=== PATIENT | male | born 1970 | race Caucasian/White ===

== ENCOUNTER 2016-11-26 00:11 | Emergency (ER) | payer MEDICAID, OTHER ==
[2016-11-26] MEDS ORDERED: KETOROLAC 60 MG/2 ML VIAL IVP STA (01:32)
[2016-11-26] MEDS ORDERED: KETOROLAC 30 MG/ML VIAL ONE (01:39)
[2016-11-26] MEDS ORDERED: HYDROcod/ACET 5/325 Prepack 6 PO STA (03:37)
[2016-11-26] MEDS ORDERED: HYDROcod/ACET 5/325 Prepack 6 PO ONE (03:40)
== END 2016-11-26 03:47 | disposition home or self-care (01) ==
DX: N20.2 Calculus of kidney with calculus of ureter (principal)

== ENCOUNTER 2016-11-29 01:44 | Emergency (ER) | payer MEDICAID ==
[2016-11-29] MEDS ORDERED: TAMSULOSIN 0.4 MG CAPSULE PO STA (03:12)
[2016-11-29] MEDS ORDERED: KETOROLAC 60 MG/2 ML VIAL IM STA (03:12)
[2016-11-29] MEDS ORDERED: HYDROmorphone 1 MG/ML SYRINGE IM STA (03:12)
[2016-11-29] MEDS ORDERED: TAMSULOSIN 0.4 MG CAPSULE ONE (03:14)
[2016-11-29] MEDS ORDERED: HYDROmorphone 1 MG/ML SYRINGE ONE (03:14)
[2016-11-29] MEDS ORDERED: KETOROLAC 60 MG/2 ML VIAL ONE (03:14)
[2016-11-29] MEDS ORDERED: oxyCODONE/ACET 5/325 Prepack 4 PO STA (05:16)
[2016-11-29] MEDS ORDERED: oxyCODONE/ACET 5/325 Prepack 4 PO ONE (05:19)
== END 2016-11-29 05:33 | disposition home or self-care (01) ==
DX: N23 Unspecified renal colic (principal); Z87.442 Personal history of urinary calculi
CPT/HCPCS: 96372; 99283; 99284; A9270; J1170

== ENCOUNTER 2017-04-04 00:28 | Inpatient (IN) | payer MEDICAID ==
[2017-04-04 00:57] LABS: BILIRUBIN,URINE NEGATIVE (NEGATIVE)
[2017-04-04 00:58] LABS: UA CHARGE (STRIP ONLY) YES; UR CULTURE IF IND NOT INDICATED
--- NOTE | 2017-04-04 02:00 | ED Physician Documentation ---
PD HPI ABD PAIN - Stated complaint Stated Complaint: ABDOMINAL PAIN - Chief complaint Chief Complaint: Abd Pain - History obtained from History obtained from: Patient - History of Present Illness Timing - onset: How many weeks ago (1) Timing - duration: Weeks (1) Timing - details: Gradual onset, Constant, Waxing and waning Pain level now: 6 Quality: Pain Location: Other (across lower abdomen, predominantly midline) Radiation: Lower back Improved by: Other (no ameliorating factors) Worsened by: Other (worse when he urinates or has BM) Associated symptoms: No: Fever, Nausea, Vomiting, Diarrhea, Constipation Similar symptoms before: Has not had sx before Recently seen: Not recently seen Review of Systems Constitutional: reports: Reviewed and negative Eyes: reports: Reviewed and negative Ears: reports: Reviewed and negative Nose: reports: Reviewed and negative Throat: reports: Reviewed and negative Cardiac: reports: Reviewed and negative Respiratory: reports: Reviewed and negative GI: reports: Abdominal Pain. denies: Abdominal Swelling, Nausea, Vomiting, Constipation, Diarrhea, Bloody / black stool : denies: Dysuria (pain is worse with urination, but no dysuria per se), Frequency Skin: reports: Reviewed and negative Musculoskeletal: denies: Back pain (abdominal pain radiates to back, but no back pain per se) Neurologic: reports: Reviewed and negative PD PAST MEDICAL HISTORY - Past Medical History Past Medical History: Yes : Kidney stones - Past Surgical History Past Surgical History: Yes General: Other - Present Medications Home Medications: Ambulatory Orders Medication Instructions Recorded Confirmed HYDROcod/ACETAM 5/325 [[place] 5/325] 1 - 2 ea PO Q6H PRN #20 tablet 11/26/16 Ondansetron HCl [Zofran] 4 mg PO Q6HR PRN #14 tablet 11/26/16 11/29/16 Tamsulosin [Flomax] 0.4 mg PO DAILY #7 capsule 11/29/16 oxyCODONE/ACET 5/325 [Percocet 5 2 each PO Q6H PRN #20 tablet 11/29/16 mg/325 mg] - Allergies Allergies/Adverse Reactions: Allergies Allergy/AdvReac Type Severity Reaction Status Date / Time No Known Drug Allergies Allergy Verified 04/04/17 00:34 - Living Situation Living Arrangement: reports: At home - Social History Does the pt smoke?: No Smoking Status: Never smoker Does the pt drink ETOH?: No Does the pt have substance abuse?: No - Immunizations Immunizations are current?: Yes - POLST Patient has POLST: No PD ED PE NORMAL - Vitals Vital signs reviewed: Yes - General General: Alert and oriented X 3, No acute distress (NAD at rest, appears uncomfortable with movement), Well developed/nourished - HEENT HEENT: Moist mucous membranes - Neck Neck: Supple, no meningeal sign - Cardiac Cardiac: RRR, No murmur - Respiratory Respiratory: No respiratory distress, Clear bilaterally - Abdomen Abdomen: Soft, Non distended, Other (moderate tenderness across lower abdomen without guarding or rebound) - Back Back: No CVA TTP - Derm Derm: Normal color, Warm and dry - Extremities Extremities: No edema Results - Vitals Vitals: Vital Signs - 24 hr 04/04/17 00:31 Temperature 36.4 C L Heart Rate 99 Respiratory 18 Rate Blood Pressure 134/79 H O2 Saturation 97 Oxygen O2 Source Room air - Labs Labs: Laboratory Tests 04/04/17 04/04/17 04/04/17 00:45 02:25 02:25 WBC 14.4 H RBC 4.22 L Hgb 12.7 L Hct 37.6 L MCV 89.0 MCH 30.0 MCHC 33.7 RDW 12.6 Plt Count 204 MPV 8.8 Neut # 10.7 H Lymph # 2.1 [place] # 1.3 H Eos # 0.1 Baso # 0.1 Absolute Nucleated RBC 0.00 Nucleated RBCs 0.0 Sodium 134 L Potassium 3.7 Chloride 102 Carbon Dioxide 23 Anion Gap 9.0 BUN 14 Creatinine 0.9 Estimated GFR (MDRD) 92 Glucose 143 H Glycated Hemoglobin Estim Average Glucose Lactic Acid Calcium 8.6 Total Bilirubin 0.5 AST 16 ALT 18 Alkaline Phosphatase 62 Total Protein 7.7 Albumin 3.7 Globulin 4.0 Albumin/Globulin Ratio 0.9 L Lipase 25 Urine Color YELLOW Urine Clarity CLEAR Urine pH 7.0 Ur Specific [place] 1.015 Urine Protein NEGATIVE Urine Glucose (UA) NEGATIVE Urine Ketones TRACE Urine Occult Blood TRACE-INTA Urine Nitrite NEGATIVE Urine Bilirubin NEGATIVE Urine Urobilinogen 0.2 (NORMAL) Ur Leukocyte Esterase NEGATIVE Ur Microscopic Review NOT INDICATED Urine Culture Comments NOT INDICATED 04/04/17 04/04/17 02:25 04:26 WBC RBC Hgb Hct MCV MCH MCHC RDW Plt Count MPV Neut # Lymph # [place] # Eos # Baso # Absolute Nucleated RBC Nucleated RBCs Sodium Potassium Chloride Carbon Dioxide Anion Gap BUN Creatinine Estimated GFR (MDRD) Glucose Glycated Hemoglobin 6.1 Estim Average Glucose 128 H Lactic Acid 0.5 Calcium Total Bilirubin AST ALT Alkaline Phosphatase Total Protein Albumin Globulin Albumin/Globulin Ratio Lipase Urine Color Urine Clarity Urine pH Ur Specific [place] Urine Protein Urine Glucose (UA) Urine Ketones Urine Occult Blood Urine Nitrite Urine Bilirubin Urine Urobilinogen Ur Leukocyte Esterase Ur Microscopic Review Urine Culture Comments - Rads (name of study) CT A/P Radiology: Prelim report reviewed, See rad report PD MEDICAL DECISION MAKING - ED course Complexity details: reviewed results, re-evaluated patient, considered differential, d/w patient ED course: D/W Dr. Quiles, recommends admit to hospitalist for medical management ( expecting that surgical management will be unlikely). D/W Dr. Patricio, will admit to hospitalist service Departure - Departure Disposition: [facility] DC/Xfer Clinical Impression: Diverticulitis of gastrointestinal tract Condition: Good Discharge Date/Time: 04/04/17 05:30
[2017-04-04 02:44] LABS: ALBUMIN/GLOBULIN RATIO 0.9 (1.0-2.2); BILIRUBIN,TOTAL 0.5 mg/dL (0.2-1.0); CALCIUM 8.6 mg/dL (8.5-10.3); CREATININE 0.9 mg/dL (0.6-1.2); POTASSIUM 3.7 mmol/L (3.5-5.0); TOTAL PROTEIN 7.7 g/dL (6.7-8.2)
[2017-04-04 02:45] LABS: BASOPHILS # (AUTO) 0.1 10^3/uL (0.0-0.1); BASOPHILS % (AUTO) 0.5 %; EOSINOPHILS # (AUTO) 0.1 10^3/uL (0.0-0.7); EOSINOPHILS % (AUTO) 0.9 %; HCT - HEMATOCRIT 37.6 % (42.0-52.0); HGB - HEMOGLOBIN 12.7 g/dL (14.0-18.0); LYMPHOCYTES # (AUTO) 2.1 10^3/uL (1.5-3.5); LYMPHOCYTES % (AUTO) 14.9 %; MEAN CORPUSCULAR HGB CONC 33.7 g/dL (32.0-36.0); MEAN PLATELET VOLUME 8.8 fL (7.4-11.4); MONOCYTES # (AUTO) 1.3 10^3/uL (0.0-1.0); MONOCYTES % (AUTO) 9.3 %; NEUTROPHILS # (AUTO) 10.7 10^3/uL (1.5-6.6); NEUTROPHILS % (AUTO) 74.4 %; RED BLOOD COUNT 4.22 10^6/uL (4.70-6.10); RED CELL DISTRIBUTION WIDTH 12.6 % (12.0-15.0); UNCORRECTED WHITE BLOOD COUNT 14.4 x10^3/uL; WHITE BLOOD COUNT 14.4 x10^3/uL (4.8-10.8)
[2017-04-04] MEDS ORDERED: IOPAMIDOL-300 100 ML VIAL IVP ONE (03:31)
--- NOTE | 2017-04-04 03:51 | CT Preliminary Report ---
Exam: CT Abdomen/Pelvis W/ IMPRESSION: 1. Sigmoid diverticulitis. Suspected developing diverticular abscess measuring approximately 3.7 x 3. 2 cm. 2. Fatty liver with mild splenomegaly. RADIA The above critical findings were discussed with Dr. Morrison by Dr. David Mcdonnell at 03:49 hrs on 03/10 05/25. SITE ID: [id number]
--- NOTE | 2017-04-04 03:54 | CT Report ---
EXAM: CT ABDOMEN AND PELVIS EXAM DATE: 04/04/2017 03:19 AM. CLINICAL HISTORY: Lower abdominal pain. COMPARISONS: 11/26/2016. TECHNIQUE: Routine helical CT imaging was performed through the abdomen and pelvis. IV contrast: Jocelyn onic. Enteric contrast: No. Reconstructions: Coronal and sagittal. In accordance with CT protocol optimization, one or more of the following dose reduction techniques w ere utilized for this exam: automated exposure control, adjustment of mA and/or KV based on patient s ize, or use of iterative reconstructive technique. FINDINGS: Lung Bases: Minimal bibasilar atelectasis. Liver: Suspected fatty infiltration. Gallbladder/Bile Ducts: Unremarkable. Spleen: Enlarged at 13.3 cm. Pancreas: Normal. Adrenal Glands: Normal. Kidneys: Normal. No masses or hydronephrosis. Peritoneal Cavity/Bowel: Sigmoid diverticulitis. Suspect diverticular abscess measuring approximately 3.2 x 3.7 cm. No small bowel obstruction seen. Normal sized retroperitoneal lymph nodes. Appendix ap pears normal. Pelvic Organs: Normal. The bladder and visualized pelvic organs are within normal limits. Vasculature: No aneurysms or other significant abnormality. Bones: No significant abnormality. Other: None. IMPRESSION: 1. Sigmoid diverticulitis. Suspected developing diverticular abscess measuring approximately 3.7 x 3. 2 cm. 2. Fatty liver with mild splenomegaly. RADIA The above critical findings were discussed with Dr. Morrison by Dr. David Mcdonnell at 03:49 hrs on 03/10 05/25. Referring Provider Line: [phone] SITE ID: [id number]
[2017-04-04] MEDS ORDERED: PIPERACILLIN/TAZOBACTAM 3.375 GM in SODIUM CHLORIDE 0.9% MINIBAG 100 ML IV STA (04:21)
[2017-04-04] MEDS ORDERED: ONDANSETRON ODT 4 MG TABLET TL PRN (04:41)
[2017-04-04] MEDS ORDERED: PIPERACILLIN/TAZOBACTAM 4.5 GM in SODIUM CHLORIDE 0.9% MINIBAG 100 ML IV SCH (05:00)
[2017-04-04] MEDS: SODIUM CHLORIDE FLUSH 0.9% 10 ML SYRINGE IVP SCH ×3 (05:34→20:08)
[2017-04-04] MEDS: SODIUM CHLORIDE 0.9% 1,000 ML IV SCH ×2 (06:22→17:03)
[2017-04-04 06:28] LABS: HEMOGLOBIN A1C 0.58 g/dL
--- NOTE | 2017-04-04 07:39 | PROVIDER PROGRESS NOTE ---
Assessment/Plan - Problem List (1) Abdominal pain, acute, left lower quadrant Assessment/Plan: improving. dialudid for pain IV. surgical consult for probable abscess in sigmoid colon with diverticulitis. (2) Abscess of sigmoid colon due to diverticulitis Assessment/Plan: acute. possible absecess on CT. Surgery to consult. pain medications with Dilaudid IV and Zofran IV for nausea or vomiting. NPO with meds. monitor for output and vital signs for hypotension. White blood count elevated with Leukocytosis. continue on Zosyn IV 3.375mg. Flagyl Iv added. (3) Obesity (BMI 30-39.9) Assessment/Plan: ongoing. continue to provide counseling for weight managment. Nutrition consult recommended for diet and calorie control. - Current Meds Current Meds: Current Medications Generic Name Dose Route Start Last Admin Trade Name Freq PRN Reason Stop Dose Admin Sodium Chloride 1,000 mls @ 125 mls/hr 04/04/17 05:00 04/04/17 06:22 Normal Saline 0.9% IV 125 mls/hr .Q8H NOEMI Administration Sodium Chloride 10 ml 04/04/17 06:00 04/04/17 05:34 Normal Saline Flush 0.9% IVP 10 ml Q8HR NOEMI Administration - Lab Result Lab results reviewed: Yes Fish Bone Diagrams: 04/04/17 02:25 04/04/17 02:25 Other Lab Results: Abnormal Lab Results 04/04/17 04/04/17 04/04/17 02:25 02:25 02:25 WBC 14.4 x10^3/uL H x10^3/uL (4.8-10.8) RBC 4.22 10^6/uL L 10^6/uL (4.70-6.10) Hgb 12.7 g/dL L g/dL (14.0-18.0) Hct 37.6 % L % (42.0-52.0) Neut # 10.7 10^3/uL H 10^3/uL (1.5-6.6) [place] # 1.3 10^3/uL H 10^3/uL (0.0-1.0) Sodium 134 mmol/L L mmol/L (135-145) Glucose 143 mg/dL H mg/dL (70-100) Estim Average Glucose 128 H (70-100) Albumin/Globulin Ratio 0.9 L (1.0-2.2) - EKG Results EKG Interpreted Independently: Yes EKG Comparison: Unchanged from prior EKG - Diagnostic Imaging Results Diagnostic Imaging Results: positive: Final report reviewed, Read independently (Patient will require at least anouther 24-48 hours inpatient treatment. He is high risk for worsening co morbid conditions. He will require IV medications with high risk for toxicity and additional diagnostics and consults.) Diagnostic Imaging Results Comments: CT of abdomen and pelvis shows sigmoid diverticulitis with possible abscess. surgery called for evaluation - Additional Planning Condition/Complexity: Stable Consult/Specialty: Surgery Plan Discussed with:: Patient, Spouse Time Spent: 31-60 minutes Subjective - Subjective Patient Reports: Resting Comfortably, Abdominal Pain Nursing Reports: No Complaints (patient is up to the bathroom. Denies nausea and vomiting and diarrhea.) Objective Vital Signs: Vital Signs - 24 hr 04/04/17 05:31 Temperature 36.8 C Heart Rate [ 91 Brachial] Respiratory 16 Rate Blood Pressure 128/71 [Left Brachial artery] O2 Saturation 96 Oxygen O2 Source Room air I&O (Last 24 Hrs): Intake and Output Totals x24h 04/02/17 04/03/17 04/04/17 23:59 23:59 23:59 Intake Total 275 Output Total 275 Balance 0 General: Alert, Oriented x3, Cooperative HEENT: PERRLA Neck: Supple, No JVD, No thyromegaly Lymphatic: no adenopathy Neuro: Alert, CN 2-12 Grossly Intact Cardiovascular: Regular rate, Normal S1, Normal S2, No murmurs Respiratory: Chest non-tender, No respiratory distress, Breath sounds nml Abdomen: Soft, Other (tender to left lower quadrant of abdomen with movement and palpation) Genitourinary: Normal Inspection Rectal: Non-Tender Extremities: No clubbing, No cyanosis, No edema, Normal pulses Skin: No rashes, No breakdown, No significant lesion - Results Results: Laboratory Results WBC 14.4 x10^3/uL (4.8-10.8) H 04/04/17 02:25 RBC 4.22 10^6/uL (4.70-6.10) L 04/04/17 02:25 Hgb 12.7 g/dL (14.0-18.0) L 04/04/17 02:25 Hct 37.6 % (42.0-52.0) L 04/04/17 02:25 MCV 89.0 fL (80.0-94.0) 04/04/17 02:25 MCH 30.0 pg (27.0-31.0) 04/04/17 02:25 MCHC 33.7 g/dL (32.0-36.0) 04/04/17 02:25 RDW 12.6 % (12.0-15.0) 04/04/17 02:25 Plt Count 204 10^3/uL (130-450) 04/04/17 02:25 MPV 8.8 fL (7.4-11.4) 04/04/17 02:25 Neut # 10.7 10^3/uL (1.5-6.6) H 04/04/17 02:25 Lymph # 2.1 10^3/uL (1.5-3.5) 04/04/17 02:25 [place] # 1.3 10^3/uL (0.0-1.0) H 04/04/17 02:25 Eos # 0.1 10^3/uL (0.0-0.7) 04/04/17 02:25 Baso # 0.1 10^3/uL (0.0-0.1) 04/04/17 02:25 Absolute Nucleated RBC 0.00 x10^3/uL 04/04/17 02:25 Nucleated RBCs 0.0 /100WBC 04/04/17 02:25 Sodium 134 mmol/L (135-145) L 04/04/17 02:25 Potassium 3.7 mmol/L (3.5-5.0) 04/04/17 02:25 Chloride 102 mmol/L (101-111) 04/04/17 02:25 Carbon Dioxide 23 mmol/L (21-32) 04/04/17 02:25 Anion Gap 9.0 (6-13) 04/04/17 02:25 BUN 14 mg/dL (6-20) 04/04/17 02:25 Creatinine 0.9 mg/dL (0.6-1.2) 04/04/17 02:25 Estimated GFR (MDRD) 92 (>89) 04/04/17 02:25 Glucose 143 mg/dL (70-100) H 04/04/17 02:25 Glycated Hemoglobin 6.1 % (4.6-6.2) 04/04/17 02:25 Estim Average Glucose 128 (70-100) H 04/04/17 02:25 Lactic Acid 0.5 mmol/L (0.5-2.2) 04/04/17 04:26 Calcium 8.6 mg/dL (8.5-10.3) 04/04/17 02:25 Total Bilirubin 0.5 mg/dL (0.2-1.0) 04/04/17 02:25 AST 16 IU/L (10-42) 04/04/17 02:25 ALT 18 IU/L (10-60) 04/04/17 02:25 Alkaline Phosphatase 62 IU/L (42-121) 04/04/17 02:25 Total Protein 7.7 g/dL (6.7-8.2) 04/04/17 02:25 Albumin 3.7 g/dL (3.2-5.5) 04/04/17 02:25 Globulin 4.0 g/dL (2.1-4.2) 04/04/17 02:25 Albumin/Globulin Ratio 0.9 (1.0-2.2) L 04/04/17 02:25 Lipase 25 U/L (22-51) 04/04/17 02:25 Urine Color YELLOW 04/04/17 00:45 Urine Clarity CLEAR (CLEAR) 04/04/17 00:45 Urine pH 7.0 PH (5.0-7.5) 04/04/17 00:45 Ur Specific [place] 1.015 (1.002-1.030) 04/04/17 00:45 Urine Protein NEGATIVE mg/dL (NEGATIVE) 04/04/17 00:45 Urine Glucose (UA) NEGATIVE mg/dL (NEGATIVE) 04/04/17 00:45 Urine Ketones TRACE mg/dL (NEGATIVE) 04/04/17 00:45 Urine Occult Blood TRACE-INTA (NEGATIVE) 04/04/17 00:45 Urine Nitrite NEGATIVE (NEGATIVE) 04/04/17 00:45 Urine Bilirubin NEGATIVE (NEGATIVE) 04/04/17 00:45 Urine Urobilinogen 0.2 (NORMAL) E.U./dL (NORMAL) 05/27/17 00:45 Ur Leukocyte Esterase NEGATIVE (NEGATIVE) 04/04/17 00:45 Ur Microscopic Review NOT INDICATED 04/04/17 00:45 Urine Culture Comments NOT INDICATED 04/04/17 00:45
[2017-04-04] MEDS: metroNIDAZOLE 500 MG/100 ML 100 ML IV SCH ×3 (08:44→20:07)
[2017-04-04] MEDS ORDERED: ENOXAPARIN 40 MG/0.4 ML SYRINGE SUBQ SCH (09:00)
[2017-04-04] MEDS ORDERED: POLYETHYLENE GLYCOL 3350 17 GM PACKET PO SCH (09:00)
[2017-04-04] MEDS: FAMOTIDINE 20 MG/50 ML 50 ML IV SCH (09:57)
[2017-04-04] MEDS: PIPERACILLIN/TAZOBACTAM 4.5 GM in SODIUM CHLORIDE 0.9% MINIBAG 100 ML IV SCH ×2 (11:24→18:03)
[2017-04-04 15:51] LABS: PHOSPHORUS 3.1 mg/dL (2.5-4.6)
[2017-04-04] MEDS ORDERED: ACETAMINOPHEN 1,000 MG/100 ML 100 ML IV ONE (16:00)
[2017-04-04] MEDS ORDERED: ACETAMINOPHEN 325 MG TABLET PO PRN (18:45)
[2017-04-05] MEDS: PIPERACILLIN/TAZOBACTAM 4.5 GM in SODIUM CHLORIDE 0.9% MINIBAG 100 ML IV SCH ×4 (00:07→18:14)
[2017-04-05] MEDS: SODIUM CHLORIDE 0.9% 1,000 ML IV SCH ×3 (03:19→14:27)
[2017-04-05] MEDS: metroNIDAZOLE 500 MG/100 ML 100 ML IV SCH ×4 (03:24→20:06)
[2017-04-05] MEDS: SODIUM CHLORIDE FLUSH 0.9% 10 ML SYRINGE IVP SCH ×3 (06:05→22:18)
[2017-04-05 06:19] LABS: BASOPHILS # (AUTO) 0.1 10^3/uL (0.0-0.1); BASOPHILS % (AUTO) 0.5 %; EOSINOPHILS # (AUTO) 0.1 10^3/uL (0.0-0.7); EOSINOPHILS % (AUTO) 0.6 %; HCT - HEMATOCRIT 35.3 % (42.0-52.0); HGB - HEMOGLOBIN 11.9 g/dL (14.0-18.0); LYMPHOCYTES % (AUTO) 16.3 %; MEAN CORPUSCULAR HEMOGLOBIN 30.1 pg (27.0-31.0); MEAN CORPUSCULAR HGB CONC 33.7 g/dL (32.0-36.0); MEAN CORPUSCULAR VOLUME 89.4 fL (80.0-94.0); MEAN PLATELET VOLUME 9.3 fL (7.4-11.4); MONOCYTES # (AUTO) 1.1 10^3/uL (0.0-1.0); NEUTROPHILS % (AUTO) 73.6 %; RED BLOOD COUNT 3.95 10^6/uL (4.70-6.10); RED CELL DISTRIBUTION WIDTH 12.7 % (12.0-15.0); UNCORRECTED WHITE BLOOD COUNT 12.2 x10^3/uL; WHITE BLOOD COUNT 12.2 x10^3/uL (4.8-10.8)
[2017-04-05 06:27] LABS: ALBUMIN/GLOBULIN RATIO 0.8 (1.0-2.2); BILIRUBIN,TOTAL 0.9 mg/dL (0.2-1.0); CALCIUM 8.6 mg/dL (8.5-10.3); CREATININE 0.8 mg/dL (0.6-1.2); POTASSIUM 3.6 mmol/L (3.5-5.0)
--- NOTE | 2017-04-05 07:30 | HISTORY & PHYSICAL EXAMINATION ---
DATE OF ADMISSION: 04/04/2017 PRIMARY CARE PROVIDER: Demarco Cartwright MD CHIEF COMPLAINT: Lower abdominal pain. HISTORY OF PRESENT ILLNESS: This is a 46-year-old male who presents with a 1-week history of lower ab dominal pain. Denies any fevers or chills. Denies any alteration in bowel movements. Denies any nause a or vomiting. Evaluation in the emergency room includes a white count of 14.4 with 10.7 neutrophils. Urine reveals no acute abnormalities. Urine specific gravity 1.015. A CAT scan of abdomen and pelvis with IV contrast, no oral contrast reveals sigmoid diverticulitis suspected developing diverticular abscess measuring approximately 3.7 x 3.2 cm2, fatty liver with mild splenomegaly noted. Degree of pa in, 10 being the worst, he notes 4 to 5, never worse than that. PAST MEDICAL HISTORY: History of kidney stones. MEDICATIONS UPON ADMISSION: None. ALLERGIES: NO KNOWN DRUG ALLERGIES. 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 Smoking, none. Alcohol, none. FAMILY MEDICAL HISTORY: Mother and father with a history of type 2 diabetes. REVIEW OF SYSTEMS: All other review of systems are reviewed and are negative except for as in HPI. PHYSICAL EXAMINATION VITAL SIGNS: Temperature is afebrile. Heart rate 99, blood pressure 134/79, respiratory rate 18, room air saturation 97%. CONSTITUTIONAL: Middle-aged male in no acute distress. HEAD: Normocephalic, atraumatic. EYES: PERRLA-DC. EOMI. MOUTH: No lesions. NECK: No adenopathy. Carotids 2+/4 without bruits. CHEST: Clear to auscultation. COR: Regular rate and rhythm, S1, S2 without murmur. ABDOMEN: Soft. There is tenderness in the bilateral lower quadrants, left greater than right. No rebo und, no guarding. Bowel sounds are present. EXTREMITIES: No pedal edema. SKIN: No rashes. PSYCHIATRIC: Mood and affect are appropriate. NEUROLOGIC: Alert and oriented x3. Motor strength is intact bilaterally. LABORATORY DATA: As above, also to include hemoglobin 12.7, hematocrit 37.6, MCV 89. platelets 204. S odium 134, potassium 3.7, chloride 102, bicarbonate 23, BUN 14, creatinine 0.9, calculated GFR 97, gl ucose 143, calcium 8.6, total bilirubin 0.5, AST 16, ALT 18, alkaline phosphatase 62, total protein 7 .7, albumin 3.7, lipase 25. ASSESSMENT AND PLAN 1. Acute sigmoid diverticulitis with possible abscess, 3.2 x 3.7 cm2, present on admission. We will g o ahead and treat with IV Zosyn 4.5 grams IV q.6 hours. General Surgery, Dr. Quiles was notified by ER physician regarding this patient, and for consultation. We will make n.p.o., IV fluids, IV Dilaud id p.r.n. pain. Check lactate level. 2. Deep venous thrombosis prophylaxis. We will place on subcutaneous prophylactic Lovenox. 3. Code status. The patient is FULL CODE. TIME SPENT: 60 minutes. JOB #: [id number] EXT JOB #:[id number]
[2017-04-05] MEDS: HYDROmorphone 1 MG/ML SYRINGE IVP PRN ×2 (08:02→11:43)
[2017-04-05] MEDS: FAMOTIDINE 20 MG/50 ML 50 ML IV SCH (09:43)
--- NOTE | 2017-04-05 11:15 | PROVIDER PROGRESS NOTE ---
Assessment/Plan - Problem List (1) Abscess of sigmoid colon due to diverticulitis Assessment/Plan: A/P 46 yo male with history of diverticulosis now with diverticulitis with suspected early abscess formation likely Hinchey class I. Recommend continued current IV abx while in hospital If fever does not recur then patient can go home on Cipro/ flagyl combo for 2 weeks. IR intervention may be necessary in future if collection organizes. Recommend adding fiber to diet as well as staying hydrated. If meets criteria for discharge recommend follow up in [address] Valera for discussion of colonoscopy and Laparoscopic Surgical vs open options due to this "complicated first attack" - Current Meds Current Meds: Current Medications Generic Name Dose Route Start Last Admin Trade Name Freq PRN Reason Stop Dose Admin Hydromorphone HCl 1 mg 04/04/17 04:41 04/05/17 08:02 Dilaudid Inj IVP 1 mg Q2HR PRN Administration Pain 8 to 10 Sodium Chloride 1,000 mls @ 125 mls/hr 04/04/17 05:00 04/05/17 06:03 Normal Saline 0.9% IV Not Given .Q8H NOEMI Famotidine 50 mls @ 100 mls/hr 04/04/17 09:00 04/05/17 09:43 Pepcid 20 Mg/50 Ml IV 100 mls/hr DAILY NOEMI Administration Piperacillin Sod/Tazobactam 100 mls @ 200 mls/hr 04/04/17 12:00 04/05/17 05:57 Sod 4.5 gm/ Sodium Chloride IV 200 mls/hr Q6H NOEMI Administration Metronidazole 100 mls @ 100 mls/hr 04/04/17 08:00 04/05/17 08:02 Flagyl 500 Mg/100 Ml IV 100 mls/hr Q6H NOEMI Administration Sodium Chloride 10 ml 04/04/17 06:00 04/05/17 06:05 Normal Saline Flush 0.9% IVP Not Given Q8HR NOEMI - Lab Result Fish Bone Diagrams: 04/05/17 05:18 04/05/17 05:18 - Additional Planning Plan Discussed with:: Patient Subjective - Subjective Patient Reports: Feeling Better (Pt seen at bedside. No new complaints. Denies SOB, CP , F/C/NS, D/C. c/o minimal abdominal pain at lower quadrants. ambulating well and urinating well.), Resting Comfortably Nursing Reports: No Complaints Objective Vital Signs: Vital Signs - 24 hr 04/04/17 04/04/17 04/05/17 15:30 17:22 00:44 Temperature 38.1 C H 37.5 C 36.6 C Heart Rate [ 91 90 Brachial] Respiratory 18 16 Rate Blood Pressure 124/71 129/73 [Left Brachial artery] O2 Saturation 99 96 04/05/17 07:35 Temperature 36.8 C Heart Rate [ 80 Brachial] Respiratory 16 Rate Blood Pressure 120/60 [Left Brachial artery] O2 Saturation 97 Oxygen O2 Source Room air I&O (Last 24 Hrs): Intake and Output Totals x24h 04/03/17 04/04/17 04/05/17 23:59 23:59 23:59 Intake Total 2129 1037 Output Total 275 775 Balance 1854 262 General: Alert, Oriented x3 HEENT: EOMI Neuro: Alert Cardiovascular: Regular rate Respiratory: Chest non-tender, Breath sounds nml Abdomen: Normal bowel sounds (ND, soft. Mild tenderness to deep palpation LLQ> suprapubic), Soft Extremities: No edema, Normal pulses - Results Results: Laboratory Results WBC 12.2 x10^3/uL (4.8-10.8) H 04/05/17 05:18 RBC 3.95 10^6/uL (4.70-6.10) L 04/05/17 05:18 Hgb 11.9 g/dL (14.0-18.0) L 04/05/17 05:18 Hct 35.3 % (42.0-52.0) L 04/05/17 05:18 MCV 89.4 fL (80.0-94.0) 04/05/17 05:18 MCH 30.1 pg (27.0-31.0) 04/05/17 05:18 MCHC 33.7 g/dL (32.0-36.0) 04/05/17 05:18 RDW 12.7 % (12.0-15.0) 04/05/17 05:18 Plt Count 185 10^3/uL (130-450) 04/05/17 05:18 MPV 9.3 fL (7.4-11.4) 04/05/17 05:18 Neut # 9.0 10^3/uL (1.5-6.6) H 04/05/17 05:18 Lymph # 2.0 10^3/uL (1.5-3.5) 04/05/17 05:18 [place] # 1.1 10^3/uL (0.0-1.0) H 04/05/17 05:18 Eos # 0.1 10^3/uL (0.0-0.7) 04/05/17 05:18 Baso # 0.1 10^3/uL (0.0-0.1) 04/05/17 05:18 Absolute Nucleated RBC 0.00 x10^3/uL 04/05/17 05:18 Nucleated RBCs 0.0 /100WBC 04/05/17 05:18 Sodium 138 mmol/L (135-145) 04/05/17 05:18 Potassium 3.6 mmol/L (3.5-5.0) 04/05/17 05:18 Chloride 106 mmol/L (101-111) 04/05/17 05:18 Carbon Dioxide 24 mmol/L (21-32) 04/05/17 05:18 Anion Gap 8.0 (6-13) 04/05/17 05:18 BUN 9 mg/dL (6-20) 04/05/17 05:18 Creatinine 0.8 mg/dL (0.6-1.2) 04/05/17 05:18 Estimated GFR (MDRD) 105 (>89) 04/05/17 05:18 Glucose 89 mg/dL (70-100) 04/05/17 05:18 Glycated Hemoglobin 6.1 % (4.6-6.2) 04/04/17 02:25 Estim Average Glucose 128 (70-100) H 04/04/17 02:25 Lactic Acid 0.5 mmol/L (0.5-2.2) 04/04/17 04:26 Calcium 8.6 mg/dL (8.5-10.3) 04/05/17 05:18 Phosphorus 3.1 mg/dL (2.5-4.6) 04/04/17 07:50 Magnesium 2.0 mg/dL (1.7-2.8) 04/04/17 07:50 Total Bilirubin 0.9 mg/dL (0.2-1.0) 04/05/17 05:18 AST 14 IU/L (10-42) 04/05/17 05:18 ALT 14 IU/L (10-60) 04/05/17 05:18 Alkaline Phosphatase 51 IU/L (42-121) 04/05/17 05:18 C-Reactive Protein 15.3 mg/dL (0-1.0) H 04/04/17 07:50 Total Protein 7.0 g/dL (6.7-8.2) 04/05/17 05:18 Albumin 3.2 g/dL (3.2-5.5) 04/05/17 05:18 Globulin 3.8 g/dL (2.1-4.2) 04/05/17 05:18 Albumin/Globulin Ratio 0.8 (1.0-2.2) L 04/05/17 05:18 Amylase 46 U/L (28-100) 04/05/17 05:18 Lipase 24 U/L (22-51) 04/05/17 05:18 Urine Color YELLOW 04/04/17 00:45 Urine Clarity CLEAR (CLEAR) 04/04/17 00:45 Urine pH 7.0 PH (5.0-7.5) 04/04/17 00:45 Ur Specific [place] 1.015 (1.002-1.030) 04/04/17 00:45 Urine Protein NEGATIVE mg/dL (NEGATIVE) 04/04/17 00:45 Urine Glucose (UA) NEGATIVE mg/dL (NEGATIVE) 04/04/17 00:45 Urine Ketones TRACE mg/dL (NEGATIVE) 04/04/17 00:45 Urine Occult Blood TRACE-INTA (NEGATIVE) 04/04/17 00:45 Urine Nitrite NEGATIVE (NEGATIVE) 04/04/17 00:45 Urine Bilirubin NEGATIVE (NEGATIVE) 04/04/17 00:45 Urine Urobilinogen 0.2 (NORMAL) E.U./dL (NORMAL) 04/04/17 00:45 Ur Leukocyte Esterase NEGATIVE (NEGATIVE) 04/04/17 00:45 Ur Microscopic Review NOT INDICATED 04/04/17 00:45 Urine Culture Comments NOT INDICATED 04/04/17 00:45
--- NOTE | 2017-04-05 14:00 | PROVIDER PROGRESS NOTE ---
Assessment/Plan - Problem List (1) Abdominal pain, acute, left lower quadrant Assessment/Plan: improving. white blood cell count is improving and patient remains afebrile today. He remains afebrile and continues on antibiotics for diverticulitis. will transition to oral before discharge. continue with pain medication as needed. (2) Abscess of sigmoid colon due to diverticulitis Assessment/Plan: ongoing but improving. surgery is following. continue with antibiotics and monitor for fever and elevated white blood count. (3) Obesity (BMI 30-39.9) Assessment/Plan: ongoing. continue to encourage ambulation and low fat low calorie diet. recommend nutrition counseling as outpatient - Current Meds Current Meds: Current Medications Generic Name Dose Route Start Last Admin Trade Name Freq PRN Reason Stop Dose Admin Hydromorphone HCl 1 mg 04/04/17 04:41 04/05/17 11:43 Dilaudid Inj IVP 1 mg Q2HR PRN Administration Pain 8 to 10 Sodium Chloride 1,000 mls @ 125 mls/hr 04/04/17 05:00 04/05/17 06:03 Normal Saline 0.9% IV Not Given .Q8H NOEMI Famotidine 50 mls @ 100 mls/hr 04/04/17 09:00 04/05/17 09:43 Pepcid 20 Mg/50 Ml IV 100 mls/hr DAILY NOEMI Administration Piperacillin Sod/Tazobactam 100 mls @ 200 mls/hr 04/04/17 12:00 04/05/17 11:43 Sod 4.5 gm/ Sodium Chloride IV 200 mls/hr Q6H NOEMI Administration Metronidazole 100 mls @ 100 mls/hr 04/04/17 08:00 04/05/17 08:02 Flagyl 500 Mg/100 Ml IV 100 mls/hr Q6H NOEMI Administration Sodium Chloride 10 ml 04/04/17 06:00 04/05/17 06:05 Normal Saline Flush 0.9% IVP Not Given Q8HR NOEMI - Lab Result Lab results reviewed: Yes Fish Bone Diagrams: 04/05/17 05:18 04/05/17 05:18 Other Lab Results: Abnormal Lab Results 04/04/17 04/04/17 04/04/17 02:25 02:25 02:25 WBC 14.4 x10^3/uL H x10^3/uL (4.8-10.8) RBC 4.22 10^6/uL L 10^6/uL (4.70-6.10) Hgb 12.7 g/dL L g/dL (14.0-18.0) Hct 37.6 % L % (42.0-52.0) Neut # 10.7 10^3/uL H 10^3/uL (1.5-6.6) [place] # 1.3 10^3/uL H 10^3/uL (0.0-1.0) Sodium 134 mmol/L L mmol/L (135-145) Glucose 143 mg/dL H mg/dL (70-100) Estim Average Glucose 128 H (70-100) C-Reactive Protein Albumin/Globulin Ratio 0.9 L (1.0-2.2) Lipase 04/04/17 04/04/17 04/05/17 07:50 07:50 05:18 WBC 12.2 x10^3/uL H x10^3/uL (4.8-10.8) RBC 3.95 10^6/uL L 10^6/uL (4.70-6.10) Hgb 11.9 g/dL L g/dL (14.0-18.0) Hct 35.3 % L % (42.0-52.0) Neut # 9.0 10^3/uL H 10^3/uL (1.5-6.6) [place] # 1.1 10^3/uL H 10^3/uL (0.0-1.0) Sodium Glucose Estim Average Glucose C-Reactive Protein 15.3 mg/dL H mg/dL (0-1.0) Albumin/Globulin Ratio Lipase 21 U/L L U/L (22-51) 04/05/17 05:18 WBC RBC Hgb Hct Neut # [place] # Sodium Glucose Estim Average Glucose C-Reactive Protein Albumin/Globulin Ratio 0.8 L (1.0-2.2) Lipase - Additional Planning Condition/Complexity: Improved My Orders: My Active Orders 04/04/17 18:45 Acetaminophen [Tylenol] 650 mg PO Q4HR PRN 04/05/17 Lunch Clear Liquid Diet [DIET] Consult/Specialty: Surgery Plan Discussed with:: Patient, Spouse, Case Management Time Spent: 31-60 minutes (Plan to discharge patient within the next 24-48 hours. Patient is high risk for worsening comorbid conditions and will require additional night stay) Subjective - Subjective Patient Reports: Feeling Better, Resting Comfortably, Abdominal Pain (moderate but improving, no nausea or vomiting, no chest pain or shortness of breath) Nursing Reports: No Complaints Objective Vital Signs: Vital Signs - 24 hr 04/04/17 04/04/17 04/05/17 15:30 17:22 00:44 Temperature 38.1 C H 37.5 C 36.6 C Heart Rate [ 91 90 Brachial] Respiratory 18 16 Rate Blood Pressure 124/71 129/73 [Left Brachial artery] O2 Saturation 99 96 04/05/17 07:35 Temperature 36.8 C Heart Rate [ 80 Brachial] Respiratory 16 Rate Blood Pressure 120/60 [Left Brachial artery] O2 Saturation 97 Oxygen O2 Source Room air I&O (Last 24 Hrs): Intake and Output Totals x24h 04/03/17 04/04/17 04/05/17 23:59 23:59 23:59 Intake Total 2129 1037 Output Total 275 775 Balance 1854 262 General: Alert, Oriented x3 HEENT: PERRLA Neck: Supple, No JVD Lymphatic: no adenopathy Neuro: Alert Cardiovascular: Regular rate, Normal S1, Normal S2 Respiratory: Chest non-tender, No respiratory distress, Breath sounds nml Abdomen: Normal bowel sounds, Soft, Other (tender to left lower quadrant with palpation) Extremities: No clubbing, No cyanosis, No edema Skin: No rashes, No breakdown, No significant lesion - Results Results: Laboratory Results WBC 12.2 x10^3/uL (4.8-10.8) H 04/05/17 05:18 RBC 3.95 10^6/uL (4.70-6.10) L 04/05/17 05:18 Hgb 11.9 g/dL (14.0-18.0) L 04/05/17 05:18 Hct 35.3 % (42.0-52.0) L 04/05/17 05:18 MCV 89.4 fL (80.0-94.0) 04/05/17 05:18 MCH 30.1 pg (27.0-31.0) 04/05/17 05:18 MCHC 33.7 g/dL (32.0-36.0) 04/05/17 05:18 RDW 12.7 % (12.0-15.0) 04/05/17 05:18 Plt Count 185 10^3/uL (130-450) 04/05/17 05:18 MPV 9.3 fL (7.4-11.4) 04/05/17 05:18 Neut # 9.0 10^3/uL (1.5-6.6) H 04/05/17 05:18 Lymph # 2.0 10^3/uL (1.5-3.5) 04/05/17 05:18 [place] # 1.1 10^3/uL (0.0-1.0) H 04/05/17 05:18 Eos # 0.1 10^3/uL (0.0-0.7) 04/05/17 05:18 Baso # 0.1 10^3/uL (0.0-0.1) 04/05/17 05:18 Absolute Nucleated RBC 0.00 x10^3/uL 04/05/17 05:18 Nucleated RBCs 0.0 /100WBC 04/05/17 05:18 Sodium 138 mmol/L (135-145) 04/05/17 05:18 Potassium 3.6 mmol/L (3.5-5.0) 04/05/17 05:18 Chloride 106 mmol/L (101-111) 04/05/17 05:18 Carbon Dioxide 24 mmol/L (21-32) 04/05/17 05:18 Anion Gap 8.0 (6-13) 04/05/17 05:18 BUN 9 mg/dL (6-20) 04/05/17 05:18 Creatinine 0.8 mg/dL (0.6-1.2) 04/05/17 05:18 Estimated GFR (MDRD) 105 (>89) 04/05/17 05:18 Glucose 89 mg/dL (70-100) 04/05/17 05:18 Glycated Hemoglobin 6.1 % (4.6-6.2) 04/04/17 02:25 Estim Average Glucose 128 (70-100) H 04/04/17 02:25 Lactic Acid 0.5 mmol/L (0.5-2.2) 04/04/17 04:26 Calcium 8.6 mg/dL (8.5-10.3) 04/05/17 05:18 Phosphorus 3.1 mg/dL (2.5-4.6) 04/04/17 07:50 Magnesium 2.0 mg/dL (1.7-2.8) 04/04/17 07:50 Total Bilirubin 0.9 mg/dL (0.2-1.0) 04/05/17 05:18 AST 14 IU/L (10-42) 04/05/17 05:18 ALT 14 IU/L (10-60) 04/05/17 05:18 Alkaline Phosphatase 51 IU/L (42-121) 04/05/17 05:18 C-Reactive Protein 15.3 mg/dL (0-1.0) H 04/04/17 07:50 Total Protein 7.0 g/dL (6.7-8.2) 04/05/17 05:18 Albumin 3.2 g/dL (3.2-5.5) 04/05/17 05:18 Globulin 3.8 g/dL (2.1-4.2) 04/05/17 05:18 Albumin/Globulin Ratio 0.8 (1.0-2.2) L 04/05/17 05:18 Amylase 46 U/L (28-100) 04/05/17 05:18 Lipase 24 U/L (22-51) 04/05/17 05:18 Urine Color YELLOW 04/04/17 00:45 Urine Clarity CLEAR (CLEAR) 04/04/17 00:45 Urine pH 7.0 PH (5.0-7.5) 04/04/17 00:45 Ur Specific [place] 1.015 (1.002-1.030) 04/04/17 00:45 Urine Protein NEGATIVE mg/dL (NEGATIVE) 04/04/17 00:45 Urine Glucose (UA) NEGATIVE mg/dL (NEGATIVE) 04/04/17 00:45 Urine Ketones TRACE mg/dL (NEGATIVE) 04/04/17 00:45 Urine Occult Blood TRACE-INTA (NEGATIVE) 04/04/17 00:45 Urine Nitrite NEGATIVE (NEGATIVE) 04/04/17 00:45 Urine Bilirubin NEGATIVE (NEGATIVE) 04/04/17 00:45 Urine Urobilinogen 0.2 (NORMAL) E.U./dL (NORMAL) 04/04/17 00:45 Ur Leukocyte Esterase NEGATIVE (NEGATIVE) 04/04/17 00:45 Ur Microscopic Review NOT INDICATED 04/04/17 00:45 Urine Culture Comments NOT INDICATED 04/04/17 00:45
[2017-04-06] MEDS: PIPERACILLIN/TAZOBACTAM 4.5 GM in SODIUM CHLORIDE 0.9% MINIBAG 100 ML IV SCH ×4 (00:01→18:38)
[2017-04-06] MEDS: SODIUM CHLORIDE 0.9% 1,000 ML IV SCH ×3 (00:02→11:51)
[2017-04-06] MEDS: metroNIDAZOLE 500 MG/100 ML 100 ML IV SCH ×4 (01:43→23:47)
[2017-04-06] MEDS: SODIUM CHLORIDE FLUSH 0.9% 10 ML SYRINGE IVP SCH ×3 (05:23→23:47)
[2017-04-06 06:05] LABS: BASOPHILS % (AUTO) 0.3 %; HGB - HEMOGLOBIN 11.7 g/dL (14.0-18.0); LYMPHOCYTES # (AUTO) 1.8 10^3/uL (1.5-3.5); LYMPHOCYTES % (AUTO) 13.4 %; MEAN CORPUSCULAR HEMOGLOBIN 30.4 pg (27.0-31.0); MONOCYTES # (AUTO) 1.1 10^3/uL (0.0-1.0); MONOCYTES % (AUTO) 8.3 %; RED BLOOD COUNT 3.85 10^6/uL (4.70-6.10); RED CELL DISTRIBUTION WIDTH 12.7 % (12.0-15.0)
[2017-04-06 06:07] LABS: EOSINOPHILS % (AUTO) 0.2 %; HCT - HEMATOCRIT 33.6 % (42.0-52.0); MEAN CORPUSCULAR HGB CONC 34.8 g/dL (32.0-36.0); MEAN CORPUSCULAR VOLUME 87.4 fL (80.0-94.0); NEUTROPHILS # (AUTO) 10.3 10^3/uL (1.5-6.6); NEUTROPHILS % (AUTO) 77.8 %; UNCORRECTED WHITE BLOOD COUNT 13.2 x10^3/uL; WHITE BLOOD COUNT 13.2 x10^3/uL (4.8-10.8)
[2017-04-06 06:20] LABS: ALBUMIN/GLOBULIN RATIO 0.7 (1.0-2.2); BILIRUBIN,TOTAL 0.8 mg/dL (0.2-1.0); CALCIUM 8.4 mg/dL (8.5-10.3); CREATININE 0.8 mg/dL (0.6-1.2); POTASSIUM 3.7 mmol/L (3.5-5.0); TOTAL PROTEIN 7.1 g/dL (6.7-8.2)
[2017-04-06] MEDS: HYDROmorphone 1 MG/ML SYRINGE IVP PRN ×3 (08:07→23:06)
--- NOTE | 2017-04-06 09:05 | PROVIDER PROGRESS NOTE ---
Assessment/Plan - Problem List (1) Abscess of sigmoid colon due to diverticulitis Assessment/Plan: 46 yo male with history of diverticulosis now with diverticulitis with suspected early abscess formation likely H[place] class I. Recommend continued current IV abx while in hospital Consider repeat CT SCAN with IV and oral contrast if leukocytosis not improving or patient continues to spike fevers. collection may be organizing and will need IR drainage if thats the case. If fever does not recur then patient can go home on Cipro/ flagyl combo for 2 weeks. IR intervention may be necessary in future if collection organizes. Recommend adding fiber to diet as well as staying hydrated. If meets criteria for discharge recommend follow up in [address] Valera for discussion of colonoscopy and Laparoscopic Surgical vs open options due to this "complicated first attack" - Current Meds Current Meds: Current Medications Generic Name Dose Route Start Last Admin Trade Name Freq PRN Reason Stop Dose Admin Hydromorphone HCl 1 mg 04/04/17 04:41 04/06/17 08:07 Dilaudid Inj IVP 1 mg Q2HR PRN Administration Pain 8 to 10 Sodium Chloride 1,000 mls @ 125 mls/hr 04/04/17 05:00 04/06/17 01:22 Normal Saline 0.9% IV Not Given .Q8H NOEMI Famotidine 50 mls @ 100 mls/hr 04/04/17 09:00 04/05/17 09:43 Pepcid 20 Mg/50 Ml IV 100 mls/hr DAILY NOEMI Administration Piperacillin Sod/Tazobactam 100 mls @ 200 mls/hr 04/04/17 12:00 04/06/17 06:17 Sod 4.5 gm/ Sodium Chloride IV 200 mls/hr Q6H NOEMI Administration Metronidazole 100 mls @ 100 mls/hr 04/04/17 08:00 04/06/17 08:11 Flagyl 500 Mg/100 Ml IV 100 mls/hr Q6H NOEMI Administration Sodium Chloride 10 ml 04/04/17 06:00 04/06/17 05:23 Normal Saline Flush 0.9% IVP Not Given Q8HR NOEMI - Lab Result Fish Bone Diagrams: 04/06/17 05:19 04/06/17 05:19 Subjective - Subjective Patient Reports: Feeling Better, Resting Comfortably Objective Vital Signs: Vital Signs - 24 hr 04/05/17 04/06/17 21:44 00:43 Temperature 37.3 C 36.7 C Heart Rate [ 91 88 Brachial] Respiratory 20 16 Rate Blood Pressure 123/73 127/62 [Left Brachial artery] O2 Saturation 98 97 Oxygen O2 Source Room air I&O (Last 24 Hrs): Intake and Output Totals x24h 04/04/17 04/05/17 04/06/17 23:59 23:59 23:59 Intake Total 2129 3179 1008 Output Total 275 775 Balance 1854 2404 1008 General: Oriented x3 Cardiovascular: Regular rate Respiratory: Breath sounds nml Abdomen: Normal bowel sounds, Soft, No tenderness - Results Results: Laboratory Results WBC 13.2 x10^3/uL (4.8-10.8) H 04/06/17 05:19 RBC 3.85 10^6/uL (4.70-6.10) L 04/06/17 05:19 Hgb 11.7 g/dL (14.0-18.0) L 04/06/17 05:19 Hct 33.6 % (42.0-52.0) L 04/06/17 05:19 MCV 87.4 fL (80.0-94.0) 04/06/17 05:19 MCH 30.4 pg (27.0-31.0) 04/06/17 05:19 MCHC 34.8 g/dL (32.0-36.0) 04/06/17 05:19 RDW 12.7 % (12.0-15.0) 04/06/17 05:19 Plt Count 187 10^3/uL (130-450) 04/06/17 05:19 MPV 9.0 fL (7.4-11.4) 04/06/17 05:19 Neut # 10.3 10^3/uL (1.5-6.6) H 04/06/17 05:19 Lymph # 1.8 10^3/uL (1.5-3.5) 04/06/17 05:19 [place] # 1.1 10^3/uL (0.0-1.0) H 04/06/17 05:19 Eos # 0.0 10^3/uL (0.0-0.7) 04/06/17 05:19 Baso # 0.0 10^3/uL (0.0-0.1) 04/06/17 05:19 Absolute Nucleated RBC 0.00 x10^3/uL 04/06/17 05:19 Nucleated RBCs 0.0 /100WBC 04/06/17 05:19 Sodium 136 mmol/L (135-145) 04/06/17 05:19 Potassium 3.7 mmol/L (3.5-5.0) 04/06/17 05:19 Chloride 105 mmol/L (101-111) 04/06/17 05:19 Carbon Dioxide 25 mmol/L (21-32) 04/06/17 05:19 Anion Gap 6.0 (6-13) 04/06/17 05:19 BUN 8 mg/dL (6-20) 04/06/17 05:19 Creatinine 0.8 mg/dL (0.6-1.2) 04/06/17 05:19 Estimated GFR (MDRD) 105 (>89) 04/06/17 05:19 Glucose 100 mg/dL (70-100) 04/06/17 05:19 Glycated Hemoglobin 6.1 % (4.6-6.2) 04/04/17 02:25 Estim Average Glucose 128 (70-100) H 04/04/17 02:25 Lactic Acid 0.5 mmol/L (0.5-2.2) 04/04/17 04:26 Calcium 8.4 mg/dL (8.5-10.3) L 04/06/17 05:19 Phosphorus 3.1 mg/dL (2.5-4.6) 04/04/17 07:50 Magnesium 2.0 mg/dL (1.7-2.8) 04/04/17 07:50 Total Bilirubin 0.8 mg/dL (0.2-1.0) 04/06/17 05:19 AST 14 IU/L (10-42) 04/06/17 05:19 ALT 16 IU/L (10-60) 04/06/17 05:19 Alkaline Phosphatase 48 IU/L (42-121) 04/06/17 05:19 C-Reactive Protein 15.3 mg/dL (0-1.0) H 04/04/17 07:50 Total Protein 7.1 g/dL (6.7-8.2) 04/06/17 05:19 Albumin 3.0 g/dL (3.2-5.5) L 04/06/17 05:19 Globulin 4.1 g/dL (2.1-4.2) 04/06/17 05:19 Albumin/Globulin Ratio 0.7 (1.0-2.2) L 04/06/17 05:19 Amylase 46 U/L (28-100) 04/05/17 05:18 Lipase 24 U/L (22-51) 04/05/17 05:18 Urine Color YELLOW 04/04/17 00:45 Urine Clarity CLEAR (CLEAR) 04/04/17 00:45 Urine pH 7.0 PH (5.0-7.5) 04/04/17 00:45 Ur Specific [place] 1.015 (1.002-1.030) 04/04/17 00:45 Urine Protein NEGATIVE mg/dL (NEGATIVE) 04/04/17 00:45 Urine Glucose (UA) NEGATIVE mg/dL (NEGATIVE) 04/04/17 00:45 Urine Ketones TRACE mg/dL (NEGATIVE) 04/04/17 00:45 Urine Occult Blood TRACE-INTA (NEGATIVE) 04/04/17 00:45 Urine Nitrite NEGATIVE (NEGATIVE) 04/04/17 00:45 Urine Bilirubin NEGATIVE (NEGATIVE) 04/04/17 00:45 Urine Urobilinogen 0.2 (NORMAL) E.U./dL (NORMAL) 04/04/17 00:45 Ur Leukocyte Esterase NEGATIVE (NEGATIVE) 04/04/17 00:45 Ur Microscopic Review NOT INDICATED 04/04/17 00:45 Urine Culture Comments NOT INDICATED 04/04/17 00:45
[2017-04-06] MEDS: FAMOTIDINE 20 MG/50 ML 50 ML IV SCH (10:02)
--- NOTE | 2017-04-06 10:06 | XRAY Preliminary Report ---
Exam: XR Abdomen Acute IMPRESSION: 1. Normal chest x-ray. 2. Fluid within nondilated stomach, large and small bowel loops. Question gastroenteritis. [facility] SITE ID: [id number]
--- NOTE | 2017-04-06 10:09 | XRAY Report ---
EXAM: ABDOMINAL SERIES AND PA CHEST EXAM DATE: 04/06/2017 09:00 AM. CLINICAL HISTORY: Fluid in abdomen with pain and history of diverticulitis. COMPARISON: None. TECHNIQUE: 2 views abdomen and 1 view chest. FINDINGS: CHEST: Lungs/Pleura: No focal opacities. No effusion or pneumothorax. Mediastinum: Within exam limitations, cardiomediastinal contour is normal. ABDOMEN: Bowel Gas Pattern: Fluid noted within nondilated stomach, large and small bowel loops. Free Air: None. Other: Surgical clips within left hemiabdomen and left hemipelvis. IMPRESSION: 1. Normal chest x-ray. 2. Fluid within nondilated stomach, large and small bowel loops. Question gastroenteritis. [facility] Referring Provider Line: [phone] SITE ID: [id number]
--- NOTE | 2017-04-06 10:19 | PROVIDER PROGRESS NOTE ---
Assessment/Plan - Problem List (1) Abdominal pain, acute, left lower quadrant Assessment/Plan: ongoing. will add a CT with IV and oral contrast to see if diverticulitis is organizing and will need surgical intervention. continue with IV antibiotics and monitor white cound. patient denies fever but will follow since this was present yesterday. bowel more distended and tender today in left lower quadrant. (2) Abscess of sigmoid colon due to diverticulitis Assessment/Plan: ongoing. Continue to monitor for pain and white blood count elevated. CT with contrast to look for organization in bowel. Sug[place] on consult. pending results of CT. continue to advance diet as tolerated (3) Obesity (BMI 30-39.9) Assessment/Plan: ongoing. continue to provide counseling for weight loss and nutrition (4) Elevated C-reactive protein (CRP) Assessment/Plan: acute. continue with antibiotics and monitoring for fever, or signs of sepsis or perforation - Current Meds Current Meds: Current Medications Generic Name Dose Route Start Last Admin Trade Name Freq PRN Reason Stop Dose Admin Hydromorphone HCl 1 mg 04/04/17 04:41 04/06/17 08:07 Dilaudid Inj IVP 1 mg Q2HR PRN Administration Pain 8 to 10 Sodium Chloride 1,000 mls @ 125 mls/hr 04/04/17 05:00 04/06/17 01:22 Normal Saline 0.9% IV Not Given .Q8H NOEMI Famotidine 50 mls @ 100 mls/hr 04/04/17 09:00 04/06/17 10:02 Pepcid 20 Mg/50 Ml IV 100 mls/hr DAILY NOEMI Administration Piperacillin Sod/Tazobactam 100 mls @ 200 mls/hr 04/04/17 12:00 04/06/17 06:17 Sod 4.5 gm/ Sodium Chloride IV 200 mls/hr Q6H NOEMI Administration Metronidazole 100 mls @ 100 mls/hr 04/04/17 08:00 04/06/17 08:11 Flagyl 500 Mg/100 Ml IV 100 mls/hr Q6H NOEMI Administration Sodium Chloride 10 ml 04/04/17 06:00 04/06/17 05:23 Normal Saline Flush 0.9% IVP Not Given Q8HR NOEMI - Lab Result Lab results reviewed: Yes Fish Bone Diagrams: 04/06/17 05:19 04/06/17 05:19 Other Lab Results: Abnormal Lab Results 04/05/17 04/05/17 04/06/17 05:18 05:18 05:19 WBC 12.2 x10^3/uL H x10^3/uL 13.2 x10^3/uL H x10^3/uL (4.8-10.8) (4.8-10.8) RBC 3.95 10^6/uL L 10^6/uL 3.85 10^6/uL L 10^6/uL (4.70-6.10) (4.70-6.10) Hgb 11.9 g/dL L g/dL 11.7 g/dL L g/dL (14.0-18.0) (14.0-18.0) Hct 35.3 % L % 33.6 % L % (42.0-52.0) (42.0-52.0) Neut # 9.0 10^3/uL H 10^3/uL 10.3 10^3/uL H 10^3/uL (1.5-6.6) (1.5-6.6) Iron # 1.1 10^3/uL H 10^3/uL 1.1 10^3/uL H 10^3/uL (0.0-1.0) (0.0-1.0) Calcium Albumin Albumin/Globulin Ratio 0.8 L (1.0-2.2) 04/06/17 05:19 WBC RBC Hgb Hct Neut # [place] # Calcium 8.4 mg/dL L mg/dL (8.5-10.3) Albumin 3.0 g/dL L g/dL (3.2-5.5) Albumin/Globulin Ratio 0.7 L (1.0-2.2) - EKG Results EKG Interpreted Independently: No - Diagnostic Imaging Results Diagnostic Imaging Results: positive: Prelim report reviewed Diagnostic Imaging Results Comments: Abdomen acute: fluid around nondialated stomach and small loops of bowel. will get CT with contrast - Additional Planning Condition/Complexity: Stable My Orders: My Active Orders 04/05/17 Lunch Clear Liquid Diet [DIET] 04/06/17 10:16 Abdomen/Pelvis W/ [CT] Stat Consult/Specialty: Internal Medicine (P), Surgery Plan Discussed with:: Patient, Spouse Time Spent: 31-60 minutes Subjective - Subjective Patient Reports: Resting Comfortably, Abdominal Pain, Pain Nursing Reports: No Complaints Objective Vital Signs: Vital Signs - 24 hr 04/05/17 04/06/17 04/06/17 21:44 00:43 09:19 Temperature 37.3 C 36.7 C 36.5 C Heart Rate [ 91 88 73 Brachial] Respiratory 20 16 18 Rate Blood Pressure 123/73 127/62 97/60 [Left Brachial artery] O2 Saturation 98 97 95 Oxygen O2 Source Room air I&O (Last 24 Hrs): Intake and Output Totals x24h 04/04/17 04/05/17 04/06/17 23:59 23:59 23:59 Intake Total 2129 3179 1008 Output Total 275 775 Balance 1854 2404 1008 General: Alert, Oriented x3 HEENT: PERRLA Neck: Supple Lymphatic: no adenopathy Neuro: Alert, CN 2-12 Grossly Intact, Oriented Times 3 Cardiovascular: Regular rate, Normal S1, Normal S2, No murmurs Respiratory: Chest non-tender, No respiratory distress, Breath sounds nml Abdomen: Soft, Other (tenderness to left lower quadrant) Rectal: Stool - Heme NEG Extremities: No clubbing, No cyanosis, No edema, Normal pulses, No tenderness/ swelling Skin: No rashes, No breakdown, No significant lesion - Results Results: Laboratory Results WBC 13.2 x10^3/uL (4.8-10.8) H 04/06/17 05:19 RBC 3.85 10^6/uL (4.70-6.10) L 04/06/17 05:19 Hgb 11.7 g/dL (14.0-18.0) L 04/06/17 05:19 Hct 33.6 % (42.0-52.0) L 04/06/17 05:19 MCV 87.4 fL (80.0-94.0) 04/06/17 05:19 MCH 30.4 pg (27.0-31.0) 04/06/17 05:19 MCHC 34.8 g/dL (32.0-36.0) 04/06/17 05:19 RDW 12.7 % (12.0-15.0) 04/06/17 05:19 Plt Count 187 10^3/uL (130-450) 04/06/17 05:19 MPV 9.0 fL (7.4-11.4) 04/06/17 05:19 Neut # 10.3 10^3/uL (1.5-6.6) H 04/06/17 05:19 Lymph # 1.8 10^3/uL (1.5-3.5) 04/06/17 05:19 Iron # 1.1 10^3/uL (0.0-1.0) H 04/06/17 05:19 Eos # 0.0 10^3/uL (0.0-0.7) 04/06/17 05:19 Baso # 0.0 10^3/uL (0.0-0.1) 04/06/17 05:19 Absolute Nucleated RBC 0.00 x10^3/uL 04/06/17 05:19 Nucleated RBCs 0.0 /100WBC 04/06/17 05:19 Sodium 136 mmol/L (135-145) 04/06/17 05:19 Potassium 3.7 mmol/L (3.5-5.0) 04/06/17 05:19 Chloride 105 mmol/L (101-111) 04/06/17 05:19 Carbon Dioxide 25 mmol/L (21-32) 04/06/17 05:19 Anion Gap 6.0 (6-13) 04/06/17 05:19 BUN 8 mg/dL (6-20) 04/06/17 05:19 Creatinine 0.8 mg/dL (0.6-1.2) 04/06/17 05:19 Estimated GFR (MDRD) 105 (>89) 04/06/17 05:19 Glucose 100 mg/dL (70-100) 04/06/17 05:19 Glycated Hemoglobin 6.1 % (4.6-6.2) 04/04/17 02:25 Estim Average Glucose 128 (70-100) H 04/04/17 02:25 Lactic Acid 0.5 mmol/L (0.5-2.2) 04/04/17 04:26 Calcium 8.4 mg/dL (8.5-10.3) L 04/06/17 05:19 Phosphorus 3.1 mg/dL (2.5-4.6) 04/04/17 07:50 Magnesium 2.0 mg/dL (1.7-2.8) 04/04/17 07:50 Total Bilirubin 0.8 mg/dL (0.2-1.0) 04/06/17 05:19 AST 14 IU/L (10-42) 04/06/17 05:19 ALT 16 IU/L (10-60) 04/06/17 05:19 Alkaline Phosphatase 48 IU/L (42-121) 04/06/17 05:19 C-Reactive Protein 15.3 mg/dL (0-1.0) H 04/04/17 07:50 Total Protein 7.1 g/dL (6.7-8.2) 04/06/17 05:19 Albumin 3.0 g/dL (3.2-5.5) L 04/06/17 05:19 Globulin 4.1 g/dL (2.1-4.2) 04/06/17 05:19 Albumin/Globulin Ratio 0.7 (1.0-2.2) L 04/06/17 05:19 Amylase 46 U/L (28-100) 04/05/17 05:18 Lipase 24 U/L (22-51) 04/05/17 05:18 Urine Color YELLOW 04/04/17 00:45 Urine Clarity CLEAR (CLEAR) 04/04/17 00:45 Urine pH 7.0 PH (5.0-7.5) 04/04/17 00:45 Ur Specific [place] 1.015 (1.002-1.030) 04/04/17 00:45 Urine Protein NEGATIVE mg/dL (NEGATIVE) 04/04/17 00:45 Urine Glucose (UA) NEGATIVE mg/dL (NEGATIVE) 04/04/17 00:45 Urine Ketones TRACE mg/dL (NEGATIVE) 04/04/17 00:45 Urine Occult Blood TRACE-INTA (NEGATIVE) 04/04/17 00:45 Urine Nitrite NEGATIVE (NEGATIVE) 04/04/17 00:45 Urine Bilirubin NEGATIVE (NEGATIVE) 04/04/17 00:45 Urine Urobilinogen 0.2 (NORMAL) E.U./dL (NORMAL) 04/04/17 00:45 Ur Leukocyte Esterase NEGATIVE (NEGATIVE) 04/04/17 00:45 Ur Microscopic Review NOT INDICATED 04/04/17 00:45 Urine Culture Comments NOT INDICATED 04/04/17 00:45
[2017-04-06] MEDS ORDERED: IOPAMIDOL-300 100 ML VIAL IVP ONE (12:32)
[2017-04-06] MEDS ORDERED: IOPAMIDOL-300 50 ML VIAL PO ONE (12:32)
[2017-04-06] MEDS: SACCHAROMYCES BOULARDII 250 MG CAPSULE PO SCH ×2 (13:55→18:38)
--- NOTE | 2017-04-06 14:24 | CT Preliminary Report ---
Exam: CT Abdomen/Pelvis W/ IMPRESSION: 1. Enlarging abscess and increasing amount of associated edema due perforated diverticulitis mid sig moid colon. Please note that the full differential would also include underlying neoplasm. 2. Splenomegaly. 3. Right renal lithiasis. RADIA The above critical findings were discussed with Dr. Dodson by Dr. Alma Corea at 14:23 hrs on . SITE ID: [id number]
--- NOTE | 2017-04-06 14:40 | CT Report ---
EXAM: CT ABDOMEN AND PELVIS EXAM DATE: 04/06/2017 12:37 p.m. CLINICAL HISTORY: Recent diagnosis of diverticulitis and abscess. Left lower quadrant pain. COMPARISONS: 04/04/2017. TECHNIQUE: Routine helical CT imaging was performed through the abdomen and pelvis. IV contrast: 100 mL Isovue 300. Enteric contrast: Yes. Reconstructions: Coronal and sagittal. In accordance with CT protocol optimization, one or more of the following dose reduction techniques w ere utilized for this exam: automated exposure control, adjustment of mA and/or KV based on patient s ize, or use of iterative reconstructive technique. FINDINGS: Lung Bases: Unremarkable. Liver: Fatty infiltration. Gallbladder/Bile Ducts: Unremarkable. Spleen: Stable mild splenomegaly. Pancreas: Normal. Adrenal Glands: Normal. Kidneys: 1 mm stone inferior right renal calyx. Several 2.3 cm and smaller renal cysts bilaterally. N o hydronephrosis. Peritoneal Cavity/Bowel: Normal appendix. Oral contrast extends through to the rectum. Interval increase in the caliber of the complex multi-loculated abscess extending off the superior as pect mid sigmoid colon with marked amount of edema interspersed between the loculated fluid collectio ns and surrounding it. Minute amount of free air seen along the superior and lateral margin of this inflammatory process, ax ial images 59 through 62. No more distant free air. Multiple small mesenteric lymph nodes surrounding this process. Large and small bowel of normal caliber. Multiple diverticula off the colon. Normal appendix. Surgical clips anterior aspect of left upper quadrant. Pelvic Organs: Remote left inguinal repair. No stones in the small caliber urinary bladder. Normal re ctum. Vasculature: No aneurysms or other significant abnormality. Bones: No significant abnormality. Other: None. IMPRESSION: 1. Enlarging abscess and increasing amount of associated edema due to perforated diverticulitis, mid sigmoid colon. Please note that the full differential would also include underlying perforated neopla sm. 2. Mild splenomegaly. 3. Right renal lithiasis. RADIA The above critical findings were discussed with Dr. Dodson by Dr. Alma Corea at 14:23 hrs on . Referring Provider Line: [phone] SITE ID: [id number]
[2017-04-06] MEDS ORDERED: LACTATED RINGERS 1,000 ML IV ONE ×3 (16:04→17:46)
--- NOTE | 2017-04-06 16:05 | PROVIDER PROGRESS NOTE ---
Assessment/Plan - Problem List (1) Abscess of sigmoid colon due to diverticulitis Assessment/Plan: 46 yo male with worsening perforated diverticulitis & abscess, now peritoneal OR today for Alex's procedure and washout of abdomen Consent obtained with [employer] #[id number] video language interpreter - Current Meds Current Meds: Current Medications Generic Name Dose Route Start Last Admin Trade Name Freq PRN Reason Stop Dose Admin Hydromorphone HCl 1 mg 04/04/17 04:41 04/06/17 08:07 Dilaudid Inj IVP 1 mg Q2HR PRN Administration Pain 8 to 10 Sodium Chloride 1,000 mls @ 125 mls/hr 04/04/17 05:00 04/06/17 11:51 Normal Saline 0.9% IV 125 mls/hr .Q8H NOEMI Administration Famotidine 50 mls @ 100 mls/hr 04/04/17 09:00 04/06/17 10:02 Pepcid 20 Mg/50 Ml IV 100 mls/hr DAILY NOEMI Administration Piperacillin Sod/Tazobactam 100 mls @ 200 mls/hr 04/04/17 12:00 04/06/17 11:50 Sod 4.5 gm/ Sodium Chloride IV 200 mls/hr Q6H NOEMI Administration Metronidazole 100 mls @ 100 mls/hr 04/04/17 08:00 04/06/17 13:55 Flagyl 500 Mg/100 Ml IV 100 mls/hr Q6H NOEMI Administration Saccharomyces Boulardii 500 mg 04/06/17 13:00 04/06/17 13:55 Florastor PO 500 mg BIDWM NOEMI Administration Sodium Chloride 10 ml 04/04/17 06:00 04/06/17 13:55 Normal Saline Flush 0.9% IVP Not Given Q8HR NOEMI - Lab Result Fish Bone Diagrams: 04/06/17 05:19 04/06/17 05:19 - Additional Planning My Orders: My Active Orders 04/06/17 15:53 PT WITH INR [COAG] Stat PTT [PARTIAL THROMBOPLASTIN TIME] [COAG] Stat RBC, LEUKOREDUCED Stat TYPE AND SCREEN Stat Subjective - Subjective Patient Reports: Abdominal Pain (Pt seen at bedisde, Worsenening abdominal pain despite abx. CT scan shows enlarging abscess.) Objective Vital Signs: Vital Signs - 24 hr 05/04/06/17 04/06/17 21:44 00:43 09:19 Temperature 37.3 C 36.7 C 36.8 C Heart Rate [ 91 88 71 Brachial] Respiratory 20 16 18 Rate Blood Pressure 123/73 127/62 103/63 [Left Brachial artery] O2 Saturation 98 97 97 Oxygen O2 Source Room air I&O (Last 24 Hrs): Intake and Output Totals x24h 04/04/17 04/05/17 04/06/17 23:59 23:59 23:59 Intake Total 2129 3179 2223 Output Total 275 775 Balance 1854 2404 2223 General: Alert, Oriented x3 Cardiovascular: Regular rate Respiratory: Breath sounds nml Abdomen: Normal bowel sounds (+BS, Mild distention, positive rebound. TTP diffusely.) - Results Results: Laboratory Results WBC 13.2 x10^3/uL (4.8-10.8) H 04/06/17 05:19 RBC 3.85 10^6/uL (4.70-6.10) L 04/06/17 05:19 Hgb 11.7 g/dL (14.0-18.0) L 04/06/17 05:19 Hct 33.6 % (42.0-52.0) L 04/06/17 05:19 MCV 87.4 fL (80.0-94.0) 04/06/17 05:19 MCH 30.4 pg (27.0-31.0) 04/06/17 05:19 MCHC 34.8 g/dL (32.0-36.0) 04/06/17 05:19 RDW 12.7 % (12.0-15.0) 04/06/17 05:19 Plt Count 187 10^3/uL (130-450) 04/06/17 05:19 MPV 9.0 fL (7.4-11.4) 04/06/17 05:19 Neut # 10.3 10^3/uL (1.5-6.6) H 04/06/17 05:19 Lymph # 1.8 10^3/uL (1.5-3.5) 04/06/17 05:19 Bertie # 1.1 10^3/uL (0.0-1.0) H 04/06/17 05:19 Eos # 0.0 10^3/uL (0.0-0.7) 04/06/17 05:19 Baso # 0.0 10^3/uL (0.0-0.1) 04/06/17 05:19 Absolute Nucleated RBC 0.00 x10^3/uL 04/06/17 05:19 Nucleated RBCs 0.0 /100WBC 04/06/17 05:19 Sodium 136 mmol/L (135-145) 04/06/17 05:19 Potassium 3.7 mmol/L (3.5-5.0) 04/06/17 05:19 Chloride 105 mmol/L (101-111) 04/06/17 05:19 Carbon Dioxide 25 mmol/L (21-32) 04/06/17 05:19 Anion Gap 6.0 (6-13) 04/06/17 05:19 BUN 8 mg/dL (6-20) 04/06/17 05:19 Creatinine 0.8 mg/dL (0.6-1.2) 04/06/17 05:19 Estimated GFR (MDRD) 105 (>89) 04/06/17 05:19 Glucose 100 mg/dL (70-100) 04/06/17 05:19 Glycated Hemoglobin 6.1 % (4.6-6.2) 04/04/17 02:25 Estim Average Glucose 128 (70-100) H 04/04/17 02:25 Lactic Acid 0.5 mmol/L (0.5-2.2) 04/04/17 04:26 Calcium 8.4 mg/dL (8.5-10.3) L 04/06/17 05:19 Phosphorus 3.1 mg/dL (2.5-4.6) 04/04/17 07:50 Magnesium 2.0 mg/dL (1.7-2.8) 04/04/17 07:50 Total Bilirubin 0.8 mg/dL (0.2-1.0) 04/06/17 05:19 AST 14 IU/L (10-42) 04/06/17 05:19 ALT 16 IU/L (10-60) 04/06/17 05:19 Alkaline Phosphatase 48 IU/L (42-121) 04/06/17 05:19 C-Reactive Protein 15.3 mg/dL (0-1.0) H 04/04/17 07:50 Total Protein 7.1 g/dL (6.7-8.2) 04/06/17 05:19 Albumin 3.0 g/dL (3.2-5.5) L 04/06/17 05:19 Globulin 4.1 g/dL (2.1-4.2) 04/06/17 05:19 Albumin/Globulin Ratio 0.7 (1.0-2.2) L 04/06/17 05:19 Amylase 46 U/L (28-100) 04/05/17 05:18 Lipase 24 U/L (22-51) 04/05/17 05:18 Urine Color YELLOW 04/04/17 00:45 Urine Clarity CLEAR (CLEAR) 04/04/17 00:45 Urine pH 7.0 PH (5.0-7.5) 04/04/17 00:45 Ur Specific [place] 1.015 (1.002-1.030) 04/04/17 00:45 Urine Protein NEGATIVE mg/dL (NEGATIVE) 04/04/17 00:45 Urine Glucose (UA) NEGATIVE mg/dL (NEGATIVE) 04/04/17 00:45 Urine Ketones TRACE mg/dL (NEGATIVE) 04/04/17 00:45 Urine Occult Blood TRACE-INTA (NEGATIVE) 04/04/17 00:45 Urine Nitrite NEGATIVE (NEGATIVE) 04/04/17 00:45 Urine Bilirubin NEGATIVE (NEGATIVE) 04/04/17 00:45 Urine Urobilinogen 0.2 (NORMAL) E.U./dL (NORMAL) 04/04/17 00:45 Ur Leukocyte Esterase NEGATIVE (NEGATIVE) 04/04/17 00:45 Ur Microscopic Review NOT INDICATED 04/04/17 00:45 Urine Culture Comments NOT INDICATED 04/04/17 00:45
[2017-04-06 16:10] LABS: INR 1.5 (0.8-1.2); PT - PROTHROMBIN TIME 17.1 secs (9.9-12.6)
[2017-04-06 16:17] LABS: PARTIAL THROMBOPLASTIN TIME 27.4 secs (24.9-33.3)
[2017-04-06] MEDS ORDERED: BUPIVACAINE 0.5%-EPI 1:200000 PF 30 ML VIAL SUBQ ONE ×2 (17:46→22:38)
[2017-04-06] MEDS ORDERED: ROCURONIUM 50 MG/5 ML VIAL IVP ONE (18:10)
[2017-04-06] MEDS ORDERED: MIDAZOLAM 2 MG/2 ML VIAL IVP ONE (18:10)
[2017-04-06] MEDS ORDERED: LIDOCAINE-MPF 2% 5 ML VIAL IM ONE (18:10)
[2017-04-06] MEDS ORDERED: ONDANSETRON 4 MG/2 ML VIAL IVP ONE (18:10)
[2017-04-06] MEDS ORDERED: DEXAMETHASONE 4 MG/ML VIAL IVP ONE (18:10)
[2017-04-06] MEDS ORDERED: HYDROmorphone 1 MG/ML SYRINGE IVP ONE (18:10)
[2017-04-06] MEDS ORDERED: ACETAMINOPHEN 1,000 MG/100 ML VIAL IV ONE (18:10)
[2017-04-06] MEDS ORDERED: SUCCINYLCHOLINE 200 MG/10 ML VIAL IVP ONE (18:10)
[2017-04-06] MEDS ORDERED: NEOSTIGMINE 1 MG/1 ML 10 ML MDV IVP ONE (18:10)
[2017-04-06] MEDS ORDERED: GLYCOPYRROLATE 1 MG/5 ML VIAL IVP ONE (18:10)
[2017-04-06] MEDS ORDERED: metroNIDAZOLE 500 PREMIX IV ONE (18:10)
[2017-04-06] MEDS ORDERED: PROPOFOL 200 MG/20 ML VIAL IVP ONE (18:10)
[2017-04-06] MEDS: LACTATED RINGERS 1,000 ML IV SCH (18:38)
[2017-04-06] MEDS ORDERED: PHENOL THROAT SPRAY 177 ML MM PRN (22:51)
[2017-04-06] MEDS ORDERED: SODIUM CHLORIDE FLUSH 0.9% 10 ML SYRINGE IVP PRN (22:51)
[2017-04-07] MEDS: PIPERACILLIN/TAZOBACTAM 4.5 GM in SODIUM CHLORIDE 0.9% MINIBAG 100 ML IV SCH ×5 (00:02→23:50)
[2017-04-07] MEDS: SODIUM CHLORIDE 0.9% 1,000 ML IV SCH ×3 (00:02→14:01)
[2017-04-07] MEDS: LACTATED RINGERS 1,000 ML IV SCH ×2 (00:05→05:44)
[2017-04-07] MEDS: ONDANSETRON 4 MG/2 ML VIAL IVP PRN (00:13)
--- NOTE | 2017-04-07 00:38 | OPERATIVE REPORT ---
Operative Report - General Admit Date: 04/04/17 Procedure Date: 04/06/17 Planned Procedure: Exploratory Laparotomy, Alex's procedure Pre-Op Diagnosis: perforated diverticulitis with abscess Post Op Diagnosis: same - Procedure Note Primary Surgeon: Eric Quiles DO Anesthesia Provider: Radha Sheppard MD Anesthesia Technique: General ET tube Pathology: Sigmoid colon Estimated Blood Loss (in cc): 150 Drain/Tube Type: positive: Silver Gomez round drain (x 2) Complications: None - Other Other Information/Narrative: Please see dictated report
[2017-04-07] MEDS: HYDROmorphone 1 MG/ML SYRINGE IVP PRN (01:12)
[2017-04-07] MEDS: metroNIDAZOLE 500 MG/100 ML 100 ML IV SCH ×4 (01:42→20:41)
[2017-04-07] MEDS: ACETAMINOPHEN 1,000 MG/100 ML 100 ML IV PRN ×2 (02:47→16:49)
[2017-04-07] MEDS: SODIUM CHLORIDE FLUSH 0.9% 10 ML SYRINGE IVP SCH ×4 (05:10→21:43)
[2017-04-07] MEDS: PANTOPRAZOLE 40 MG TABLET PO SCH (05:44)
[2017-04-07 05:53] LABS: BASOPHILS % (AUTO) 0.2 %; HCT - HEMATOCRIT 35.5 % (42.0-52.0); HGB - HEMOGLOBIN 12.3 g/dL (14.0-18.0); LYMPHOCYTES % (AUTO) 7.7 %; MEAN CORPUSCULAR HEMOGLOBIN 30.3 pg (27.0-31.0); MEAN CORPUSCULAR HGB CONC 34.8 g/dL (32.0-36.0); MEAN CORPUSCULAR VOLUME 87.1 fL (80.0-94.0); MEAN PLATELET VOLUME 8.9 fL (7.4-11.4); MONOCYTES # (AUTO) 0.7 10^3/uL (0.0-1.0); MONOCYTES % (AUTO) 5.6 %; NEUTROPHILS # (AUTO) 11.2 10^3/uL (1.5-6.6); NEUTROPHILS % (AUTO) 86.5 %; RED BLOOD COUNT 4.07 10^6/uL (4.70-6.10); UNCORRECTED WHITE BLOOD COUNT 12.9 x10^3/uL; WHITE BLOOD COUNT 12.9 x10^3/uL (4.8-10.8)
[2017-04-07 06:07] LABS: ALBUMIN/GLOBULIN RATIO 0.7 (1.0-2.2); BILIRUBIN,TOTAL 0.6 mg/dL (0.2-1.0); CALCIUM 8.3 mg/dL (8.5-10.3); CREATININE 0.7 mg/dL (0.6-1.2); MAGNESIUM 1.8 mg/dL (1.7-2.8); PHOSPHORUS 3.8 mg/dL (2.5-4.6); POTASSIUM 3.9 mmol/L (3.5-5.0); TOTAL PROTEIN 6.9 g/dL (6.7-8.2)
[2017-04-07] MEDS ORDERED: LACTATED RINGERS 1,000 ML IV ONE (07:10)
--- NOTE | 2017-04-07 07:14 | PROVIDER PROGRESS NOTE ---
Assessment/Plan - Problem List (1) Status post Alex's procedure Assessment/Plan: ongoing with diverticulitis with perforation of abscess. patient has colonoscopy bag and will require education prior to discharge. Will advance diet per surgery recommendations. pain controlled with ASSIGNMENT DESK ASSISTANT pump today. will transition to oral tomorrow. continue to encourage incentive spirometry and ambulation. IV antibiotics to continue and monitor CBC daily for elevation. monitor for fever. tylenol for fever (2) Abdominal pain, acute, left lower quadrant Assessment/Plan: ongoing. s/p kee procedure. continue with surgical recommendations and pain control. will advance diet per recommendation from surgery. continue with IV antibiotics. (3) Abscess of sigmoid colon due to diverticulitis Assessment/Plan: ongoing. IV antibiotics and pain control. monitor for fever and elevation in white count. CMP daily lab draw (4) Obesity (BMI 30-39.9) Assessment/Plan: ongoing. encourage ambulation and will need nutrition prenatal genetic counselor before discharge (5) Elevated C-reactive protein (CRP) Assessment/Plan: stable. probably due to diverticulitis and inflmmation in the colon. monitor for fever and white blood cell count - Current Meds Current Meds: Current Medications Generic Name Dose Route Start Last Admin Trade Name Freq PRN Reason Stop Dose Admin Sodium Chloride 1,000 mls @ 125 mls/hr 04/04/17 05:00 04/07/17 04:21 Normal Saline 0.9% IV Not Given .Q8H NOEMI Piperacillin Sod/Tazobactam 100 mls @ 200 mls/hr 04/04/17 12:00 04/07/17 05:43 Sod 4.5 gm/ Sodium Chloride IV 200 mls/hr Q6H NOEMI Administration Metronidazole 100 mls @ 100 mls/hr 04/04/17 08:00 04/07/17 01:42 Flagyl 500 Mg/100 Ml IV 100 mls/hr Q6H NOEMI Administration Acetaminophen 100 mls @ 400 mls/hr 04/06/17 22:51 04/07/17 02:47 Ofirmev IV 04/08/17 22:50 400 mls/hr Q6HR PRN Administration PAIN Ondansetron HCl 4 mg 04/06/17 22:51 04/07/17 00:13 Zofran Inj IVP 4 mg Q6H PRN Administration Nausea / Vomiting Pantoprazole Sodium 40 mg 04/07/17 07:00 04/07/17 05:44 Protonix PO Not Given QDAC NOEMI Saccharomyces Boulardii 500 mg 04/06/17 13:00 04/06/17 18:38 Florastor PO Not Given BIDWM NOEMI Sodium Chloride 10 ml 04/04/17 06:00 04/07/17 05:10 Normal Saline Flush 0.9% IVP Not Given Q8HR NOEMI Sodium Chloride 10 ml 04/07/17 06:00 04/07/17 05:11 Normal Saline Flush 0.9% IVP Not Given Q8HR NOEMI - Lab Result Lab results reviewed: Yes Fish Bone Diagrams: 04/07/17 05:32 04/07/17 05:32 - EKG Results EKG Interpreted Independently: No - Additional Planning Condition/Complexity: Improved My Orders: My Active Orders 04/06/17 13:00 Saccharomyces Boulardii [Florastor] 500 mg PO BIDWM 04/06/17 14:45 NPO [DIET] Consult/Specialty: Surgery Plan Discussed with:: Patient, Spouse Time Spent: 31-60 minutes Subjective - Subjective Patient Reports: Resting Comfortably, No Complaints, Abdominal Pain (only with movement and using ASSIGNMENT DESK ASSISTANT pump when needed) Nursing Reports: Pain (to incision region) Objective Vital Signs: Vital Signs - 24 hr 04/06/17 04/06/17 04/06/17 09:19 16:05 22:56 Temperature 36.8 C 37.1 C Heart Rate [ 71 99 Brachial] Respiratory 18 16 Rate Blood Pressure 103/63 128/79 [Left Brachial artery] O2 Saturation 97 98 99 04/06/17 04/06/17 04/06/17 23:00 23:09 23:15 Temperature Heart Rate [ Brachial] Respiratory Rate Blood Pressure [Left Brachial artery] O2 Saturation 96 96 98 04/06/17 04/06/17 04/06/17 23:22 23:25 23:29 Temperature Heart Rate [ Brachial] Respiratory Rate Blood Pressure [Left Brachial artery] O2 Saturation 98 98 98 04/06/17 04/07/17 04/07/17 23:35 00:05 01:05 Temperature 36.3 C L 36.2 C L 36.2 C L Heart Rate [ 91 92 89 Brachial] Respiratory 16 16 16 Rate Blood Pressure 152/80 H 142/78 H 159/87 H [Left Brachial artery] O2 Saturation 97 97 98 04/07/17 04/07/17 04/07/17 02:05 04:05 06:05 Temperature 36.4 C L 36.3 C L 36.1 C L Heart Rate [ 89 73 83 Brachial] Respiratory 16 16 16 Rate Blood Pressure 150/89 H 153/97 H 152/94 H [Left Brachial artery] O2 Saturation 97 99 96 Oxygen O2 Source Room air I&O (Last 24 Hrs): Intake and Output Totals x24h 04/05/17 04/06/17 04/07/17 23:59 23:59 23:59 Intake Total 3179 2223 1086 Output Total 775 Balance 2404 2223 1086 General: Alert, Oriented x3 HEENT: PERRLA Neck: No JVD, No thyromegaly Lymphatic: no adenopathy Neuro: Alert, CN 2-12 Grossly Intact, Oriented Times 3 Cardiovascular: Regular rate, Normal S1, Normal S2, No murmurs Respiratory: Chest non-tender, No respiratory distress, Breath sounds nml Abdomen: Soft, Other (tenderness to incision site with colonoscopy noted with serous drainage no stool noted) Rectal: Non-Tender Extremities: No clubbing, No cyanosis, No edema Skin: No rashes, No breakdown, No significant lesion - Results Results: Laboratory Results WBC 12.9 x10^3/uL (4.8-10.8) H 04/07/17 05:32 RBC 4.07 10^6/uL (4.70-6.10) L 04/07/17 05:32 Hgb 12.3 g/dL (14.0-18.0) L 04/07/17 05:32 Hct 35.5 % (42.0-52.0) L 04/07/17 05:32 MCV 87.1 fL (80.0-94.0) 04/07/17 05:32 MCH 30.3 pg (27.0-31.0) 04/07/17 05:32 MCHC 34.8 g/dL (32.0-36.0) 04/07/17 05:32 RDW 13.0 % (12.0-15.0) 04/07/17 05:32 Plt Count 207 10^3/uL (130-450) 04/07/17 05:32 MPV 8.9 fL (7.4-11.4) 04/07/17 05:32 Neut # 11.2 10^3/uL (1.5-6.6) H 04/07/17 05:32 Lymph # 1.0 10^3/uL (1.5-3.5) L 04/07/17 05:32 [place] # 0.7 10^3/uL (0.0-1.0) 04/07/17 05:32 Eos # 0.0 10^3/uL (0.0-0.7) 04/07/17 05:32 Baso # 0.0 10^3/uL (0.0-0.1) 04/07/17 05:32 Absolute Nucleated RBC 0.00 x10^3/uL 04/07/17 05:32 Nucleated RBCs 0.0 /100WBC 04/07/17 05:32 PT 17.1 secs (9.9-12.6) H 04/06/17 15:53 INR 1.5 (0.8-1.2) H 04/06/17 15:53 APTT 27.4 secs (24.9-33.3) 04/06/17 15:53 Sodium 135 mmol/L (135-145) 04/07/17 05:32 Potassium 3.9 mmol/L (3.5-5.0) 04/07/17 05:32 Chloride 104 mmol/L (101-111) 04/07/17 05:32 Carbon Dioxide 24 mmol/L (21-32) 04/07/17 05:32 Anion Gap 7.0 (6-13) 04/07/17 05:32 BUN 7 mg/dL (6-20) 04/07/17 05:32 Creatinine 0.7 mg/dL (0.6-1.2) 04/07/17 05:32 Estimated GFR (MDRD) 123 (>89) 04/07/17 05:32 Glucose 154 mg/dL (70-100) H 04/07/17 05:32 Glycated Hemoglobin 6.1 % (4.6-6.2) 04/04/17 02:25 Estim Average Glucose 128 (70-100) H 04/04/17 02:25 Lactic Acid 0.5 mmol/L (0.5-2.2) 04/04/17 04:26 Calcium 8.3 mg/dL (8.5-10.3) L 04/07/17 05:32 Phosphorus 3.8 mg/dL (2.5-4.6) 04/07/17 05:32 Magnesium 1.8 mg/dL (1.7-2.8) 04/07/17 05:32 Total Bilirubin 0.6 mg/dL (0.2-1.0) 04/07/17 05:32 AST 23 IU/L (10-42) 04/07/17 05:32 ALT 18 IU/L (10-60) 04/07/17 05:32 Alkaline Phosphatase 46 IU/L (42-121) 04/07/17 05:32 C-Reactive Protein 15.3 mg/dL (0-1.0) H 04/04/17 07:50 Total Protein 6.9 g/dL (6.7-8.2) 04/07/17 05:32 Albumin 2.8 g/dL (3.2-5.5) L 04/07/17 05:32 Globulin 4.1 g/dL (2.1-4.2) 04/07/17 05:32 Albumin/Globulin Ratio 0.7 (1.0-2.2) L 04/07/17 05:32 Amylase 46 U/L (28-100) 04/05/17 05:18 Lipase 24 U/L (22-51) 04/05/17 05:18 Urine Color YELLOW 04/04/17 00:45 Urine Clarity CLEAR (CLEAR) 04/04/17 00:45 Urine pH 7.0 PH (5.0-7.5) 04/04/17 00:45 Ur Specific [place] 1.015 (1.002-1.030) 04/04/17 00:45 Urine Protein NEGATIVE mg/dL (NEGATIVE) 04/04/17 00:45 Urine Glucose (UA) NEGATIVE mg/dL (NEGATIVE) 04/04/17 00:45 Urine Ketones TRACE mg/dL (NEGATIVE) 04/04/17 00:45 Urine Occult Blood TRACE-INTA (NEGATIVE) 04/04/17 00:45 Urine Nitrite NEGATIVE (NEGATIVE) 04/04/17 00:45 Urine Bilirubin NEGATIVE (NEGATIVE) 04/04/17 00:45 Urine Urobilinogen 0.2 (NORMAL) E.U./dL (NORMAL) 04/04/17 00:45 Ur Leukocyte Esterase NEGATIVE (NEGATIVE) 04/04/17 00:45 Ur Microscopic Review NOT INDICATED 04/04/17 00:45 Urine Culture Comments NOT INDICATED 04/04/17 00:45 Blood Type B POSITIVE 04/06/17 15:53 Blood Type Recheck B POSITIVE 04/06/17 05:19 Antibody Screen NEGATIVE 04/06/17 15:53 Crossmatch IS Only See Detail 04/06/17 15:53 - Procedures Procedures: patient will need another 24-48 hours and will need to advance his diet as tolerated. he is high risk for worsening comorbid conditions related to hsi diverticulitis and elevated white blood count
[2017-04-07] MEDS: MORPHINE PCA 50 MG IV PRN (08:15)
[2017-04-07] MEDS: D5.45NS W/20 MEQ KCL 1,000 ML IV SCH ×2 (09:10→20:40)
[2017-04-07] MEDS: SACCHAROMYCES BOULARDII 250 MG CAPSULE PO SCH ×2 (09:11→18:12)
--- NOTE | 2017-04-07 13:41 | PROVIDER PROGRESS NOTE ---
Assessment/Plan - Problem List (1) Abscess of sigmoid colon due to diverticulitis Assessment/Plan: 46 yo male with perforated diverticulitis s/p Alex's procedure. 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 d/c in AM Surgery will change dressing in am GI prophylaxis with Protonix DVT prophylaxis with SCD's/ teds/ HSQ Advance diet slowly likely to develop ileus. PT and Ostomy teams to work with patient. Work note given to patient for return to work 05/04/17 - Current Meds Current Meds: Current Medications Generic Name Dose Route Start Last Admin Trade Name Freq PRN Reason Stop Dose Admin Sodium Chloride 1,000 mls @ 125 mls/hr 04/04/17 05:00 04/07/17 04:21 Normal Saline 0.9% IV Not Given .Q8H NOEMI Piperacillin Sod/Tazobactam 100 mls @ 200 mls/hr 04/04/17 12:00 04/07/17 12:08 Sod 4.5 gm/ Sodium Chloride IV 200 mls/hr Q6H NOEMI Administration Metronidazole 100 mls @ 100 mls/hr 04/04/17 08:00 04/07/17 09:11 Flagyl 500 Mg/100 Ml IV 100 mls/hr Q6H NOEMI Administration Acetaminophen 100 mls @ 400 mls/hr 04/06/17 22:51 04/07/17 02:47 Ofirmev IV 04/08/17 22:50 400 mls/hr Q6HR PRN Administration PAIN Potassium Chloride/Dextrose/Sod Cl 1,000 mls @ 125 mls/hr 04/07/17 08:00 09:10 D5.45ns W/20 Meq Kcl IV 125 mls/hr .Q8H NOEMI Administration Morphine Sulfate/Sodium Chloride 50 mg 04/07/17 07:07 04/07/17 08:15 Morphine Fancy Wire Drawer (Use Fancy Wire Drawer Order Set) IV 50 mg TRIMMING MACHINE OPERATOR PRN Administration PAIN Protocol Ondansetron HCl 4 mg 04/06/17 22:51 04/07/17 00:13 Zofran Inj IVP 4 mg Q6H PRN Administration Nausea / Vomiting Pantoprazole Sodium 40 mg 04/07/17 07:00 04/07/17 05:44 Protonix PO Not Given QDAC NOEMI Saccharomyces Boulardii 500 mg 04/06/17 13:00 04/07/17 09:11 Florastor PO 500 mg BIDWM NOEMI Administration Sodium Chloride 10 ml 04/07/17 06:00 04/07/17 05:11 Normal Saline Flush 0.9% IVP Not Given Q8HR NOEMI - Lab Result Fish Bone Diagrams: 04/07/17 05:32 04/07/17 05:32 - Additional Planning My Orders: My Active Orders 04/06/17 15:53 RBC, LEUKOREDUCED Stat TYPE AND SCREEN Stat 04/06/17 18:23 AFB CUL & SMEAR #3 (WSDOHL) Stat CUL, WOUND AER/GARRY (QUEST) [REFLAB] Stat 04/06/17 22:51 Activity Orders [RC] QSHIFT Drain Care [RC] QSHIFT IO [RC] IOSHIFT IV Line/Site Care [RC] QSHIFT Incentive Spirometry - RT [RC] TID Initiate Gen Surg Post Op Care Protocols [OTHERS] Routine Notify Provider - VS Parameter [RC] .notify Oxygen Therapy [RC] Routine Turn, Cough and Deep Breathe [RC] Q1HR Vital Signs [RC] Q30MX2,Q2HX2,Q4HX2,QSHIFT Acetaminophen 1,000 mg/100 ml [Ofirmev] 100 ml IV Q6HR Ondansetron Inj [Zofran Inj] 4 mg IVP Q6H PRN Phenol [Chloraseptic] 1 sprays MM Q2HR PRN Code Status [OTHERS] Routine Condition of Patient [OTHERS] Routine DVT Prophylaxis [OTHERS] Routine 04/06/17 22:52 Initiate Line Care Protocol [RC] .protocol Initiate Personal Care Protoco [RC] .protocol 04/06/17 22:55 ANIKA Davide and SCDs [RC] QSHIFT 04/06/17 23:00 Abdominal Binder [RC] DAILY 04/07/17 06:00 Sodium Chloride Flush 0.9% [Normal Saline Flush 0.9%] 10 ml IVP Q8HR 04/07/17 07:00 Pantoprazole [Protonix] 40 mg PO QDAC 04/07/17 07:07 Morphine TRIMMING MACHINE OPERATOR [Morphine TRIMMING MACHINE OPERATOR (Use TRIMMING MACHINE OPERATOR Order Set)] 50 mg IV TRIMMING MACHINE OPERATOR PRN 04/07/17 07:08 Bowel - Constipation Care [RC] ONCE 04/07/17 08:00 D5.45ns W/20 Meq KCl 1,000 ml IV 125 mls/hr Subjective - Subjective Patient Reports: Resting Comfortably (Pt seen at bedside. States pain controlled. Jaeger with good urine output. CAROLYNN drains with minimal serosanguenous drainage. Using IS. No issues overnight.) Nursing Reports: No Complaints Objective Vital Signs: Vital Signs - 24 hr 04/06/17 04/06/17 04/06/17 16:05 22:56 23:00 Temperature 37.1 C Heart Rate [ 99 Brachial] Respiratory 16 Rate Blood Pressure 128/79 [Left Brachial artery] O2 Saturation 98 99 96 04/06/17 04/06/17 04/06/17 23:09 23:15 23:22 Temperature Heart Rate [ Brachial] Respiratory Rate Blood Pressure [Left Brachial artery] O2 Saturation 96 98 98 04/06/17 04/06/17 04/06/17 23:25 23:29 23:35 Temperature 36.3 C L Heart Rate [ 91 Brachial] Respiratory 16 Rate Blood Pressure 152/80 H [Left Brachial artery] O2 Saturation 98 98 97 04/07/17 04/07/17 04/07/17 00:05 01:05 02:05 Temperature 36.2 C L 36.2 C L 36.4 C L Heart Rate [ 92 89 89 Brachial] Respiratory 16 16 16 Rate Blood Pressure 142/78 H 159/87 H 150/89 H [Left Brachial artery] O2 Saturation 97 98 97 04/07/17 04/07/17 04/07/17 04:05 06:05 08:21 Temperature 36.3 C L 36.1 C L 36.8 C Heart Rate [ 73 83 79 Brachial] Respiratory 16 16 18 Rate Blood Pressure 153/97 H 152/94 H 137/87 H [Left Brachial artery] O2 Saturation 99 96 98 04/07/17 04/07/17 10:25 11:21 Temperature 36.1 C L Heart Rate [ 86 Brachial] Respiratory 17 18 Rate Blood Pressure 138/87 H [Left Brachial artery] O2 Saturation 98 Oxygen O2 Source Room air I&O (Last 24 Hrs): Intake and Output Totals x24h 04/05/17 04/06/17 04/07/17 23:59 23:59 23:59 Intake Total 3179 2223 2598 Output Total 775 1080 Balance 2404 2223 1518 General: Alert, Oriented x3 Cardiovascular: Regular rate Respiratory: Breath sounds nml Abdomen: Soft, Other (+BS, Hypoactive. TTP at surgical site. Surgical site dressing C/D/I. Ostomy stoma viable. No stool. No air.) - Results Results: Laboratory Results WBC 12.9 x10^3/uL (4.8-10.8) H 04/07/17 05:32 RBC 4.07 10^6/uL (4.70-6.10) L 04/07/17 05:32 Hgb 12.3 g/dL (14.0-18.0) L 04/07/17 05:32 Hct 35.5 % (42.0-52.0) L 04/07/17 05:32 MCV 87.1 fL (80.0-94.0) 04/07/17 05:32 MCH 30.3 pg (27.0-31.0) 04/07/17 05:32 MCHC 34.8 g/dL (32.0-36.0) 04/07/17 05:32 RDW 13.0 % (12.0-15.0) 04/07/17 05:32 Plt Count 207 10^3/uL (130-450) 04/07/17 05:32 MPV 8.9 fL (7.4-11.4) 04/07/17 05:32 Neut # 11.2 10^3/uL (1.5-6.6) H 04/07/17 05:32 Lymph # 1.0 10^3/uL (1.5-3.5) L 04/07/17 05:32 [place] # 0.7 10^3/uL (0.0-1.0) 04/07/17 05:32 Eos # 0.0 10^3/uL (0.0-0.7) 04/07/17 05:32 Baso # 0.0 10^3/uL (0.0-0.1) 04/07/17 05:32 Absolute Nucleated RBC 0.00 x10^3/uL 04/07/17 05:32 Nucleated RBCs 0.0 /100WBC 04/07/17 05:32 PT 17.1 secs (9.9-12.6) H 04/06/17 15:53 INR 1.5 (0.8-1.2) H 04/06/17 15:53 APTT 27.4 secs (24.9-33.3) 04/06/17 15:53 Sodium 135 mmol/L (135-145) 04/07/17 05:32 Potassium 3.9 mmol/L (3.5-5.0) 04/07/17 05:32 Chloride 104 mmol/L (101-111) 04/07/17 05:32 Carbon Dioxide 24 mmol/L (21-32) 04/07/17 05:32 Anion Gap 7.0 (6-13) 04/07/17 05:32 BUN 7 mg/dL (6-20) 04/07/17 05:32 Creatinine 0.7 mg/dL (0.6-1.2) 04/07/17 05:32 Estimated GFR (MDRD) 123 (>89) 04/07/17 05:32 Glucose 154 mg/dL (70-100) H 04/07/17 05:32 Glycated Hemoglobin 6.1 % (4.6-6.2) 04/04/17 02:25 Estim Average Glucose 128 (70-100) H 04/04/17 02:25 Lactic Acid 0.5 mmol/L (0.5-2.2) 04/04/17 04:26 Calcium 8.3 mg/dL (8.5-10.3) L 04/07/17 05:32 Phosphorus 3.8 mg/dL (2.5-4.6) 04/07/17 05:32 Magnesium 1.8 mg/dL (1.7-2.8) 04/07/17 05:32 Total Bilirubin 0.6 mg/dL (0.2-1.0) 04/07/17 05:32 AST 23 IU/L (10-42) 04/07/17 05:32 ALT 18 IU/L (10-60) 04/07/17 05:32 Alkaline Phosphatase 46 IU/L (42-121) 04/07/17 05:32 C-Reactive Protein 15.3 mg/dL (0-1.0) H 04/04/17 07:50 Total Protein 6.9 g/dL (6.7-8.2) 04/07/17 05:32 Albumin 2.8 g/dL (3.2-5.5) L 04/07/17 05:32 Globulin 4.1 g/dL (2.1-4.2) 04/07/17 05:32 Albumin/Globulin Ratio 0.7 (1.0-2.2) L 04/07/17 05:32 Amylase 46 U/L (28-100) 04/05/17 05:18 Lipase 24 U/L (22-51) 04/05/17 05:18 Urine Color YELLOW 04/04/17 00:45 Urine Clarity CLEAR (CLEAR) 04/04/17 00:45 Urine pH 7.0 PH (5.0-7.5) 04/04/17 00:45 Ur Specific [place] 1.015 (1.002-1.030) 04/04/17 00:45 Urine Protein NEGATIVE mg/dL (NEGATIVE) 04/04/17 00:45 Urine Glucose (UA) NEGATIVE mg/dL (NEGATIVE) 04/04/17 00:45 Urine Ketones TRACE mg/dL (NEGATIVE) 04/04/17 00:45 Urine Occult Blood TRACE-INTA (NEGATIVE) 04/04/17 00:45 Urine Nitrite NEGATIVE (NEGATIVE) 04/04/17 00:45 Urine Bilirubin NEGATIVE (NEGATIVE) 04/04/17 00:45 Urine Urobilinogen 0.2 (NORMAL) E.U./dL (NORMAL) 04/04/17 00:45 Ur Leukocyte Esterase NEGATIVE (NEGATIVE) 04/04/17 00:45 Ur Microscopic Review NOT INDICATED 04/04/17 00:45 Urine Culture Comments NOT INDICATED 04/04/17 00:45 Blood Type B POSITIVE 04/06/17 15:53 Blood Type Recheck B POSITIVE 04/06/17 05:19 Antibody Screen NEGATIVE 04/06/17 15:53 Crossmatch IS Only See Detail 04/06/17 15:53
[2017-04-07] MEDS: HEPARIN 5,000 UNIT/ML VIAL SUBQ SCH (21:45)
[2017-04-08] MEDS: D5.45NS W/20 MEQ KCL 1,000 ML IV SCH ×3 (01:00→17:20)
[2017-04-08] MEDS: metroNIDAZOLE 500 MG/100 ML 100 ML IV SCH ×4 (02:03→20:50)
--- NOTE | 2017-04-08 03:06 | OPERATIVE REPORT ---
DATE OF SURGERY: 04/06/2017 00:00:00 PREOPERATIVE DIAGNOSIS: Perforated diverticulitis with abscess. POSTOPERATIVE DIAGNOSIS: Perforated diverticulitis with abscess. NAME OF PROCEDURE: Exploratory laparotomy, left colon resection with colostomy ( Alex procedure). SURGEON: Los Quiles MD. TOOLS ADMINISTRATOR: Mena Aguirre. ANESTHESIA: General by Radha Sheppard MD. FINDINGS: Perforated sigmoid diverticulitis with rupture and abscess. SPECIMEN: Sigmoid colon. COMPLICATIONS: None. ESTIMATED BLOOD LOSS: 150 mL. CRYSTALLOID GIVEN: 2150 mL LR. INDICATION FOR PROCEDURE: The patient is a 46-year-old male with history of diverticulitis who was initially admitted on 04/04/2017 with sigmoid diverticulitis with a suspected 3.2 x 3.7 cm diverticular sigmoid abscess, which was treated conservatively with IV antibiotics. Subsequently, he continued to have leukocytosis around 13,000 and low-grade fevers and worsening abdominal pain. A repeat CT scan showed increase in size of the abscess, now multi-loculated with surrounding free air. The patient's exam was now peritoneal , so surgical intervention was deemed necessary. Using a turner machine system, the disease process and surgical options were discussed with the patient , as well as the risks of surgery including, but not limited to infection, bleeding, perforation, other organ injury, possible ostomy placement, and need to wear a colostomy bag, scarring, abscess formation, recurrence, risk of and possible need if end colostomy was made for future surgery to reconnect the colon. The patient and the were agreeable to proceed with the surgery and signed preoperatively informed consent. All questions were answered. DESCRIPTION OF PROCEDURE: The patient was taken to the operative suite and placed in the supine position under general anesthesia per Anesthesia Department and a Jaeger catheter was placed preoperatively. He had previously received Zosyn and Flagyl. The abdomen was prepped and draped in the usual sterile fashion. A time-out was performed identifying the correct patient, procedure site, position. A midline vertical laparotomy incision was made from sub-xiphoid to just above the pubis with a #10 blade scalpel and subcutaneous tissue was with electrocautery down to the anterior abdominal fascia. Once divided, the anterior abdominal cavity was accessed. The bowel was then protected as the rest of the abdominal wall was opened in the midline. An NG tube was placed and confirmed in the stomach. A mass in the sigmoid colon approximately 10 cm in diameter was palpated with localized purulence noted. Cultures were taken and sent to the lab. The small bowel was inspected and retracted to the right using a moist towel and self-retraining retractor. Using blunt, electrocautery, and LigaSure, the colon was freed from its peritoneal attachments along the line of Toldt proximally below the splenic flexure and distally to the pelvic inlet. Points of transection were selected proximally and distally above the rectosigmoid junction, where uninvolved healthy-appearing colon was present. The colon was divided with a linear stapler proximally. The peritoneum overlying the mesentery was scored with electrocautery and the sigmoidal artery was identified and suture ligated with 2-0 silk. LigaSure was then used to divide the mesentery close to the sigmoid colon superiorly to inferiorly to free the proximal specimen. Blunt dissection was used distally to free the specimen from the adhesions and a TA stapler was used for distal transection. A Prolene suture was placed for later identification of the rectal stump. The specimen was removed and sent to pathology. The abdominal cavity was then copiously irrigated with warm saline. The proximal colon reached easily to the proposed colostomy site without tension. A disk of skin was removed from the colostomy site in the left lower quadrant. The incision was deepened through all layers of the abdominal wall and dilated to allow 3 fingers. The colon was passed out through the ostomy site without tension or torsion. It was tacked to the peritoneum with several interrupted 3-0 Vicryl sutures. Two round CAROLYNN drains were placed in the pelvis through separate stab wounds and secured in place with 3-0 nylon. Next, the abdominal wall fascial layer was closed using 2 running looped PDS sutures meeting in the middle and interrupted 0 Vicryl sutures with good approximation of both the abdominal fascia. Additional sterile saline was used to irrigate the subcutaneous fat and then the skin was closed with widely spaced sequential sterile edgardo and 1-inch iodoform packing. Sterile dressing was then applied and the skin was cleansed. The area was then protected, and the colostomy was matured with multiple interrupted sutures of 3-0 Vicryl. An ostomy bag was applied. The patient was awakened from anesthesia without difficulty and extubated in the operating room. He tolerated the procedure well and he was transferred to the PACU in stable condition. All lap pad and instrument counts were correct. JOB #: [id number] EXT JOB #:[id number] ALBINA
[2017-04-08] MEDS: ACETAMINOPHEN 1,000 MG/100 ML 100 ML IV PRN (05:16)
[2017-04-08 05:32] LABS: BASOPHILS # (AUTO) 0.1 10^3/uL (0.0-0.1); BASOPHILS % (AUTO) 0.6 %; EOSINOPHILS # (AUTO) 0.1 10^3/uL (0.0-0.7); EOSINOPHILS % (AUTO) 0.5 %; HCT - HEMATOCRIT 34.4 % (42.0-52.0); HGB - HEMOGLOBIN 11.9 g/dL (14.0-18.0); LYMPHOCYTES # (AUTO) 1.9 10^3/uL (1.5-3.5); MEAN CORPUSCULAR HEMOGLOBIN 30.6 pg (27.0-31.0); MEAN CORPUSCULAR HGB CONC 34.7 g/dL (32.0-36.0); MEAN CORPUSCULAR VOLUME 88.1 fL (80.0-94.0); MEAN PLATELET VOLUME 8.7 fL (7.4-11.4); MONOCYTES # (AUTO) 0.8 10^3/uL (0.0-1.0); MONOCYTES % (AUTO) 7.8 %; NEUTROPHILS # (AUTO) 7.2 10^3/uL (1.5-6.6); NEUTROPHILS % (AUTO) 72.1 %; RED CELL DISTRIBUTION WIDTH 12.9 % (12.0-15.0); UNCORRECTED WHITE BLOOD COUNT 10.1 x10^3/uL; WHITE BLOOD COUNT 10.1 x10^3/uL (4.8-10.8)
[2017-04-08 05:45] LABS: ALBUMIN/GLOBULIN RATIO 0.7 (1.0-2.2); BILIRUBIN,TOTAL 0.4 mg/dL (0.2-1.0); CREATININE 0.6 mg/dL (0.6-1.2); POTASSIUM 3.7 mmol/L (3.5-5.0); TOTAL PROTEIN 6.4 g/dL (6.7-8.2)
[2017-04-08] MEDS: PIPERACILLIN/TAZOBACTAM 4.5 GM in SODIUM CHLORIDE 0.9% MINIBAG 100 ML IV SCH ×3 (05:59→18:24)
[2017-04-08] MEDS: SODIUM CHLORIDE FLUSH 0.9% 10 ML SYRINGE IVP SCH ×3 (06:30→22:10)
[2017-04-08] MEDS: PANTOPRAZOLE 40 MG TABLET PO SCH (06:34)
--- NOTE | 2017-04-08 07:33 | PROVIDER PROGRESS NOTE ---
Assessment/Plan - Problem List (1) Acute hyponatremia Assessment/Plan: acute. probably due to fluid loss from surgery. will replace with IVF LR at 100ml/hr. continue to monitor labs and advance diet as tolerated. continue with checking other electrolytes as well. (2) Status post Alex's procedure Assessment/Plan: improving. patient is up and ambulating. White blood cell count is decreasing. continue IV antibiotics another day then transition to oral. continue with pain medicine with oral and off METAL SPRAYER PRODUCTION. colostomy teaching today. (3) Colostomy care Assessment/Plan: acute. MAC to see patient to provide care regarding colostomy bag when going home (4) Abdominal pain, acute, left lower quadrant Assessment/Plan: improving. pain managment with oral tramadol 50mg PO (5) Abscess of sigmoid colon due to diverticulitis Assessment/Plan: improving. white lood cell count is decreased. continue with IV antibiotics and will transition to oral hopefully tomorrow. patient is still on pain medication with METAL SPRAYER PRODUCTION and will taper off to oral once confirmed with surgery. colostomy teaching ordered (6) Obesity (BMI 30-39.9) Assessment/Plan: ongong. continue to advance diet with low carb and low calorie diet. encourage ambulation (7) Elevated C-reactive protein (CRP) Assessment/Plan: improving. inflammation improving and continue with antibiotic therapy - Current Meds Current Meds: Current Medications Generic Name Dose Route Start Last Admin Trade Name Freq PRN Reason Stop Dose Admin Heparin Sodium (Porcine) 5,000 unit 04/07/17 21:00 04/07/17 21:45 SUBQ 5,000 unit BID NOEMI Administration Piperacillin Sod/Tazobactam 100 mls @ 200 mls/hr 04/04/17 12:00 04/08/17 05:59 Sod 4.5 gm/ Sodium Chloride IV 200 mls/hr Q6H NOEMI Administration Metronidazole 100 mls @ 100 mls/hr 04/04/17 08:00 04/08/17 02:03 Flagyl 500 Mg/100 Ml IV 100 mls/hr Q6H NOEMI Administration Acetaminophen 100 mls @ 400 mls/hr 04/06/17 22:51 04/08/17 05:16 Ofirmev IV 04/08/17 22:50 400 mls/hr Q6HR PRN Administration PAIN Potassium Chloride/Dextrose/Sod Cl 1,000 mls @ 125 mls/hr 04/07/17 08:00 06:34 D5.45ns W/20 Meq Kcl IV 125 mls/hr .Q8H NOEMI Administration Morphine Sulfate/Sodium Chloride 50 mg 04/07/17 07:07 04/07/17 08:15 Morphine Caustic Pump Operator (Use Caustic Pump Operator Order Set) IV 50 mg METAL SPRAYER PRODUCTION PRN Administration PAIN Protocol Ondansetron HCl 4 mg 04/06/17 22:51 04/07/17 00:13 Zofran Inj IVP 4 mg Q6H PRN Administration Nausea / Vomiting Pantoprazole Sodium 40 mg 04/07/17 07:00 04/08/17 06:34 Protonix PO 40 mg QDAC NOEMI Administration Saccharomyces Boulardii 500 mg 04/06/17 13:00 04/07/17 18:12 Florastor PO 500 mg BIDWM NOEMI Administration Sodium Chloride 10 ml 04/07/17 06:00 04/08/17 06:30 Normal Saline Flush 0.9% IVP Not Given Q8HR NOEMI - Lab Result Lab results reviewed: Yes Fish Bone Diagrams: 04/08/17 05:04 04/08/17 05:04 - EKG Results EKG Interpreted Independently: No - Additional Planning Condition/Complexity: Improved My Orders: My Active Orders 04/07/17 13:03 Ostomy Post-Op - MAC [RC] .once 04/07/17 Dinner Clear Liquid Diet [DIET] Consult/Specialty: OT, PT, Surgery Plan Discussed with:: Patient, Spouse, Case Management Time Spent: 31-60 minutes Additional Planning Notes: Patient has improved and will be able to go home probably in 24-48 hours. Patient is high risk since he is still requiring IV medications with high risk for toxicity and monitoring. Subjective - Subjective Patient Reports: Resting Comfortably, No Complaints (mild pain with movement around colostomy area.) Nursing Reports: No Complaints (no chest pain or shortness of breath. tolerating diet and ambulating) Objective Vital Signs: Vital Signs - 24 hr 04/07/17 04/07/17 04/07/17 08:21 10:25 11:21 Temperature 36.8 C 36.1 C L Heart Rate [ 79 86 Brachial] Respiratory 18 17 18 Rate Blood Pressure 137/87 H 138/87 H [Left Brachial artery] O2 Saturation 98 98 04/07/17 04/07/17 04/07/17 14:00 14:25 16:10 Temperature 36.8 C 38.2 C H Heart Rate [ 86 92 Brachial] Respiratory 16 16 18 Rate Blood Pressure 130/85 H 133/81 H [Left Brachial artery] O2 Saturation 97 97 04/07/17 04/07/17 04/07/17 17:46 18:00 20:25 Temperature 37.4 C 36.5 C Heart Rate [ 80 Brachial] Respiratory 16 18 Rate Blood Pressure 118/70 [Left Brachial artery] O2 Saturation 97 04/07/17 04/08/17 04/08/17 22:00 00:01 01:26 Temperature 36.9 C Heart Rate [ 88 Brachial] Respiratory 16 20 16 Rate Blood Pressure 131/81 H [Left Brachial artery] O2 Saturation 97 04/08/17 04/08/17 04/08/17 05:13 06:39 06:40 Temperature 38.3 C H 37.0 C Heart Rate [ 88 Brachial] Respiratory 18 16 Rate Blood Pressure 135/83 H [Left Brachial artery] O2 Saturation 96 Oxygen O2 Source Room air I&O (Last 24 Hrs): Intake and Output Totals x24h 04/06/17 04/07/17 04/08/17 23:59 23:59 23:59 Intake Total 2223 3983 1212 Output Total 3285 1840 Balance 2223 698 -628 General: Alert, Oriented x3, Cooperative, No acute distress HEENT: PERRLA Neck: Supple, No JVD Lymphatic: no adenopathy Neuro: Alert, CN 2-12 Grossly Intact Cardiovascular: Regular rate, Normal S1, Normal S2, No murmurs Respiratory: Chest non-tender, No respiratory distress, Breath sounds nml Abdomen: Soft, No masses, Other (tenderness with palpation at colostomy site) Genitourinary: Normal Inspection Extremities: No clubbing, No cyanosis Skin: No rashes, No breakdown, No significant lesion - Results Results: Laboratory Results WBC 10.1 x10^3/uL (4.8-10.8) 04/08/17 05:04 RBC 3.90 10^6/uL (4.70-6.10) L 04/08/17 05:04 Hgb 11.9 g/dL (14.0-18.0) L 04/08/17 05:04 Hct 34.4 % (42.0-52.0) L 04/08/17 05:04 MCV 88.1 fL (80.0-94.0) 04/08/17 05:04 MCH 30.6 pg (27.0-31.0) 04/08/17 05:04 MCHC 34.7 g/dL (32.0-36.0) 04/08/17 05:04 RDW 12.9 % (12.0-15.0) 04/08/17 05:04 Plt Count 219 10^3/uL (130-450) 04/08/17 05:04 MPV 8.7 fL (7.4-11.4) 04/08/17 05:04 Neut # 7.2 10^3/uL (1.5-6.6) H 04/08/17 05:04 Lymph # 1.9 10^3/uL (1.5-3.5) 04/08/17 05:04 [place] # 0.8 10^3/uL (0.0-1.0) 04/08/17 05:04 Eos # 0.1 10^3/uL (0.0-0.7) 04/08/17 05:04 Baso # 0.1 10^3/uL (0.0-0.1) 04/08/17 05:04 Absolute Nucleated RBC 0.00 x10^3/uL 04/08/17 05:04 Nucleated RBCs 0.0 /100WBC 04/08/17 05:04 PT 17.1 secs (9.9-12.6) H 04/06/17 15:53 INR 1.5 (0.8-1.2) H 04/06/17 15:53 APTT 27.4 secs (24.9-33.3) 04/06/17 15:53 Sodium 133 mmol/L (135-145) L 04/08/17 05:04 Potassium 3.7 mmol/L (3.5-5.0) 04/08/17 05:04 Chloride 102 mmol/L (101-111) 04/08/17 05:04 Carbon Dioxide 25 mmol/L (21-32) 04/08/17 05:04 Anion Gap 6.0 (6-13) 04/08/17 05:04 BUN 5 mg/dL (6-20) L 04/08/17 05:04 Creatinine 0.6 mg/dL (0.6-1.2) 04/08/17 05:04 Estimated GFR (MDRD) 146 (>89) 04/08/17 05:04 Glucose 148 mg/dL (70-100) H 04/08/17 05:04 Glycated Hemoglobin 6.1 % (4.6-6.2) 04/04/17 02:25 Estim Average Glucose 128 (70-100) H 04/04/17 02:25 Lactic Acid 0.5 mmol/L (0.5-2.2) 04/04/17 04:26 Calcium 8.0 mg/dL (8.5-10.3) L 04/08/17 05:04 Phosphorus 3.8 mg/dL (2.5-4.6) 04/07/17 05:32 Magnesium 1.8 mg/dL (1.7-2.8) 04/07/17 05:32 Total Bilirubin 0.4 mg/dL (0.2-1.0) 04/08/17 05:04 AST 26 IU/L (10-42) 04/08/17 05:04 ALT 16 IU/L (10-60) 04/08/17 05:04 Alkaline Phosphatase 41 IU/L (42-121) L 04/08/17 05:04 C-Reactive Protein 15.3 mg/dL (0-1.0) H 04/04/17 07:50 Total Protein 6.4 g/dL (6.7-8.2) L 04/08/17 05:04 Albumin 2.7 g/dL (3.2-5.5) L 04/08/17 05:04 Globulin 3.7 g/dL (2.1-4.2) 04/08/17 05:04 Albumin/Globulin Ratio 0.7 (1.0-2.2) L 04/08/17 05:04 Amylase 46 U/L (28-100) 04/05/17 05:18 Lipase 24 U/L (22-51) 04/05/17 05:18 Urine Color YELLOW 04/04/17 00:45 Urine Clarity CLEAR (CLEAR) 04/04/17 00:45 Urine pH 7.0 PH (5.0-7.5) 04/04/17 00:45 Ur Specific [place] 1.015 (1.002-1.030) 04/04/17 00:45 Urine Protein NEGATIVE mg/dL (NEGATIVE) 04/04/17 00:45 Urine Glucose (UA) NEGATIVE mg/dL (NEGATIVE) 04/04/17 00:45 Urine Ketones TRACE mg/dL (NEGATIVE) 04/04/17 00:45 Urine Occult Blood TRACE-INTA (NEGATIVE) 04/04/17 00:45 Urine Nitrite NEGATIVE (NEGATIVE) 04/04/17 00:45 Urine Bilirubin NEGATIVE (NEGATIVE) 04/04/17 00:45 Urine Urobilinogen 0.2 (NORMAL) E.U./dL (NORMAL) 04/04/17 00:45 Ur Leukocyte Esterase NEGATIVE (NEGATIVE) 04/04/17 00:45 Ur Microscopic Review NOT INDICATED 04/04/17 00:45 Urine Culture Comments NOT INDICATED 04/04/17 00:45 Blood Type B POSITIVE 04/06/17 15:53 Blood Type Recheck B POSITIVE 04/06/17 05:19 Antibody Screen NEGATIVE 04/06/17 15:53 Crossmatch IS Only See Detail 04/06/17 15:53
[2017-04-08] MEDS: SACCHAROMYCES BOULARDII 250 MG CAPSULE PO SCH ×2 (08:41→18:24)
[2017-04-08] MEDS: HEPARIN 5,000 UNIT/ML VIAL SUBQ SCH ×2 (08:42→20:50)
--- NOTE | 2017-04-08 09:32 | PROVIDER PROGRESS NOTE ---
Subjective - General Admit Date: 04/04/17 Procedure Date: 04/06/17 Post Op Days: 2 Procedure Performed: Alex's procedure - Review of Systems Wound/Incisions: positive: Healing well Drain Type: CAROLYNN x2 Drain Output Description: serosanguenous Approximate mls Output: Left 30, right 10 General: positive: No symptoms, Fever (Transient elevation to 38.3 which upon subsequent measurements has subsided.) HEENT: positive: No symptoms Pulmonary: positive: No symptoms Cardiovascular: positive: No symptoms Gastrointestinal: positive: Abdominal pain (appropriate abdominal pain well controlled with STATE DIRECTOR). negative: Flatus, Constipation Genitourinary: positive: No symptoms (Jaeger in place) Skin: positive: No symptoms - Other Other Information/Narrative: Patient seen at bedside. Denies any complaints. Using IS. pain controlled with STATE DIRECTOR. Has not been ambulating. No gas or stool in bag. no othe events reported. Objective - Patient Data Vital Signs: Vital Signs x48h Temp Pulse Resp BP Pulse Ox 04/08/17 09:17 36.8 C 81 16 118/71 95 04/08/17 06:40 16 04/08/17 06:39 37.0 C 04/08/17 05:13 38.3 C H 88 18 135/83 H 96 Intake & Output: Intake and Output Totals x24h 04/06/17 04/07/17 04/08/17 23:59 23:59 23:59 Intake Total 2223 3983 1332 Output Total 3285 3010 Balance 2223 408 -7528 - Lab Results Lab Results: 04/08/17 05:04 04/08/17 05:04 Other Lab Results: Lab Results x24hrs 04/08/17 04/08/17 04/08/17 Range/Units 05:04 05:04 05:04 WBC 10.1 (4.8-10.8) x10^3/uL RBC 3.90 L (4.70-6.10) 10^6/uL Hgb 11.9 L (14.0-18.0) g/dL Hct 34.4 L (42.0-52.0) % MCV 88.1 (80.0-94.0) fL MCH 30.6 (27.0-31.0) pg MCHC 34.7 (32.0-36.0) g/dL RDW 12.9 (12.0-15.0) % Plt Count 219 (130-450) 10^3/uL MPV 8.7 (7.4-11.4) fL Neut # 7.2 H (1.5-6.6) 10^3/uL Lymph # 1.9 (1.5-3.5) 10^3/uL [place] # 0.8 (0.0-1.0) 10^3/uL Eos # 0.1 (0.0-0.7) 10^3/uL Baso # 0.1 (0.0-0.1) 10^3/uL Absolute Nucleated RBC 0.00 x10^3/uL Nucleated RBCs 0.0 /100WBC Sodium 133 L (135-145) mmol/L Potassium 3.7 (3.5-5.0) mmol/L Chloride 102 (101-111) mmol/L Carbon Dioxide 25 (21-32) mmol/L Anion Gap 6.0 (6-13) BUN 5 L (6-20) mg/dL Creatinine 0.6 (0.6-1.2) mg/dL Estimated GFR (MDRD) 146 (>89) Glucose 148 H (70-100) mg/dL Calcium 8.0 L (8.5-10.3) mg/dL Magnesium 1.9 (1.7-2.8) mg/dL Total Bilirubin 0.4 (0.2-1.0) mg/dL AST 26 (10-42) IU/L ALT 16 (10-60) IU/L Alkaline Phosphatase 41 L (42-121) IU/L Total Protein 6.4 L (6.7-8.2) g/dL Albumin 2.7 L (3.2-5.5) g/dL Globulin 3.7 (2.1-4.2) g/dL Albumin/Globulin Ratio 0.7 L (1.0-2.2) - Current Medications Current Medications: Current Medications Generic Name Dose Route Start Last Admin Trade Name Freq PRN Reason Stop Dose Admin Heparin Sodium (Porcine) 5,000 unit 04/07/17 21:00 04/08/17 08:42 SUBQ 5,000 unit BID NOEMI Administration Piperacillin Sod/Tazobactam 100 mls @ 200 mls/hr 04/04/17 12:00 04/08/17 05:59 Sod 4.5 gm/ Sodium Chloride IV 200 mls/hr Q6H NOEMI Administration Metronidazole 100 mls @ 100 mls/hr 04/04/17 08:00 04/08/17 07:36 Flagyl 500 Mg/100 Ml IV 100 mls/hr Q6H NOEMI Administration Acetaminophen 100 mls @ 400 mls/hr 04/06/17 22:51 04/08/17 05:16 Ofirmev IV 04/08/17 22:50 400 mls/hr Q6HR PRN Administration PAIN Potassium Chloride/Dextrose/Sod Cl 1,000 mls @ 125 mls/hr 04/07/17 08:00 06:34 D5.45ns W/20 Meq Kcl IV 125 mls/hr .Q8H NOEMI Administration Morphine Sulfate/Sodium Chloride 50 mg 04/07/17 07:07 04/07/17 08:15 Morphine Manager Inside (Use Manager Inside Order Set) IV 50 mg STATE DIRECTOR PRN Administration PAIN Protocol Ondansetron HCl 4 mg 04/06/17 22:51 04/07/17 00:13 Zofran Inj IVP 4 mg Q6H PRN Administration Nausea / Vomiting Pantoprazole Sodium 40 mg 04/07/17 07:00 04/08/17 06:34 Protonix PO 40 mg QDAC NOEMI Administration Saccharomyces Boulardii 500 mg 04/06/17 13:00 04/08/17 08:41 Florastor PO 500 mg BIDWM NOEMI Administration Sodium Chloride 10 ml 04/07/17 06:00 04/08/17 06:30 Normal Saline Flush 0.9% IVP Not Given Q8HR [facility] - Physical Exam Wound/Incisions: positive: Dressing dry and intact, Other (Ostomy stoma slightly dusky though appears viable.) General Appearance: positive: No acute distress Eyes Bilateral: positive: EOMI ENT: positive: No signs of dehydration Neck: positive: Trachea midline Respiratory: positive: Breath sounds nml Cardiovascular: positive: Regular rate & rhythm Abdomen: positive: Tenderness (Hypoactive BS, soft ND, ttp appropriately at surgical sites. CAROLYNN drains in place. Ostomy slightly dusky. patent.) Skin: positive: Warm, Dry Extremities: negative: Pedal edema, Calf tenderness, Patricia's sign/cords Neurologic/Psychiatric: positive: Oriented x3, CN's nml (2-12) Impression/Plan - Problem List Problem List: 46 yo male with perforated diverticulitis s/p Alex's procedure. POD#2 Will start titrating off Morphine STATE DIRECTOR Continue current ABX IVF Will f/u pathology OOB as tolerated Incentive spirometery Jaeger removed - voiding trial today. Surgery will change dressing in am GI prophylaxis with Protonix DVT prophylaxis with SCD's/ teds/ HSQ Advance diet slowly likely to develop ileus. PT and Ostomy teams to work with patient.
[2017-04-08] MEDS: MORPHINE PCA 50 MG IV PRN (10:56)
[2017-04-09] MEDS: PIPERACILLIN/TAZOBACTAM 4.5 GM in SODIUM CHLORIDE 0.9% MINIBAG 100 ML IV SCH ×5 (00:06→23:44)
[2017-04-09] MEDS: metroNIDAZOLE 500 MG/100 ML 100 ML IV SCH ×2 (01:41→08:23)
[2017-04-09] MEDS: D5.45NS W/20 MEQ KCL 1,000 ML IV SCH ×3 (04:10→13:36)
[2017-04-09] MEDS: SODIUM CHLORIDE FLUSH 0.9% 10 ML SYRINGE IVP SCH ×3 (04:29→18:09)
[2017-04-09] MEDS: traMADol 50 MG TABLET PO PRN ×4 (06:00→23:57)
[2017-04-09] MEDS: PANTOPRAZOLE 40 MG TABLET PO SCH (06:00)
[2017-04-09 06:15] LABS: BASOPHILS # (AUTO) 0.1 10^3/uL (0.0-0.1); BASOPHILS % (AUTO) 0.6 %; EOSINOPHILS # (AUTO) 0.2 10^3/uL (0.0-0.7); HGB - HEMOGLOBIN 12.6 g/dL (14.0-18.0); LYMPHOCYTES % (AUTO) 21.9 %; MEAN CORPUSCULAR HEMOGLOBIN 30.1 pg (27.0-31.0); MEAN CORPUSCULAR VOLUME 88.6 fL (80.0-94.0); MEAN PLATELET VOLUME 8.5 fL (7.4-11.4); MONOCYTES # (AUTO) 0.8 10^3/uL (0.0-1.0); MONOCYTES % (AUTO) 8.3 %; NEUTROPHILS # (AUTO) 6.2 10^3/uL (1.5-6.6); NEUTROPHILS % (AUTO) 67.2 %; RED BLOOD COUNT 4.17 10^6/uL (4.70-6.10); RED CELL DISTRIBUTION WIDTH 12.7 % (12.0-15.0); UNCORRECTED WHITE BLOOD COUNT 9.3 x10^3/uL; WHITE BLOOD COUNT 9.3 x10^3/uL (4.8-10.8)
[2017-04-09 06:24] LABS: ALBUMIN/GLOBULIN RATIO 0.7 (1.0-2.2); BILIRUBIN,TOTAL 0.5 mg/dL (0.2-1.0); CALCIUM 8.4 mg/dL (8.5-10.3); CREATININE 0.6 mg/dL (0.6-1.2); POTASSIUM 3.8 mmol/L (3.5-5.0); TOTAL PROTEIN 6.8 g/dL (6.7-8.2)
[2017-04-09] MEDS: SODIUM CHLORIDE FLUSH 0.9% 10 ML SYRINGE IVP PRN ×5 (07:49→23:45)
[2017-04-09] MEDS: ONDANSETRON 4 MG/2 ML VIAL IVP PRN (07:49)
[2017-04-09] MEDS ORDERED: MORPHINE PCA 50 MG IV PRN (08:12)
[2017-04-09] MEDS: SACCHAROMYCES BOULARDII 250 MG CAPSULE PO SCH ×2 (08:23→18:08)
[2017-04-09] MEDS: PSYLLIUM PACKET PO SCH (08:24)
[2017-04-09] MEDS: HEPARIN 5,000 UNIT/ML VIAL SUBQ SCH ×2 (08:30→20:44)
[2017-04-09] MEDS: MORPHINE 2 MG/ML SYRINGE IVP PRN ×2 (11:10→14:04)
--- NOTE | 2017-04-09 11:56 | PROVIDER PROGRESS NOTE ---
Assessment/Plan - Problem List (1) Status post Alex's procedure Assessment/Plan: improving. will taper off the [employer]ION pump to oral tramadol and IV morphine for breakthrough pain with ambulation. continue to advance diet. ostomy still putting out littel. patient encouraged to ambulate in hallways. monitor for electrolyte and white blood count changes (2) Acute hyponatremia Assessment/Plan: resolving. continue to encourage oral intake and monitor electrolytes with daily blood draw (3) Colostomy care Assessment/Plan: ongoing. MAC to see patient for teaching for colostomy care. continue to provide bedside education (4) Abdominal pain, acute, left lower quadrant Assessment/Plan: ongoing but resolving. continue to give tramadol and morphine for breakthrough pain as needed. encourage ambulation (5) Abscess of sigmoid colon due to diverticulitis Assessment/Plan: resolving. continue to monitor white blood count and for signs of fever or sepsis. continue on antibiotics Zosyn and stop IV flagyl - Current Meds Current Meds: Current Medications Generic Name Dose Route Start Last Admin Trade Name Freq PRN Reason Stop Dose Admin Heparin Sodium (Porcine) 5,000 unit 04/07/17 21:00 04/09/17 08:30 SUBQ 5,000 unit BID NOEMI Administration Piperacillin Sod/Tazobactam 100 mls @ 200 mls/hr 04/04/17 12:00 04/09/17 05:53 Sod 4.5 gm/ Sodium Chloride IV 200 mls/hr Q6H NOEMI Administration Potassium Chloride/Dextrose/Sod Cl 1,000 mls @ 125 mls/hr 04/07/17 08:00 08:22 D5.45ns W/20 Meq Kcl IV Not Given .Q8H NOEMI Morphine Sulfate 2 mg 04/09/17 08:33 04/09/17 11:10 Morphine IVP 2 mg Q2HR PRN Administration PAIN Ondansetron HCl 4 mg 04/06/17 22:51 04/09/17 07:49 Zofran Inj IVP 4 mg Q6H PRN Administration Nausea / Vomiting Pantoprazole Sodium 40 mg 04/07/17 07:00 04/09/17 06:00 Protonix PO 40 mg QDAC NOEMI Administration Psyllium Hydrophilic Mucilloid 1 packet 04/09/17 09:00 04/09/17 08:24 Metamucil PO 1 packet DAILY NOEMI Administration Saccharomyces Boulardii 500 mg 04/06/17 13:00 04/09/17 08:23 Florastor PO 500 mg BIDWM NOEMI Administration Sodium Chloride 10 ml 04/04/17 04:41 04/09/17 11:11 Normal Saline Flush 0.9% IVP 10 ml PRN PRN Administration NEEDED PER PROVIDER ORDERS Sodium Chloride 10 ml 04/07/17 06:00 04/09/17 04:29 Normal Saline Flush 0.9% IVP Not Given Q8HR NOEMI Tramadol HCl 50 mg 04/08/17 15:13 04/09/17 06:00 Ultram PO 50 mg Q4HR PRN Administration PAIN - Lab Result Lab results reviewed: Yes Fish Bone Diagrams: 04/09/17 05:42 04/09/17 05:42 Other Lab Results: Abnormal Lab Results 04/08/17 04/08/17 04/09/17 05:04 05:04 05:42 RBC 3.90 10^6/uL L 10^6/uL 4.17 10^6/uL L 10^6/uL (4.70-6.10) (4.70-6.10) Hgb 11.9 g/dL L g/dL 12.6 g/dL L g/dL (14.0-18.0) (14.0-18.0) Hct 34.4 % L % 37.0 % L % (42.0-52.0) (42.0-52.0) Neut # 7.2 10^3/uL H 10^3/uL (1.5-6.6) Sodium 133 mmol/L L mmol/L (135-145) BUN 5 mg/dL L mg/dL (6-20) Glucose 148 mg/dL H mg/dL (70-100) Calcium 8.0 mg/dL L mg/dL (8.5-10.3) Alkaline Phosphatase 41 IU/L L IU/L (42-121) Total Protein 6.4 g/dL L g/dL (6.7-8.2) Albumin 2.7 g/dL L g/dL (3.2-5.5) Albumin/Globulin Ratio 0.7 L (1.0-2.2) 04/09/17 05:42 RBC Hgb Hct Neut # Sodium 134 mmol/L L mmol/L (135-145) BUN Glucose 152 mg/dL H mg/dL (70-100) Calcium 8.4 mg/dL L mg/dL (8.5-10.3) Alkaline Phosphatase Total Protein Albumin 2.9 g/dL L g/dL (3.2-5.5) Albumin/Globulin Ratio 0.7 L (1.0-2.2) - EKG Results EKG Interpreted Independently: No - Additional Planning Condition/Complexity: Improved My Orders: My Active Orders 04/08/17 15:13 traMADol [Ultram] 50 mg PO Q4HR PRN 04/09/17 08:33 Morphine Inj [Morphine] 2 mg IVP Q2HR PRN Consult/Specialty: OT, PT, Surgery Plan Discussed with:: Patient, Spouse, Case Management Time Spent: 31-60 minutes Subjective - Subjective Patient Reports: Feeling Better, Resting Comfortably, No Complaints Nursing Reports: No Complaints (patient only has signs of pain with up and ambulating in the hallways. no nausea or vomiting and advancing diet as tolerated) Objective Vital Signs: Vital Signs - 24 hr 04/08/17 04/08/17 04/08/17 13:41 14:00 16:29 Temperature 37.0 C Heart Rate [ 88 Brachial] Respiratory 16 16 16 Rate Blood Pressure 126/79 [Left Brachial artery] O2 Saturation 99 04/08/17 04/08/17 04/08/17 16:50 21:14 23:38 Temperature 37.1 C 37.8 C H 37.3 C Heart Rate [ 80 80 79 Brachial] Respiratory 18 18 18 Rate Blood Pressure 116/74 132/74 H 130/83 H [Left Brachial artery] O2 Saturation 97 97 96 04/09/17 04/09/17 04:54 08:00 Temperature 36.5 C 36.4 C L Heart Rate [ 81 91 Brachial] Respiratory 17 20 Rate Blood Pressure 140/88 H 126/84 H [Left Brachial artery] O2 Saturation 98 96 Oxygen O2 Source Room air I&O (Last 24 Hrs): Intake and Output Totals x24h 04/07/17 04/08/17 04/09/17 23:59 23:59 23:59 Intake Total 3983 3912 1280 Output Total 3285 5280 1325 Balance 698 -1368 -45 General: Alert, Oriented x3, Cooperative HEENT: PERRLA, Mucous membr. moist/pink Neck: Supple, No JVD, No thyromegaly Lymphatic: no adenopathy Neuro: Alert, CN 2-12 Grossly Intact, Oriented Times 3 Cardiovascular: Regular rate, Normal S1, Normal S2, No murmurs Respiratory: Chest non-tender, No respiratory distress, Breath sounds nml Abdomen: Soft, No masses (Patient will need another 24-48 hours inpatient stay. He is now tolerating full liquid and passing gas. teaching about colostomy and IV antibiotics still needed. pain manangement with ambulation), Other (tender around colostomy site) Rectal: Stool - Heme NEG Extremities: No clubbing, No cyanosis, No edema, Normal pulses, No tenderness/ swelling Skin: No rashes, No breakdown, No significant lesion - Results Results: Laboratory Results WBC 9.3 x10^3/uL (4.8-10.8) 04/09/17 05:42 RBC 4.17 10^6/uL (4.70-6.10) L 04/09/17 05:42 Hgb 12.6 g/dL (14.0-18.0) L 04/09/17 05:42 Hct 37.0 % (42.0-52.0) L 04/09/17 05:42 MCV 88.6 fL (80.0-94.0) 04/09/17 05:42 MCH 30.1 pg (27.0-31.0) 04/09/17 05:42 MCHC 34.0 g/dL (32.0-36.0) 04/09/17 05:42 RDW 12.7 % (12.0-15.0) 04/09/17 05:42 Plt Count 272 10^3/uL (130-450) 04/09/17 05:42 MPV 8.5 fL (7.4-11.4) 04/09/17 05:42 Neut # 6.2 10^3/uL (1.5-6.6) 04/09/17 05:42 Lymph # 2.0 10^3/uL (1.5-3.5) 04/09/17 05:42 [place] # 0.8 10^3/uL (0.0-1.0) 04/09/17 05:42 Eos # 0.2 10^3/uL (0.0-0.7) 04/09/17 05:42 Baso # 0.1 10^3/uL (0.0-0.1) 04/09/17 05:42 Absolute Nucleated RBC 0.00 x10^3/uL 04/09/17 05:42 Nucleated RBCs 0.0 /100WBC 04/09/17 05:42 PT 17.1 secs (9.9-12.6) H 04/06/17 15:53 INR 1.5 (0.8-1.2) H 04/06/17 15:53 APTT 27.4 secs (24.9-33.3) 04/06/17 15:53 Sodium 134 mmol/L (135-145) L 04/09/17 05:42 Potassium 3.8 mmol/L (3.5-5.0) 04/09/17 05:42 Chloride 103 mmol/L (101-111) 04/09/17 05:42 Carbon Dioxide 23 mmol/L (21-32) 04/09/17 05:42 Anion Gap 8.0 (6-13) 04/09/17 05:42 BUN 6 mg/dL (6-20) 04/09/17 05:42 Creatinine 0.6 mg/dL (0.6-1.2) 04/09/17 05:42 Estimated GFR (MDRD) 146 (>89) 04/09/17 05:42 Glucose 152 mg/dL (70-100) H 04/09/17 05:42 Glycated Hemoglobin 6.1 % (4.6-6.2) 04/04/17 02:25 Estim Average Glucose 128 (70-100) H 04/04/17 02:25 Lactic Acid 0.5 mmol/L (0.5-2.2) 04/04/17 04:26 Calcium 8.4 mg/dL (8.5-10.3) L 04/09/17 05:42 Phosphorus 3.8 mg/dL (2.5-4.6) 04/07/17 05:32 Magnesium 1.9 mg/dL (1.7-2.8) 04/08/17 05:04 Total Bilirubin 0.5 mg/dL (0.2-1.0) 04/09/17 05:42 AST 27 IU/L (10-42) 04/09/17 05:42 ALT 19 IU/L (10-60) 04/09/17 05:42 Alkaline Phosphatase 45 IU/L (42-121) 04/09/17 05:42 C-Reactive Protein 15.3 mg/dL (0-1.0) H 04/04/17 07:50 Total Protein 6.8 g/dL (6.7-8.2) 04/09/17 05:42 Albumin 2.9 g/dL (3.2-5.5) L 04/09/17 05:42 Globulin 3.9 g/dL (2.1-4.2) 04/09/17 05:42 Albumin/Globulin Ratio 0.7 (1.0-2.2) L 04/09/17 05:42 Amylase 46 U/L (28-100) 04/05/17 05:18 Lipase 24 U/L (22-51) 04/05/17 05:18 Urine Color YELLOW 04/04/17 00:45 Urine Clarity CLEAR (CLEAR) 04/04/17 00:45 Urine pH 7.0 PH (5.0-7.5) 04/04/17 00:45 Ur Specific [place] 1.015 (1.002-1.030) 04/04/17 00:45 Urine Protein NEGATIVE mg/dL (NEGATIVE) 04/04/17 00:45 Urine Glucose (UA) NEGATIVE mg/dL (NEGATIVE) 04/04/17 00:45 Urine Ketones TRACE mg/dL (NEGATIVE) 04/04/17 00:45 Urine Occult Blood TRACE-INTA (NEGATIVE) 04/04/17 00:45 Urine Nitrite NEGATIVE (NEGATIVE) 04/04/17 00:45 Urine Bilirubin NEGATIVE (NEGATIVE) 04/04/17 00:45 Urine Urobilinogen 0.2 (NORMAL) E.U./dL (NORMAL) 04/04/17 00:45 Ur Leukocyte Esterase NEGATIVE (NEGATIVE) 04/04/17 00:45 Ur Microscopic Review NOT INDICATED 04/04/17 00:45 Urine Culture Comments NOT INDICATED 04/04/17 00:45 Blood Type B POSITIVE 04/06/17 15:53 Blood Type Recheck B POSITIVE 04/06/17 05:19 Antibody Screen NEGATIVE 04/06/17 15:53 Crossmatch IS Only See Detail 04/06/17 15:53
--- NOTE | 2017-04-09 12:14 | PROVIDER PROGRESS NOTE ---
Subjective - General Admit Date: 04/04/17 Procedure Date: 04/06/17 Post Op Days: 3 Procedure Performed: Alex's procedure - Review of Systems Wound/Incisions: positive: Dressing dry and intact, Other (Ostomy stoma slightly dusky though appears viable.) Drain Type: CAROLYNN x2 Drain Output Description: serous Approximate mls Output: Left 50, right 60 General: positive: No symptoms HEENT: positive: No symptoms Pulmonary: positive: No symptoms Cardiovascular: positive: No symptoms Gastrointestinal: positive: Abdominal pain (appropriate abdominal pain well controlled). negative: Flatus, Constipation Genitourinary: positive: No symptoms Skin: positive: No symptoms All Other Systems: positive: Reviewed and negative - Other Other Information/Narrative: Pt seen at bedside. doing well. Ambulating, using IS, urinating. Ostomy with no gas or stool yet. Ostomy while dusky is patent and tested with good blood return on needle stick test. Patient is tolerating clears well. Occasional nausea, no vomiting Objective - Patient Data Reviewed Vital Signs: Yes Vital Signs: Vital Signs x48h Temp Pulse Resp BP Pulse Ox 04/09/17 08:00 36.4 C L 91 20 126/84 H 96 04/09/17 04:54 36.5 C 81 17 140/88 H 98 Intake & Output: Intake and Output Totals x24h 04/07/17 04/08/17 04/09/17 23:59 23:59 23:59 Intake Total 3983 3912 1280 Output Total 3285 5280 1325 Balance 698 -1368 -45 - Lab Results Lab Results: 04/09/17 05:42 04/09/17 05:42 Other Lab Results: Lab Results x24hrs 04/09/17 04/09/17 Range/Units 05:42 05:42 WBC 9.3 (4.8-10.8) x10^3/uL RBC 4.17 L (4.70-6.10) 10^6/uL Hgb 12.6 L (14.0-18.0) g/dL Hct 37.0 L (42.0-52.0) % MCV 88.6 (80.0-94.0) fL MCH 30.1 (27.0-31.0) pg MCHC 34.0 (32.0-36.0) g/dL RDW 12.7 (12.0-15.0) % Plt Count 272 (130-450) 10^3/uL MPV 8.5 (7.4-11.4) fL Neut # 6.2 (1.5-6.6) 10^3/uL Lymph # 2.0 (1.5-3.5) 10^3/uL [place] # 0.8 (0.0-1.0) 10^3/uL Eos # 0.2 (0.0-0.7) 10^3/uL Baso # 0.1 (0.0-0.1) 10^3/uL Absolute Nucleated RBC 0.00 x10^3/uL Nucleated RBCs 0.0 /100WBC Sodium 134 L (135-145) mmol/L Potassium 3.8 (3.5-5.0) mmol/L Chloride 103 (101-111) mmol/L Carbon Dioxide 23 (21-32) mmol/L Anion Gap 8.0 (6-13) BUN 6 (6-20) mg/dL Creatinine 0.6 (0.6-1.2) mg/dL Estimated GFR (MDRD) 146 (>89) Glucose 152 H (70-100) mg/dL Calcium 8.4 L (8.5-10.3) mg/dL Total Bilirubin 0.5 (0.2-1.0) mg/dL AST 27 (10-42) IU/L ALT 19 (10-60) IU/L Alkaline Phosphatase 45 (42-121) IU/L Total Protein 6.8 (6.7-8.2) g/dL Albumin 2.9 L (3.2-5.5) g/dL Globulin 3.9 (2.1-4.2) g/dL Albumin/Globulin Ratio 0.7 L (1.0-2.2) - Current Medications Current Medications: Current Medications Generic Name Dose Route Start Last Admin Trade Name Freq PRN Reason Stop Dose Admin Heparin Sodium (Porcine) 5,000 unit 04/07/17 21:00 04/09/17 08:30 SUBQ 5,000 unit BID NOEMI Administration Piperacillin Sod/Tazobactam 100 mls @ 200 mls/hr 04/04/17 12:00 04/09/17 05:53 Sod 4.5 gm/ Sodium Chloride IV 200 mls/hr Q6H NOEMI Administration Potassium Chloride/Dextrose/Sod Cl 1,000 mls @ 125 mls/hr 04/07/17 08:00 08:22 D5.45ns W/20 Meq Kcl IV Not Given .Q8H NOEMI Morphine Sulfate 2 mg 04/09/17 08:33 04/09/17 11:10 Morphine IVP 2 mg Q2HR PRN Administration PAIN Ondansetron HCl 4 mg 04/06/17 22:51 04/09/17 07:49 Zofran Inj IVP 4 mg Q6H PRN Administration Nausea / Vomiting Pantoprazole Sodium 40 mg 04/07/17 07:00 04/09/17 06:00 Protonix PO 40 mg QDAC NOEMI Administration Psyllium Hydrophilic Mucilloid 1 packet 04/09/17 09:00 04/09/17 08:24 Metamucil PO 1 packet DAILY NOEMI Administration Saccharomyces Boulardii 500 mg 04/06/17 13:00 04/09/17 08:23 Florastor PO 500 mg BIDWM NOEMI Administration Sodium Chloride 10 ml 04/04/17 04:41 04/09/17 11:11 Normal Saline Flush 0.9% IVP 10 ml PRN PRN Administration NEEDED PER PROVIDER ORDERS Sodium Chloride 10 ml 04/07/17 06:00 04/09/17 04:29 Normal Saline Flush 0.9% IVP Not Given Q8HR [facility] Tramadol HCl 50 mg 04/08/17 15:13 04/09/17 06:00 Ultram PO 50 mg Q4HR PRN Administration PAIN - Physical Exam Wound/Incisions: positive: Healing well General Appearance: positive: No acute distress Eyes Bilateral: positive: EOMI Respiratory: positive: Breath sounds nml Cardiovascular: positive: Regular rate & rhythm Abdomen: positive: Nml bowel sounds. negative: Guarding, Rebound (+Bs, soft obese abdomen. Surgical site dressing changed and packing replaced. No erythema or discharge. fresh dressing applied. Dusky Stoma then evaluatedwith good blood flow on needle prick followed by digitalization of patent tract) Skin: positive: Warm, Dry Extremities: positive: Non-tender. negative: No pedal edema, Pedal edema, Patricia 's sign/cords Neurologic/Psychiatric: positive: Oriented x3, CN's nml (2-12) Impression/Plan - Problem List Problem List: 46 yo male with perforated diverticulitis s/p Alex's procedure. 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 Will f/u pathology Continue ambulation with abdominal binder GI prophylaxis with Protonix DVT prophylaxis with SCD's/ teds/ HSQ Advance diet slowly likely to develop ileus. Will await bowel function before being ready to discharge PT and Ostomy teams to work with patient.
[2017-04-09] MEDS ORDERED: oxyCOD/ACETAMIN 5 MG/325 MG TABLET PO PRN (12:24)
[2017-04-10] MEDS: PIPERACILLIN/TAZOBACTAM 4.5 GM in SODIUM CHLORIDE 0.9% MINIBAG 100 ML IV SCH ×2 (06:05→12:20)
[2017-04-10] MEDS: PANTOPRAZOLE 40 MG TABLET PO SCH (06:06)
[2017-04-10] MEDS: traMADol 50 MG TABLET PO PRN (06:06)
[2017-04-10] MEDS: SODIUM CHLORIDE FLUSH 0.9% 10 ML SYRINGE IVP SCH ×3 (06:07→20:40)
[2017-04-10 06:39] LABS: BASOPHILS # (AUTO) 0.1 10^3/uL (0.0-0.1); BASOPHILS % (AUTO) 0.7 %; EOSINOPHILS # (AUTO) 0.2 10^3/uL (0.0-0.7); EOSINOPHILS % (AUTO) 2.5 %; HCT - HEMATOCRIT 37.5 % (42.0-52.0); HGB - HEMOGLOBIN 12.6 g/dL (14.0-18.0); LYMPHOCYTES # (AUTO) 2.7 10^3/uL (1.5-3.5); LYMPHOCYTES % (AUTO) 31.6 %; MEAN CORPUSCULAR HGB CONC 33.6 g/dL (32.0-36.0); MEAN CORPUSCULAR VOLUME 89.4 fL (80.0-94.0); MEAN PLATELET VOLUME 8.1 fL (7.4-11.4); MONOCYTES # (AUTO) 0.5 10^3/uL (0.0-1.0); MONOCYTES % (AUTO) 6.2 %; RED BLOOD COUNT 4.19 10^6/uL (4.70-6.10); UNCORRECTED WHITE BLOOD COUNT 8.5 x10^3/uL; WHITE BLOOD COUNT 8.5 x10^3/uL (4.8-10.8)
[2017-04-10 06:46] LABS: ALBUMIN/GLOBULIN RATIO 0.7 (1.0-2.2); BILIRUBIN,TOTAL 0.5 mg/dL (0.2-1.0); CALCIUM 8.7 mg/dL (8.5-10.3); CREATININE 0.8 mg/dL (0.6-1.2); POTASSIUM 4.2 mmol/L (3.5-5.0); TOTAL PROTEIN 6.6 g/dL (6.7-8.2)
[2017-04-10] MEDS: SACCHAROMYCES BOULARDII 250 MG CAPSULE PO SCH ×2 (08:33→17:20)
[2017-04-10] MEDS: PSYLLIUM PACKET PO SCH (08:33)
[2017-04-10] MEDS: HEPARIN 5,000 UNIT/ML VIAL SUBQ SCH (08:33)
--- NOTE | 2017-04-10 12:30 | PROVIDER PROGRESS NOTE ---
Assessment/Plan - Problem List (1) Status post Alex's procedure Assessment/Plan: improving. still waiting for patient to pass gas or stool in the ostomy bag. tolerating a full liquid diet. will advance and stop IVF now. continue on pain management with tramadol and norco. continue with surgical following (2) Acute hyponatremia Assessment/Plan: resolving. continue to monitor electrolytes with morning lab draws (3) Colostomy care Assessment/Plan: ongoing. patient did receive teaching and education by [facility] clinic and nursing. will continue to encourage ostomy self care (4) Abdominal pain, acute, left lower quadrant Assessment/Plan: resolving. patient still is on pain medication oral. continue to taper (5) Abscess of sigmoid colon due to diverticulitis Assessment/Plan: resolving. elevated white blood count is improved and continue with IV antibiotics to taker to oral today. monitor CBC (6) Obesity (BMI 30-39.9) Assessment/Plan: ongoing. continue with low fat and low calorie diet and encourage ambulation. patient has been moving in the hallway - Current Meds Current Meds: Current Medications Generic Name Dose Route Start Last Admin Trade Name Freq PRN Reason Stop Dose Admin Heparin Sodium (Porcine) 5,000 unit 04/07/17 21:00 04/10/17 08:33 SUBQ 5,000 unit BID NOEMI Administration Piperacillin Sod/Tazobactam 100 mls @ 200 mls/hr 04/04/17 12:00 04/10/17 12:20 Sod 4.5 gm/ Sodium Chloride IV 200 mls/hr Q6H NOEMI Administration Ondansetron HCl 4 mg 04/06/17 22:51 04/09/17 07:49 Zofran Inj IVP 4 mg Q6H PRN Administration Nausea / Vomiting Pantoprazole Sodium 40 mg 04/07/17 07:00 04/10/17 06:06 Protonix PO 40 mg QDAC NOEMI Administration Psyllium Hydrophilic Mucilloid 1 packet 04/09/17 09:00 04/10/17 08:33 Metamucil PO 1 packet DAILY NOEMI Administration Saccharomyces Boulardii 500 mg 04/06/17 13:00 04/10/17 08:33 Florastor PO 500 mg BIDWM NOEMI Administration Sodium Chloride 10 ml 04/04/17 04:41 04/09/17 23:45 Normal Saline Flush 0.9% IVP 10 ml PRN PRN Administration NEEDED PER PROVIDER ORDERS Sodium Chloride 10 ml 04/07/17 06:00 04/10/17 06:07 Normal Saline Flush 0.9% IVP 10 ml Q8HR NOEMI Administration Tramadol HCl 50 mg 04/08/17 15:13 04/10/17 06:06 Ultram PO 50 mg Q4HR PRN Administration PAIN - Lab Result Lab results reviewed: Yes Fish Bone Diagrams: 04/10/17 06:12 04/10/17 06:12 Other Lab Results: Abnormal Lab Results 04/06/17 04/09/17 04/09/17 15:53 05:42 05:42 RBC 4.17 10^6/uL L 10^6/uL (4.70-6.10) Hgb 12.6 g/dL L g/dL (14.0-18.0) Hct 37.0 % L % (42.0-52.0) Sodium 134 mmol/L L mmol/L (135-145) Glucose 152 mg/dL H mg/dL (70-100) Calcium 8.4 mg/dL L mg/dL (8.5-10.3) Total Protein Albumin 2.9 g/dL L g/dL (3.2-5.5) Albumin/Globulin Ratio 0.7 L (1.0-2.2) Crossmatch IS Only See Detail 04/10/17 04/10/17 06:12 06:12 RBC 4.19 10^6/uL L 10^6/uL (4.70-6.10) Hgb 12.6 g/dL L g/dL (14.0-18.0) Hct 37.5 % L % (42.0-52.0) Sodium Glucose 107 mg/dL H mg/dL (70-100) Calcium Total Protein 6.6 g/dL L g/dL (6.7-8.2) Albumin 2.8 g/dL L g/dL (3.2-5.5) Albumin/Globulin Ratio 0.7 L (1.0-2.2) Crossmatch IS Only - EKG Results EKG Interpreted Independently: No - Additional Planning Condition/Complexity: Stable My Orders: My Active Orders 04/09/17 14:42 Ostomy Care Consult [MAC] Routine 04/10/17 Dinner DIET [Soft Mechanical Diet] [DIET] Consult/Specialty: OT, PT, Surgery Plan Discussed with:: Patient, Spouse Time Spent: 31-60 minutes Additional Planning Notes: plan to discharge patient within the next 24-48 hours when passing gas or food in ostomy bag. pain is reduced and patient is transitioning from IV meds to oral. Subjective - Subjective Patient Reports: Resting Comfortably, No Complaints, Abdominal Pain Nursing Reports: Pain (in the abdomen when walking) Objective Vital Signs: Vital Signs - 24 hr 04/09/17 04/09/17 04/10/17 15:45 20:20 00:25 Temperature 36.8 C 36.8 C 36.6 C Heart Rate [ 88 77 74 Brachial] Respiratory 16 16 16 Rate Blood Pressure 127/79 134/83 H 127/81 H [Left Brachial artery] O2 Saturation 97 98 98 04/10/17 04/10/17 05:46 08:00 Temperature 36.3 C L 36.7 C Heart Rate [ 72 72 Brachial] Respiratory 16 16 Rate Blood Pressure 114/76 118/75 [Left Brachial artery] O2 Saturation 97 96 Oxygen O2 Source Room air I&O (Last 24 Hrs): Intake and Output Totals x24h 04/08/17 04/09/17 04/10/17 23:59 23:59 23:59 Intake Total 3912 3338 420 Output Total 5280 1588 330 Balance -1368 1750 90 General: Alert, Oriented x3, Cooperative HEENT: PERRLA Neck: Supple, No JVD Lymphatic: no adenopathy Neuro: Alert, CN 2-12 Grossly Intact, Oriented Times 3 Cardiovascular: Regular rate, Normal S1, Normal S2 Respiratory: Chest non-tender, No respiratory distress, Breath sounds nml Abdomen: Normal bowel sounds, Soft Extremities: No clubbing, No cyanosis, No edema, Normal pulses, No tenderness/ swelling Skin: No rashes, No breakdown, No significant lesion - Results Results: Laboratory Results WBC 8.5 x10^3/uL (4.8-10.8) 04/10/17 06:12 RBC 4.19 10^6/uL (4.70-6.10) L 04/10/17 06:12 Hgb 12.6 g/dL (14.0-18.0) L 04/10/17 06:12 Hct 37.5 % (42.0-52.0) L 04/10/17 06:12 MCV 89.4 fL (80.0-94.0) 04/10/17 06:12 MCH 30.0 pg (27.0-31.0) 04/10/17 06:12 MCHC 33.6 g/dL (32.0-36.0) 04/10/17 06:12 RDW 13.0 % (12.0-15.0) 04/10/17 06:12 Plt Count 302 10^3/uL (130-450) 04/10/17 06:12 MPV 8.1 fL (7.4-11.4) 04/10/17 06:12 Neut # 5.0 10^3/uL (1.5-6.6) 04/10/17 06:12 Lymph # 2.7 10^3/uL (1.5-3.5) 04/10/17 06:12 [place] # 0.5 10^3/uL (0.0-1.0) 04/10/17 06:12 Eos # 0.2 10^3/uL (0.0-0.7) 04/10/17 06:12 Baso # 0.1 10^3/uL (0.0-0.1) 04/10/17 06:12 Absolute Nucleated RBC 0.00 x10^3/uL 04/10/17 06:12 Nucleated RBCs 0.0 /100WBC 04/10/17 06:12 PT 17.1 secs (9.9-12.6) H 04/06/17 15:53 INR 1.5 (0.8-1.2) H 04/06/17 15:53 APTT 27.4 secs (24.9-33.3) 04/06/17 15:53 Sodium 138 mmol/L (135-145) 04/10/17 06:12 Potassium 4.2 mmol/L (3.5-5.0) 04/10/17 06:12 Chloride 105 mmol/L (101-111) 04/10/17 06:12 Carbon Dioxide 27 mmol/L (21-32) 04/10/17 06:12 Anion Gap 6.0 (6-13) 04/10/17 06:12 BUN 8 mg/dL (6-20) 04/10/17 06:12 Creatinine 0.8 mg/dL (0.6-1.2) 04/10/17 06:12 Estimated GFR (MDRD) 105 (>89) 04/10/17 06:12 Glucose 107 mg/dL (70-100) H 04/10/17 06:12 Glycated Hemoglobin 6.1 % (4.6-6.2) 04/04/17 02:25 Estim Average Glucose 128 (70-100) H 04/04/17 02:25 Lactic Acid 0.5 mmol/L (0.5-2.2) 04/04/17 04:26 Calcium 8.7 mg/dL (8.5-10.3) 04/10/17 06:12 Phosphorus 3.8 mg/dL (2.5-4.6) 04/07/17 05:32 Magnesium 1.9 mg/dL (1.7-2.8) 04/08/17 05:04 Total Bilirubin 0.5 mg/dL (0.2-1.0) 04/10/17 06:12 AST 32 IU/L (10-42) 04/10/17 06:12 ALT 23 IU/L (10-60) 04/10/17 06:12 Alkaline Phosphatase 43 IU/L (42-121) 04/10/17 06:12 C-Reactive Protein 15.3 mg/dL (0-1.0) H 04/04/17 07:50 Total Protein 6.6 g/dL (6.7-8.2) L 04/10/17 06:12 Albumin 2.8 g/dL (3.2-5.5) L 04/10/17 06:12 Globulin 3.8 g/dL (2.1-4.2) 04/10/17 06:12 Albumin/Globulin Ratio 0.7 (1.0-2.2) L 04/10/17 06:12 Amylase 46 U/L (28-100) 04/05/17 05:18 Lipase 24 U/L (22-51) 04/05/17 05:18 Urine Color YELLOW 04/04/17 00:45 Urine Clarity CLEAR (CLEAR) 04/04/17 00:45 Urine pH 7.0 PH (5.0-7.5) 04/04/17 00:45 Ur Specific [place] 1.015 (1.002-1.030) 04/04/17 00:45 Urine Protein NEGATIVE mg/dL (NEGATIVE) 04/04/17 00:45 Urine Glucose (UA) NEGATIVE mg/dL (NEGATIVE) 04/04/17 00:45 Urine Ketones TRACE mg/dL (NEGATIVE) 04/04/17 00:45 Urine Occult Blood TRACE-INTA (NEGATIVE) 04/04/17 00:45 Urine Nitrite NEGATIVE (NEGATIVE) 04/04/17 00:45 Urine Bilirubin NEGATIVE (NEGATIVE) 04/04/17 00:45 Urine Urobilinogen 0.2 (NORMAL) E.U./dL (NORMAL) 04/04/17 00:45 Ur Leukocyte Esterase NEGATIVE (NEGATIVE) 04/04/17 00:45 Ur Microscopic Review NOT INDICATED 04/04/17 00:45 Urine Culture Comments NOT INDICATED 04/04/17 00:45 Blood Type B POSITIVE 04/06/17 15:53 Blood Type Recheck B POSITIVE 04/06/17 05:19 Antibody Screen NEGATIVE 04/06/17 15:53 Crossmatch IS Only See Detail 04/06/17 15:53
[2017-04-10] MEDS: SENNA 8.6 MG TABLET PO SCH (12:39)
[2017-04-10] MEDS: DOCUSATE SODIUM 250 MG CAPSULE PO SCH (12:39)
[2017-04-10] MEDS ORDERED: METOCLOPRAMIDE 10 MG/2 ML VIAL IVP SCH (13:00)
--- NOTE | 2017-04-10 13:47 | PROVIDER PROGRESS NOTE ---
Subjective - General Admit Date: 04/04/17 Procedure Date: 04/06/17 Post Op Days: 4 Procedure Performed: Alex's procedure - Review of Systems Wound/Incisions: positive: Healing well Drain Type: CAROLYNN Drain Output Description: serous Approximate mls Output: right 50 General: positive: No symptoms HEENT: positive: No symptoms Pulmonary: positive: No symptoms Cardiovascular: positive: No symptoms Gastrointestinal: positive: Abdominal pain (appropriate abdominal pain well controlled). negative: Flatus, Constipation Genitourinary: positive: No symptoms Skin: positive: No symptoms All Other Systems: positive: Reviewed and negative - Other Other Information/Narrative: Patient seen and examined bedside, ambulating t, tolerating full liquids, using IS and pain well controlled, good urine output. No gas in bag or BM yet. Ostomy team working with patient. No events reported Objective - Patient Data Reviewed Vital Signs: Yes Vital Signs: Vital Signs x48h Temp Pulse Resp BP Pulse Ox 04/10/17 12:57 36.6 C 78 16 114/62 97 04/10/17 08:00 36.7 C 72 16 118/75 96 04/10/17 05:46 36.3 C L 72 16 114/76 97 Intake & Output: Intake and Output Totals x24h 04/08/17 04/09/17 04/10/17 23:59 23:59 23:59 Intake Total 3912 3338 780 Output Total 5280 1588 350 Balance -1368 1750 430 - Lab Results Lab Results: 04/10/17 06:12 04/10/17 06:12 Other Lab Results: Lab Results x24hrs 04/10/17 04/10/17 04/06/17 Range/Units 06:12 06:12 15:53 WBC 8.5 (4.8-10.8) x10^3/uL RBC 4.19 L (4.70-6.10) 10^6/uL Hgb 12.6 L (14.0-18.0) g/dL Hct 37.5 L (42.0-52.0) % MCV 89.4 (80.0-94.0) fL MCH 30.0 (27.0-31.0) pg MCHC 33.6 (32.0-36.0) g/dL RDW 13.0 (12.0-15.0) % Plt Count 302 (130-450) 10^3/uL MPV 8.1 (7.4-11.4) fL Neut # 5.0 (1.5-6.6) 10^3/uL Lymph # 2.7 (1.5-3.5) 10^3/uL [place] # 0.5 (0.0-1.0) 10^3/uL Eos # 0.2 (0.0-0.7) 10^3/uL Baso # 0.1 (0.0-0.1) 10^3/uL Absolute Nucleated RBC 0.00 x10^3/uL Nucleated RBCs 0.0 /100WBC Sodium 138 (135-145) mmol/L Potassium 4.2 (3.5-5.0) mmol/L Chloride 105 (101-111) mmol/L Carbon Dioxide 27 (21-32) mmol/L Anion Gap 6.0 (6-13) BUN 8 (6-20) mg/dL Creatinine 0.8 (0.6-1.2) mg/dL Estimated GFR (MDRD) 105 (>89) Glucose 107 H (70-100) mg/dL Calcium 8.7 (8.5-10.3) mg/dL Total Bilirubin 0.5 (0.2-1.0) mg/dL AST 32 (10-42) IU/L ALT 23 (10-60) IU/L Alkaline Phosphatase 43 (42-121) IU/L Total Protein 6.6 L (6.7-8.2) g/dL Albumin 2.8 L (3.2-5.5) g/dL Globulin 3.8 (2.1-4.2) g/dL Albumin/Globulin Ratio 0.7 L (1.0-2.2) Blood Type B POSITIVE Antibody Screen NEGATIVE Crossmatch IS Only See Detail - Current Medications Current Medications: Current Medications Generic Name Dose Route Start Last Admin Trade Name Freq PRN Reason Stop Dose Admin Docusate Sodium 250 mg 04/10/17 13:00 04/10/17 12:39 Colace 250mg Capsule PO 250 mg DAILY NOEMI Administration Heparin Sodium (Porcine) 5,000 unit 04/07/17 21:00 04/10/17 08:33 SUBQ 5,000 unit BID NOEMI Administration Piperacillin Sod/Tazobactam 100 mls @ 200 mls/hr 04/04/17 12:00 04/10/17 12:20 Sod 4.5 gm/ Sodium Chloride IV 200 mls/hr Q6H NOEMI Administration Metoclopramide HCl 5 mg 04/10/17 13:00 04/10/17 12:40 Reglan Inj IVP 5 mg Q6HR NOEMI Administration Ondansetron HCl 4 mg 04/06/17 22:51 04/09/17 07:49 Zofran Inj IVP 4 mg Q6H PRN Administration Nausea / Vomiting Pantoprazole Sodium 40 mg 04/07/17 07:00 04/10/17 06:06 Protonix PO 40 mg QDAC NOEMI Administration Psyllium Hydrophilic Mucilloid 1 packet 04/09/17 09:00 04/10/17 08:33 Metamucil PO 1 packet DAILY NOEMI Administration Saccharomyces Boulardii 500 mg 04/06/17 13:00 04/10/17 08:33 Florastor PO 500 mg BIDWM NOEMI Administration Senna 8.6 mg 04/10/17 13:00 04/10/17 12:39 Senokot PO 8.6 mg DAILY NOEMI Administration Sodium Chloride 10 ml 04/04/17 04:41 04/09/17 23:45 Normal Saline Flush 0.9% IVP 10 ml PRN PRN Administration NEEDED PER PROVIDER ORDERS Sodium Chloride 10 ml 04/07/17 06:00 04/10/17 12:41 Normal Saline Flush 0.9% IVP 10 ml Q8HR NOEMI Administration Tramadol HCl 50 mg 04/08/17 15:13 04/10/17 06:06 Ultram PO 50 mg Q4HR PRN Administration PAIN - Physical Exam Wound/Incisions: positive: Healing well (Surgical site healing well. Packing changed. minimal drainage. No erythema noted. No purulence noted. Ostomy less dusky than yesterday. stoma patent. No stool or gas yet). negative: Erythema Eyes Bilateral: positive: EOMI ENT: positive: No signs of dehydration Cardiovascular: positive: Regular rate & rhythm Abdomen: positive: Non-tender, Nml bowel sounds (+bS, soft obesely distended. Minimal tenderness. Surgical site as described above) Impression/Plan - Problem List Problem List: 46 yo male with perforated diverticulitis s/p Alex's procedure. POD#4 [employer]GER stopped Toradol begun Continue current ABX full liquids. Will f/u pathology Continue ambulation with abdominal binder GI prophylaxis with Protonix DVT prophylaxis with SCD's/ teds/ HSQ Will add reglan & colace to help promote BM Will await bowel function before being ready to discharge Will do lab holiday Begin ensure and [facility] PT and Ostomy teams to work with patient.
[2017-04-10] MEDS: MULTIVITAMIN TABLET PO SCH (14:27)
[2017-04-10] MEDS: ENOXAPARIN 40 MG/0.4 ML SYRINGE SUBQ SCH (14:27)
[2017-04-10] MEDS ORDERED: ONDANSETRON ODT 4 MG TABLET TL PRN (16:06)
[2017-04-10] MEDS: METOCLOPRAMIDE 10 MG TABLET PO SCH ×2 (17:20→20:38)
[2017-04-10] MEDS: CEFUROXIME AXETIL 250 MG TABLET PO SCH (20:38)
[2017-04-11] MEDS: traMADol 50 MG TABLET PO PRN (05:54)
[2017-04-11] MEDS: PANTOPRAZOLE 40 MG TABLET PO SCH (05:55)
[2017-04-11] MEDS: METOCLOPRAMIDE 10 MG TABLET PO SCH (05:55)
[2017-04-11] MEDS: SODIUM CHLORIDE FLUSH 0.9% 10 ML SYRINGE IVP SCH (05:55)
[2017-04-11 06:04] LABS: BASOPHILS # (AUTO) 0.1 10^3/uL (0.0-0.1); BASOPHILS % (AUTO) 0.8 %; EOSINOPHILS # (AUTO) 0.2 10^3/uL (0.0-0.7); HCT - HEMATOCRIT 37.5 % (42.0-52.0); HGB - HEMOGLOBIN 12.7 g/dL (14.0-18.0); LYMPHOCYTES # (AUTO) 2.4 10^3/uL (1.5-3.5); LYMPHOCYTES % (AUTO) 28.1 %; MEAN CORPUSCULAR HEMOGLOBIN 30.2 pg (27.0-31.0); MEAN CORPUSCULAR HGB CONC 33.8 g/dL (32.0-36.0); MEAN CORPUSCULAR VOLUME 89.4 fL (80.0-94.0); MONOCYTES # (AUTO) 0.5 10^3/uL (0.0-1.0); MONOCYTES % (AUTO) 6.4 %; NEUTROPHILS # (AUTO) 5.3 10^3/uL (1.5-6.6); NEUTROPHILS % (AUTO) 62.7 %; RED BLOOD COUNT 4.19 10^6/uL (4.70-6.10); RED CELL DISTRIBUTION WIDTH 13.2 % (12.0-15.0); UNCORRECTED WHITE BLOOD COUNT 8.5 x10^3/uL; WHITE BLOOD COUNT 8.5 x10^3/uL (4.8-10.8)
[2017-04-11 06:16] LABS: ALBUMIN/GLOBULIN RATIO 0.8 (1.0-2.2); BILIRUBIN,TOTAL 0.5 mg/dL (0.2-1.0); CALCIUM 8.8 mg/dL (8.5-10.3); CREATININE 0.6 mg/dL (0.6-1.2); POTASSIUM 3.8 mmol/L (3.5-5.0); TOTAL PROTEIN 6.8 g/dL (6.7-8.2)
--- NOTE | 2017-04-11 07:51 | Discharge Plan ---
Discharge Plan Disposition: Home Health Service Condition: Good Prescriptions: traMADol [Ultram] 50 mg PO Q4HR PRN #60 tablet PRN Reason: Pain Ondansetron Odt [Zofran Odt] 4 mg TL Q4HR PRN #60 tablet PRN Reason: Nausea / Vomiting Cefuroxime Axetil [Ceftin] 500 mg PO BID #28 tablet Polyethylene Glycol 3350 [Miralax] 17 gm PO DAILY #30 packet oxyCODONE/ACET 5/325 [Percocet 5 mg/325 mg] 1 tab PO Q6H PRN #28 tablet PRN Reason: Pain Senna [Senokot] 8.6 mg PO DAILY #10 tablet Multivitamin [Theragran] 1 tab PO DAILYWM #30 tablet Diet: Regular Activity Restrictions: Activity as Tolerated Shower Restrictions: No Driving Restrictions: No Weight Bearing: Full Weight Instruction Topics: Diverticulosis Diverticulitis Additional Instructions or Follow Up instructions: Please continue to take all medications as prescribed. You have been given prescriptions for pain, nausea and a stool softener. Take these as needed and as prescribed. Make sure you eat a high fiber, low fat diet. Drink plenty of water throughout the day. No soda and limit caffeine Get plenty of exercise daily. Walking will help the GI tract to resume its normal function. If you experience more pain or have no output in the colostomy bag, please call your surgeon. You will need to follow up in the Surgeons office- Dr Sage on Thursday. Please make this appointment.The number has been given to you. Take typenol if you have a fever and call your Surgeons office. Get plenty of sleep at night and take rest breaks during the day when needed. Follow-Up Care: [facility] [place] [facility] - Wound/Ostomy No Smoking: If you smoke, Please STOP! Call for help. Follow-up with: Demarco Cartwright MD [Primary Care Provider] -
[2017-04-11 08:28] VITALS: BP 134/84
[2017-04-11] MEDS: PSYLLIUM PACKET PO SCH (08:45)
[2017-04-11] MEDS: MULTIVITAMIN TABLET PO SCH (08:46)
[2017-04-11] MEDS: ENOXAPARIN 40 MG/0.4 ML SYRINGE SUBQ SCH (08:46)
[2017-04-11] MEDS: CEFUROXIME AXETIL 250 MG TABLET PO SCH (08:46)
[2017-04-11] MEDS: DOCUSATE SODIUM 250 MG CAPSULE PO SCH (08:46)
[2017-04-11] MEDS: SACCHAROMYCES BOULARDII 250 MG CAPSULE PO SCH (08:46)
[2017-04-11] MEDS: SENNA 8.6 MG TABLET PO SCH (08:50)
[2017-04-11] MEDS ORDERED: POLYETHYLENE GLYCOL 3350 17 GM PACKET PO SCH (09:00)
--- NOTE | 2017-04-11 09:38 | PROVIDER PROGRESS NOTE ---
Subjective - General Admit Date: 04/04/17 Procedure Date: 04/06/17 Post Op Days: 5 Procedure Performed: Alex's procedure - Review of Systems Wound/Incisions: positive: Healing well. negative: Erythema Drain Type: CAROLYNN Drain Output Description: serous Approximate mls Output: right 30 General: positive: No symptoms HEENT: positive: No symptoms Pulmonary: positive: No symptoms Cardiovascular: positive: No symptoms Gastrointestinal: positive: Abdominal pain (appropriate abdominal pain well controlled). negative: Flatus, Constipation Genitourinary: positive: No symptoms Skin: positive: No symptoms All Other Systems: positive: Reviewed and negative - Other Other Information/Narrative: Patient seen at bedside.Doing well. ambulating tolerating diet and ostomy has begun to filll with gas. Urinating well, CAROLYNN with minimal output No issues reported Objective - Patient Data Reviewed Vital Signs: Yes Vital Signs: Vital Signs x48h Temp Pulse Resp BP Pulse Ox 04/11/17 08:27 36.5 C 84 18 134/84 H 98 04/11/17 06:00 37.3 C 62 16 114/59 L 96 Intake & Output: Intake and Output Totals x24h 04/09/17 04/10/17 04/11/17 23:59 23:59 23:59 Intake Total 3338 880 170 Output Total 3264 133 6458 Balance 1750 460 -1285 - Lab Results Lab Results: 04/11/17 05:04 04/11/17 05:04 Other Lab Results: Lab Results x24hrs 04/11/17 04/11/17 Range/Units 05:04 05:04 WBC 8.5 (4.8-10.8) x10^3/uL RBC 4.19 L (4.70-6.10) 10^6/uL Hgb 12.7 L (14.0-18.0) g/dL Hct 37.5 L (42.0-52.0) % MCV 89.4 (80.0-94.0) fL MCH 30.2 (27.0-31.0) pg MCHC 33.8 (32.0-36.0) g/dL RDW 13.2 (12.0-15.0) % Plt Count 310 (130-450) 10^3/uL MPV 8.0 (7.4-11.4) fL Neut # 5.3 (1.5-6.6) 10^3/uL Lymph # 2.4 (1.5-3.5) 10^3/uL [place] # 0.5 (0.0-1.0) 10^3/uL Eos # 0.2 (0.0-0.7) 10^3/uL Baso # 0.1 (0.0-0.1) 10^3/uL Absolute Nucleated RBC 0.00 x10^3/uL Nucleated RBCs 0.0 /100WBC Sodium 137 (135-145) mmol/L Potassium 3.8 (3.5-5.0) mmol/L Chloride 102 (101-111) mmol/L Carbon Dioxide 25 (21-32) mmol/L Anion Gap 10.0 (6-13) BUN 9 (6-20) mg/dL Creatinine 0.6 (0.6-1.2) mg/dL Estimated GFR (MDRD) 146 (>89) Glucose 97 (70-100) mg/dL Calcium 8.8 (8.5-10.3) mg/dL Total Bilirubin 0.5 (0.2-1.0) mg/dL AST 32 (10-42) IU/L ALT 28 (10-60) IU/L Alkaline Phosphatase 43 (42-121) IU/L Total Protein 6.8 (6.7-8.2) g/dL Albumin 3.0 L (3.2-5.5) g/dL Globulin 3.8 (2.1-4.2) g/dL Albumin/Globulin Ratio 0.8 L (1.0-2.2) - Current Medications Current Medications: Current Medications Generic Name Dose Route Start Last Admin Trade Name Freq PRN Reason Stop Dose Admin Cefuroxime Axetil 500 mg 04/10/17 21:00 04/11/17 08:46 Ceftin PO 500 mg BID NOEMI Administration Docusate Sodium 250 mg 04/10/17 13:00 04/11/17 08:46 Colace 250mg Capsule PO 250 mg DAILY NOEMI Administration Enoxaparin Sodium 40 mg 04/10/17 13:57 04/11/17 08:46 Lovenox SUBQ 40 mg DAILY NOEMI Administration Metoclopramide HCl 10 mg 04/10/17 17:00 04/11/17 05:55 Reglan PO 10 mg ACHS NOEMI Administration Multivitamins 1 tab 04/10/17 14:00 04/11/17 08:46 Theragran PO 1 tab DAILYWM NOEMI Administration Pantoprazole Sodium 40 mg 04/07/17 07:00 04/11/17 05:55 Protonix PO 40 mg QDAC NOEMI Administration Polyethylene Glycol 17 gm 04/11/17 09:00 04/11/17 08:50 Miralax PO Not Given DAILY NOEMI Psyllium Hydrophilic Mucilloid 1 packet 04/09/17 09:00 04/11/17 08:45 Metamucil PO 1 packet DAILY NOEMI Administration Saccharomyces Boulardii 500 mg 04/06/17 13:00 04/11/17 08:46 Florastor PO 500 mg BIDWM NOEMI Administration Senna 8.6 mg 04/10/17 13:00 04/11/17 08:50 Senokot PO Not Given DAILY NOEMI Sodium Chloride 10 ml 04/04/17 04:41 04/09/17 23:45 Normal Saline Flush 0.9% IVP 10 ml PRN PRN Administration NEEDED PER PROVIDER ORDERS Sodium Chloride 10 ml 04/07/17 06:00 04/11/17 05:55 Normal Saline Flush 0.9% IVP 10 ml Q8HR NOEMI Administration Tramadol HCl 50 mg 04/08/17 15:13 04/11/17 05:54 Ultram PO 50 mg Q4HR PRN Administration PAIN - Physical Exam Wound/Incisions: positive: Healing well (CAROLYNN drain removed. Surgical packing removed. Steristrips applied. No erythema at surgical site.) Impression/Plan - Problem List Problem List: 46 yo male s/p Alex's for perforated diverticular abscess POD #5 Pathology showed perforated diverticular abscess without malignancy Stable for discharge Ostomy team to work with patient before discharge abx for 2 weeks pain medications stool softners patient may follow up with me in surgery clinic on Thursday.
--- NOTE | 2017-04-11 19:01 | DISCHARGE SUMMARY ---
DATE OF ADMISSION: 04/04/2017 DATE OF DISCHARGE: 04/11/2017 DISCHARGE PROVIDER: Ayana Andraed APRN ADMITTING DIAGNOSES: Acute abdominal pain with diverticulitis. DISCHARGE DIAGNOSES 1. Acute abdominal pain with diverticulitis secondary to Alex procedure. 2. Colostomy care. 3. Acute hyponatremia with loss of sodium. 4. Abscesses sigmoid colon due to diverticulitis. 5. Obesity with body mass index greater than 30 with excessive caloric intake. CONSULTATIONS: Surgery for Alex procedure for perforation and abscess of sigmoid colon from diverticulitis. PROCEDURES: Abdominal CT abdomen and pelvis CT with impression sigmoid diverticulitis suspect developing diverticular abscess measuring approximately 3.7 x 3.2 cm and fatty liver with mild splenomegaly. Repeat abdomen and pelvis CT on 04/06/2017 shows impression with enlarging abscess and increasing amount of associated edema due to perforated diverticulitis mid sigmoid colon, mild splenomegaly and right renal lithiasis. HOSPITAL COURSE AND TREATMENT: The patient is a 46-year-old pleasant male who presented with a 1-week history of lower abdominal pain to the ER. The patient was evaluated in the emergency room by the ER provider and he had a white count of 14.4 with a left shift. The patient was found by IV contrast abdominal pelvis CT to have sigmoid diverticulitis with a suspected developing diverticular abscess. At that time, the patient's degree of pain was noted to be 10/10. The patient's past medical history only included a history of kidney stones. He had not had any surgical history nor hospital admissions. He was not a smoker nor did he drink alcohol. The patient's mother and father did have a history of type 2 diabetes. The patient was evaluated by the surgical staff and it was determined for the patient to come in to be further monitored and watched for developing abscess. The patient was placed on n.p.o. and given IV fluids for gentle hydration. Pain was managed with IV Dilaudid. He was started on IV Zosyn and General Surgery, Dr. Quiles saw the patient at bedside for consultation. The patient's lactate level was checked and was within normal limits. On the second day of inpatient stay the patient was experiencing more pain, white count was still elevated and he returned for an abdominal pelvic CT which then showed a larger abscess with probable perforation of the mid sigmoid colon from diverticulitis. Surgery consulted on the patient again at bedside and determined that he would go in and do a Alex procedure with colonostomy. The patient remained on IV Zosyn and was also placed on IV Flagyl. The patient was also placed on a [employer] pump with morphine for pain control. Vital signs and daily labs were monitored. White blood cell count did improve. On day of admission had resulted in a white blood cell count of 8.5 and was within normal limits. All electrolytes were monitored and magnesium corrected and sodium corrected. The patient was given Colace and MiraLax for bowel regime. He was given Zofran and Reglan for nausea and vomiting and Protonix daily 40 mg IV and then to p.o. for PPI. The patient's surgical site was healing well on the day of discharge. There is minimal drainage. No erythema was noted. The patient' s ostomy site was less dusky than the day before. Stoma was patent. He had not passed significant stool or gas yet; however, was up ambulating with no difficulty, and at that point was tolerating a full diet. The patient was anxious to be discharged home. The abdomen was soft and nontender and nondistended. He did still have mild pain with ambulation. On the day of discharge, the patient was on oral tramadol and Percocet for pain. He was continued on Florastar for probiotic and he was transitioned to Ceftin twice a day for antibiotic prophylaxis. The patient was to go home with family. He was instructed to followup on Thursday, 2 days after discharge with surgical services for reevaluation of the colostomy bag and colostomy site. He was given educational materials and taught about colostomy care by outpatient clinic and nursing staff. On the day of discharge, the patient's vital signs were within normal limits. He was ambulatory and stable for discharge. He was instructed to continue on antibiotics for 2 weeks given, pain medication prescription and prescriptions for stool softeners. MEDICATIONS GIVEN AT DISCHARGE 1. Tramadol. 2. Zofran. 3. Ceftin. 4. MiraLax. 5. Percocet. 6. Senna. 7. Theragran multivitamin. PHYSICAL EXAMINATION CONSTITUTIONAL: The patient is alert, in no acute distress. EYES: Pupils are equal, round and react to light and accommodation. Conjunctivae and sclerae was nonicteric, not injected. ENT: Nares are patent. No nasal discharge. Oropharynx. No masses, exudates or lesions. Mucous membranes are moist. NECK: Supple. No thyromegaly. CARDIOVASCULAR: S1, S2 are noted. No gallops, murmurs or rubs. Normal PMI. No JVD. GASTROINTESTINAL: Abdomen was soft, nontender. Noted ostomy bag to lower left quadrant with scant output with serous output. NEUROLOGIC: The patient is alert, GCS 15. Cranial nerves 2 through 7 grossly intact. Sensory is intact. HEMATOLOGIC: No active bleeding. The patient was hemodynamically stable. LYMPHATICS: No cervical, axillary lymphadenopathy noted. GENITOURINARY: There is no CVA tenderness. VITAL SIGNS: Temperature 36.5, heart rate 84, blood pressure 134/84, respirations 18. Saturating 98% on room air. INSTRUCTIONS FOR DISCHARGE AND FOLLOWUP Activity. The patient has been instructed to get up and walk and be ambulating as much as possible to help move air and gas through the colon. He understands that he is to take pain medication as prescribed and take stool softeners to help avoid constipation with pain medicine. Rest as needed, make sure to get 7- 8 of restful sleep at night. DIET: Continue on your regular diet, high fiber, low fat, continue on stool softeners. Avoid soda and limit sugar and limit caffeine. FOLLOWUP: The patient has been instructed to followup with the surgical team on Thursday, 2 days after discharge. He has been provided ostomy supplies and has gone through teaching with outpatient ostomy nurse, as well as nursing staff on floor. The patient verbally understood these instructions. His questions were answered by inpatient team. The patient was also given prescriptions by nursing staff prior to discharge. The patient understands he is to return to the ER for worsening symptoms of abdominal pain and inability to pass gas or excessive distention of abdomen. He also understands he is to keep appointment on Thursday with the surgical team. Time spent on discharge was about 40 minutes for planning, education and assessment. STATUS: The patient remained a FULL CODE STATUS during treatment. The patient is to be taken home with and personal vehicle. JOB #: [id number] EXT JOB #:[id number] [facility]
== END 2017-04-11 12:45 | disposition home health service (06) | DRG 330 ==
LOC: ED 00:28 → MS 04:41 → ICU 04-06 21:33 → MS 04-06 21:37
PROVIDERS: ADMIT Specialist; ATTEND Nurse Practitioner
PROC: 0D1N0Z4 Bypass Sigmoid Colon to Cutaneous, Open Approach (ICD-10-PCS; 2017-04-06)
PROC: 0DTG0ZZ Resection of Left Large Intestine, Open Approach (ICD-10-PCS; principal; 2017-04-06 17:00)
DX: K57.20 Diverticulitis of large intestine with perforation and abscess without bleeding (principal); E87.1 Hypo-osmolality and hyponatremia; E66.09 Other obesity due to excess calories; N20.0 Calculus of kidney; Z68.34 Body mass index [BMI] 34.0-34.9, adult; Z93.3 Colostomy status; Z87.442 Personal history of urinary calculi
CPT/HCPCS: 36415; 74022; 74177; 80053; 81001; 81003; 82150; 83036; 83605; 83690; 83735; 84100; 85025; 85610; 85730; 86140; 86850; 86900; 86901; 86920; 87070; 87075; 87086; 87205; 88307; 96374; 99283; 99284; 99285

== ENCOUNTER 2017-04-28 11:00 | Outpatient (CLI) | payer MEDICAID | END 2017-04-28 11:01 | LOC: LAB.R 11:00 | PROVIDERS: ATTEND Surgery | DX: L08.9 Local infection of the skin and subcutaneous tissue, unspecified (principal) | CPT/HCPCS: 87070; 87205 ==

== ENCOUNTER 2017-06-12 11:38 | Outpatient (CLI) | payer MEDICAID ==
[2017-06-12 12:23] LABS: HEMOGLOBIN A1C 0.58 g/dL
== END 2017-06-12 11:39 | disposition home or self-care (01) ==
LOC: LAB 11:38
PROVIDERS: ATTEND Surgery
DX: Z93.3 Colostomy status (principal)
CPT/HCPCS: 36415; 83036

== ENCOUNTER 2017-07-20 06:18 | Inpatient (IN) | payer MEDICAID ==
[2017-07-20] MEDS ORDERED: metroNIDAZOLE 500 MG/100 ML 100 ML ONE (06:33)
[2017-07-20] MEDS ORDERED: LACTATED RINGERS 1,000 ML IV ONE ×3 (06:35→11:15)
[2017-07-20] MEDS ORDERED: ceFAZolin 3 GM in SODIUM CHLORIDE 0.9% 100ML 100 ML IV SCH (07:00)
--- NOTE | 2017-07-20 07:41 | HISTORY & PHYSICAL EXAMINATION ---
HPI - History of Present Illness HPI Comment/Other: History of Present Illness: Patient is here today for a consult, for a colostomy takedown. Faraz underwent sigmoidectomy and end colostomy on April [address] Reveles for perforated diverticulitis and is here today for reversal of colostomy. Current Meds: None Allergies: NKDA Past Medical History: Reviewed history and no changes required: Hyperlipidemia Siezure pre-diabetes Social History: Reviewed history and no changes required: Risk Factors: Smoked Tobacco Use: Never smoker Drug use: no Alcohol use: no Exercise: no Family History Risk Factors: Family History of PA in males < 55 years old: no Previous Tobacco Use: Physical Exam General: normal appearance and obese. Lungs: clear bilaterally to A & P Heart: regular rate and rhythm, S1, S2 without murmurs, rubs, gallops, or clicks Abdomen: Incisional scar is healing well. Stoma is in place with no palpable parastomal hernia. Abdomen is soft and nondistended. Pulses: pulses normal in all 4 extremities Extremities: no clubbing, cyanosis, edema, or deformity noted with normal full range of motion of all joints Cervical Nodes: no significant adenopathy Psych: alert and cooperative; normal mood and affect; normal attention span and concentration Impression & Recommendations: Problem # 1: Status post diverting ostomy for perforated diverticulitis Will proceed with lap assisted reversal of colostomy. PMH/PSH - Past Medical History Cardiovascular: positive: High cholesterol Respiratory: positive: None Neuro: positive: None Endocrine/Autoimmune: positive: Other GI: positive: Diverticulitis : positive: Kidney stones HEENT: positive: Chronic vision loss Psych: positive: None Musculoskeletal: positive: None Derm: positive: None MRSA Hx?: No - Past Surgical History General: positive: Other Social & Family Hx - Social History Does the pt smoke?: No Smoking Status: Never smoker Does the pt drink ETOH?: No Does the pt have substance abuse?: No - POLST Patient has POLST: No Meds/Allgy - Home Medications Home Medications: Ambulatory Orders Medication Instructions Recorded Confirmed No Known Home Medications [No 07/14/17 07/14/17 Known Home Medications] - Allergies Allergies/Adverse Reactions: Allergies Allergy/AdvReac Type Severity Reaction Status Date / Time No Known Drug Allergies Allergy Verified 04/04/17 00:34 Exam - Vital Signs Vital Signs: Vital Signs x48h Temp Pulse Resp BP Pulse Ox 07/20/17 06:43 36.3 C L 83 16 125/60 98
[2017-07-20] MEDS ORDERED: BUPIVACAINE 0.25%-EPI 1:200000 PF 30 ML VIAL SUBQ ONE ×2 (09:14)
[2017-07-20] MEDS ORDERED: MIDAZOLAM 2 MG/2 ML VIAL IVP ONE (09:25)
[2017-07-20] MEDS ORDERED: GLYCOPYRROLATE 1 MG/5 ML VIAL IVP ONE (09:25)
[2017-07-20] MEDS ORDERED: PROPOFOL 200 MG/20 ML VIAL IVP ONE (09:25)
[2017-07-20] MEDS ORDERED: fentaNYL 100 MCG/2 ML VIAL IVP ONE (09:25)
[2017-07-20] MEDS ORDERED: NEOSTIGMINE 1 MG/1 ML 10 ML MDV IVP ONE (09:25)
[2017-07-20] MEDS ORDERED: ACETAMINOPHEN 1,000 MG/100 ML 100 ML IV ONE (09:25)
[2017-07-20] MEDS ORDERED: ONDANSETRON 4 MG/2 ML VIAL IVP ONE (09:25)
[2017-07-20] MEDS ORDERED: HYDROmorphone 1 MG/ML SYRINGE IVP ONE (09:25)
[2017-07-20] MEDS ORDERED: ROCURONIUM 50 MG/5 ML VIAL IVP ONE (09:25)
[2017-07-20] MEDS ORDERED: LIDOCAINE-MPF 2% 5 ML VIAL IM ONE (09:25)
[2017-07-20] MEDS ORDERED: ONDANSETRON 4 MG/2 ML VIAL IVP PRN (11:54)
[2017-07-20] MEDS ORDERED: MORPHINE PCA 50 MG IV PRN (11:54)
[2017-07-20] MEDS ORDERED: SODIUM CHLORIDE FLUSH 0.9% 10 ML SYRINGE IVP PRN (11:54)
--- NOTE | 2017-07-20 12:43 | OPERATIVE REPORT ---
DATE OF SURGERY: 07/20/2017 00:00:00 PREOPERATIVE DIAGNOSIS: Colostomy. POSTOPERATIVE DIAGNOSIS: Colostomy. NAME OF PROCEDURE: Takedown of colostomy, laparoscopic extensive lysis of adhesions, mobilization of splenic flexure and colorectal anastomosis. SURGEON: Shanna Valera MD ANESTHESIA: lead section supervisor: Rolly Calixto MD PREOPERATIVE DIAGNOSIS: Colostomy. POSTOPERATIVE DIAGNOSES: SURGEON. INDICATION FOR PROCEDURE: This is a 47-year-old male who underwent an emergent diverting left colostomy with sigmoidectomy for perforated diverticulitis in March of 2017 by Los Quiles MD. He is now presenting for reversal of his ostomy. FINDINGS: After obtaining informed consent from the patient, he was brought into the operating room and positioned on the operating table in the lithotomy position, taking note of pressure points. He was intubated by Anesthesia. A Jaeger catheter was placed. He was prepped and draped in the usual sterile fashion. Prior to draping the patient, the colostomy was closed with a running 3 -0 Vicryl. A timeout was taken according to protocol. The colostomy was from the surrounding skin with a 15 blade, and then, the subcutaneous tissue was from the colostomy with electrocautery down to the level of the fascia. Eventually, the peritoneum was carefully entered and the colostomy fully mobilized. A 2nd layer of a 3-0 silk in a running fashion was placed over the 3-0 vicryl in order to prevent bowel spillage. The colostomy stump was then placed into the abdominal cavity. A small Jeff wound protecting device was placed in the colostomy site. The surgeon's fingers were inserted through this defect, and the anterior abdominal wall was palpated. I was able to feel multiple adhesions to the anterior abdominal wall. A space in the epigastric midline was selected, which was free from adhesions, and with contralateral palpation, a 5 mm port was placed in this location. The Jeff wound protecting device was then twisted upon itself and clamped to allow for insufflation of the abdominal cavity. The 5 mm camera was inserted. Multiple adhesions of the small bowel to the anterior abdominal wall were noted. Under direct visualization, 2 additional 5 mm ports were placed in the patient's right lower abdomen. Adhesions of the small bowel were carefully taken down with a combination of blunt dissection and the harmonic device. Care was taken to protect the underlying bowel during dissection. This portion of the procedure consumed approximately 1 hour of the procedure due to extensive adhesions above and below the umbilicus. Eventually, all adhesions were completely freed. Hemostasis was noted to be achieved. The patient was then positioned with the left side up. Additional omental adhesions to the lateral side wall were dissected with the harmonic device. The line of Toldt was then mobilized fully towards the spleen. I attempted to pull the colon down towards the pelvic brim, but it was foreshortened, and full mobilization of the splenic flexure was required. We began doing this with the ports, which were already in place; however, towards the tip of the splenic flexure I was unable to reach with my instruments, and a 4th 5 mm port was placed in the patient's left lateral abdominal wall. The splenic flexure was fully mobilized. The colon was easily brought down to the pelvis. The colonic stump was noted to have adhesions of the small bowel to the colonic mesentery. These were also carefully taken down with combination of blunt dissection and the harmonic device. Eventually, the colon stump was completely freed from all adhesions. In order to ensure adequate length, a rectal dilator was inserted through the patient's rectum, and the colon was brought down to ensure that it would adequately reach for the anastomosis, and it did. At this point, the bowel was grasped with an atraumatic grasper. The patient was flattened and the abdominal cavity desufflated. The colonic stump was brought out through the colostomy wound site. A location approximately 3 cm distal to the colostomy site was selected for transection. The pursestring device was placed in this location, and a 3-0 Prolene on a Ceferino needle was passed through the pursestring device. The colostomy stump was then amputated and passed off. The bowel was opened, and the 28 mm anvil device was inserted. The pursestring device was closed. The anvil was then inserted back into the abdominal cavity, and again, the Jeff device was twisted upon itself and clamped. The abdominal cavity was reinsufflated. The 28 mm stapling device was attempted to be inserted through the rectum; however, there was some difficulty during this process advancing the stapler. My property management assistant Dr. Calixto irrigated the rectal stump to ensure all stool was removed. He again dilated the rectal stump, and eventually, the 28 mm EEA was able to be advanced appropriately. The needle was opened, and the anvil was connected to the stapling device. This was locked into place. It was closed and then fired. The stapling device was removed and revealed 2 intact doughnuts. Saline was then placed in the pelvic cavity and a leak test performed , and no leak was noted. All irrigation was suctioned free. All ports were then removed. The ostomy fascial defect was closed with a running 0 looped PDS. This was then irrigated. Next, 30 mL of local anesthetic was utilized. The skin incisions were closed with 4-0 Monocryl. The ostomy site was closed with 2 interrupted 3-0 nylons and packed intermittently with 1/4 inch Iodoform packing. Steri-Strips were applied to the skin incisions, and 4 x 4's and tape were applied to the ostomy site. The patient was subsequently extubated and taken to recovery room in stable condition. ESTIMATED BLOOD LOSS: 50 mL. FLUIDS RECEIVED: 2300 mL of crystalloid. URINE OUTPUT: 100 mL. COMPLICATIONS: None. SPECIMEN: Colostomy. JOB #: [id number] EXT JOB #:[id number] [email or web address]
[2017-07-20] MEDS: LACTATED RINGERS 1,000 ML IV SCH ×3 (13:10→23:58)
[2017-07-20] MEDS: ACETAMINOPHEN 1,000 MG/100 ML 100 ML IV SCH ×3 (13:10→23:59)
[2017-07-20] MEDS: SODIUM CHLORIDE FLUSH 0.9% 10 ML SYRINGE IVP SCH ×2 (13:41→20:29)
[2017-07-20] MEDS: INSULIN ASPART 300 UNIT/3 ML PEN SUBQ SCH ×2 (16:49→20:57)
[2017-07-20] MEDS: FAMOTIDINE 20 MG TABLET PO SCH (20:56)
[2017-07-21] MEDS: ACETAMINOPHEN 1,000 MG/100 ML 100 ML IV SCH ×3 (06:00→17:27)
[2017-07-21] MEDS: SODIUM CHLORIDE FLUSH 0.9% 10 ML SYRINGE IVP SCH ×3 (06:02→20:58)
[2017-07-21] MEDS: FAMOTIDINE 20 MG TABLET PO SCH ×2 (08:29→20:52)
[2017-07-21] MEDS: INSULIN ASPART 300 UNIT/3 ML PEN SUBQ SCH ×4 (08:48→20:48)
--- NOTE | 2017-07-21 12:31 | PROVIDER PROGRESS NOTE ---
Subjective - General Admit Date: 07/20/17 Procedure Date: 07/20/17 Post Op Days: 1 Procedure Performed: Lap reversal of colostomy, TREVON, mobilization splenic flexure - Review of Systems Wound/Incisions: positive: Healing well General: positive: No symptoms HEENT: positive: No symptoms Cardiovascular: positive: No symptoms Gastrointestinal: positive: Abdominal pain. negative: Nausea, Flatus Psychiatric: positive: No symptoms - Other Other Information/Narrative: Mild post operative abdominal pain Objective - Patient Data Reviewed Vital Signs: Yes Vital Signs: Vital Signs x48h Temp Pulse Pulse Resp BP Pulse Ox 07/21/17 11:30 37.0 C 90 18 127/79 97 07/21/17 09:00 16 07/21/17 08:00 36.7 C 90 18 134/72 H 95 07/21/17 05:00 36.8 C 86 19 141/78 H 96 Weight: Weight 07/19/17 07/20/17 07/21/17 23:59 23:59 23:59 Weight (kg) 102.5 kg Intake & Output: Intake and Output Totals x24h 07/19/17 07/20/17 07/21/17 23:59 23:59 23:59 Intake Total 3352 500 Output Total 2200 900 Balance 1152 -400 - Lab Results Other Lab Results: Lab Results x24hrs 07/21/17 07/21/17 07/21/17 Range/Units 11:20 07:45 05:52 POC Whole Bld Glucose 126 H 129 H 113 H (70 - 100) mg/dL 07/21/17 07/20/17 07/20/17 Range/Units 01:08 20:37 16:45 POC Whole Bld Glucose 114 H 130 H 125 H (70 - 100) mg/dL 07/20/17 Range/Units 13:27 POC Whole Bld Glucose 130 H (70 - 100) mg/dL - Current Medications Current Medications: Current Medications Generic Name Dose Route Start Last Admin Trade Name Freq PRN Reason Stop Dose Admin Famotidine 20 mg 07/20/17 21:00 07/21/17 08:29 Pepcid PO 20 mg BID NOEMI Administration Lactated Ringer's 1,000 mls @ 100 mls/hr 07/20/17 12:00 07/20/17 23:58 Lr IV 100 mls/hr .Q10H NOEMI Administration Acetaminophen 100 mls @ 400 mls/hr 07/20/17 12:00 07/21/17 11:35 Ofirmev IV 400 mls/hr Q6H NOEMI Administration Insulin Aspart 1 - 5 unit 07/20/17 17:00 07/21/17 08:48 Novolog SUBQ Not Given 0800,1200,1700,2100 NOEMI Protocol Morphine Sulfate/Sodium Chloride 0 mg 07/20/17 11:54 07/20/17 16:17 Morphine [employer] Professor (Use Family [employer] Consumer Science Professor Order Set) IV 50 mg [employer] METALS PRN Administration PAIN Protocol Sodium Chloride 10 ml 07/20/17 14:00 07/21/17 06:02 Normal Saline Flush 0.9% IVP Not Given Q8HR NOEMI - Physical Exam Wound/Incisions: positive: Dressing dry and intact. negative: Drainage General Appearance: positive: No acute distress Respiratory: positive: No respiratory distress Cardiovascular: positive: Regular rate & rhythm Abdomen: positive: Other (soft, non-distended, hypoactive bowel sounds) Extremities: positive: No pedal edema Neurologic/Psychiatric: positive: Oriented x3 Impression/Plan - Problem List Problem List: s/p lap assisted reversal of colostomy, TREVON, mobilization of splenic flexure POD 1 - encourage ambulation - encourage IS - await bowel function. Continue clear liquids for now. - PPI for GI prophylaxis - Lovenox for DVT prophylaxis - continue morphine [employer] MET[employer] for pain control. Will transition to oral meds once tolerating diet.
[2017-07-21] MEDS: ENOXAPARIN 40 MG/0.4 ML SYRINGE SUBQ SCH (13:19)
[2017-07-21] MEDS: LACTATED RINGERS 1,000 ML IV SCH ×2 (18:28→20:52)
[2017-07-22] MEDS: ACETAMINOPHEN 1,000 MG/100 ML 100 ML IV SCH ×4 (00:16→17:23)
[2017-07-22] MEDS: SODIUM CHLORIDE FLUSH 0.9% 10 ML SYRINGE IVP SCH ×2 (05:43→14:42)
[2017-07-22] MEDS: LACTATED RINGERS 1,000 ML IV SCH (07:33)
[2017-07-22] MEDS ORDERED: oxyCODONE 5 MG TABLET PO PRN (09:07)
--- NOTE | 2017-07-22 09:28 | PROVIDER PROGRESS NOTE ---
Subjective - General Admit Date: 07/20/17 Procedure Date: 07/20/17 Post Op Days: 2 Procedure Performed: Lap reversal of colostomy, TREVON, mobilization splenic flexure - Review of Systems Wound/Incisions: positive: Drainage General: positive: No symptoms HEENT: positive: No symptoms Cardiovascular: positive: No symptoms Gastrointestinal: positive: Abdominal pain, Flatus, Hematochezia, Other ( minimal incisional abdominal pain). negative: Nausea Psychiatric: positive: No symptoms Objective - Patient Data Reviewed Vital Signs: Yes Vital Signs: Vital Signs x48h Temp Pulse Resp BP Pulse Ox 07/22/17 07:45 36.7 C 78 19 129/57 L 97 07/22/17 05:43 16 07/22/17 05:12 36.9 C 84 16 132/78 H 97 07/22/17 04:00 16 Weight: Weight 07/20/17 07/21/17 07/22/17 23:59 23:59 23:59 Weight (kg) 102.5 kg Intake & Output: Intake and Output Totals x24h 07/20/17 07/21/17 07/22/17 23:59 23:59 23:59 Intake Total 3352 1140 1425 Output Total 2200 900 400 Balance 4535 391 3278 - Lab Results Other Lab Results: Lab Results x24hrs 07/22/17 07/21/17 07/21/17 Range/Units 07:29 20:22 16:21 POC Whole Bld Glucose 97 104 H 94 (70 - 100) mg/dL 07/21/17 Range/Units 11:20 POC Whole Bld Glucose 126 H (70 - 100) mg/dL - Current Medications Current Medications: Current Medications Generic Name Dose Route Start Last Admin Trade Name Freq PRN Reason Stop Dose Admin Enoxaparin Sodium 40 mg 07/21/17 13:00 07/21/17 13:19 Lovenox SUBQ Not Given DAILY NOEMI Famotidine 20 mg 07/20/17 21:00 07/21/17 20:52 Pepcid PO 20 mg BID NOEMI Administration Acetaminophen 100 mls @ 400 mls/hr 07/20/17 12:00 07/22/17 05:40 Ofirmev IV 400 mls/hr Q6H NOEMI Administration Insulin Aspart 1 - 5 unit 07/20/17 17:00 07/21/17 20:48 Novolog SUBQ Not Given 0800,1200,1700,2100 [facility] Protocol Sodium Chloride 10 ml 07/20/17 14:00 07/22/17 05:43 Normal Saline Flush 0.9% IVP Not Given Q8HR [facility] - Physical Exam Wound/Incisions: positive: Other (ostomy site packing removed. Serous drainage present. no purulent drainage. No erythema.) Respiratory: positive: Breath sounds nml Cardiovascular: positive: Regular rate & rhythm, No murmur Abdomen: positive: Non-tender, No distention, Other (hypoactive bowel sounds) Neurologic/Psychiatric: positive: Oriented x3 Impression/Plan - Problem List Problem List: s/p lap assisted take down of colostomy, TREVON POD 2 - Patient reports a lot of flatus and two episodes of bloody bowel movements. He states these were dark red. There is no documentation in the nurse charting of such. I have requested that the patient alert the nurses with any bowel movement and have alerted the RN to inspect the bowel movements to determine the quality of the blood. He remains hemodynamically stable and denies light headedness or dizziness. I reassured the patient that some bleeding post operatively is normal, but it should stop and it should not be bright red. Will monitor and if persistent will obtain CBC. 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 - ostomy packing removed. Patient will shower and afterwards RN instructed to place gauze and tape on incision site. Remaining dressings removed and will be left open to air. - If no further bleeding episodes, diet tolerated and pain remains well controlled on oral meds patient may be able to be discharged today.
[2017-07-22] MEDS: INSULIN ASPART 300 UNIT/3 ML PEN SUBQ SCH ×3 (10:16→17:22)
[2017-07-22] MEDS: ENOXAPARIN 40 MG/0.4 ML SYRINGE SUBQ SCH (10:55)
[2017-07-22] MEDS: FAMOTIDINE 20 MG TABLET PO SCH (10:56)
--- NOTE | 2017-07-22 11:20 | Discharge Plan ---
Discharge Plan Disposition: 01 Home, Self Care Condition: Good Prescriptions: Oxycodone HCl/Acetaminophen [Percocet 5-325 mg Tablet] 2 each PO Q6HR PRN #30 tablet PRN Reason: Pain Diet: Soft Activity Restrictions: Wt Bearing as Tolerated Shower Restrictions: Yes (no tub bathing) Driving Restrictions: Yes (not while on narcotics) Weight Bearing: Full Weight No Smoking: If you smoke, Please STOP! Call for help. Follow-up with: KASIA ESPANA MD [Provider Admit Priv/Credential] - 1 Week
[2017-07-22 18:53] VITALS: BP 145/78
--- NOTE | 2017-08-03 10:33 | DISCHARGE SUMMARY ---
DATE OF ADMISSION: 07/20/2017 DATE OF DISCHARGE: 07/22/2017 DATE OF ADMISSION: 07/20/2017. DATE OF DISCHARGE: 07/22/2017. HOSPITAL COURSE: This is a 47-year-old gentleman who presented for elective laparoscopic-assisted col ostomy takedown. He underwent this procedure without complications and was transferred to the floor p ostoperatively. He was started on a clear liquid diet on postoperative day #1. His Jaeger catheter was removed on postoperative day 1. He was ambulating well and his pain was well controlled off the TINTER PHOTOGRAPH by postoperative day #2. He was stable for discharge on 07/22/2017. He was ambulating well without as sistance. He had experienced 2 nonbloody bowel movements and was tolerating a soft diet. The patient was provided prescription for Percocet for pain control and Colace as a stool softener to go home wit h. He was provided detailed instructions on how to care for himself and his wound postoperatively. He was instructed to followup with me in 2-4 weeks or sooner should he develop any complications. He wa s instructed to change his ostomy wound site daily with dry dressing and to keep the area clean and d ry. CONDITION ON DISCHARGE: The patient's condition on date of discharge was stable. 10:9:00 JOB #: [id number] EXT JOB #:[id number]
== END 2017-07-22 19:25 | disposition home or self-care (01) | DRG 337 ==
LOC: MS2 06:18
PROVIDERS: ADMIT Surgery; ATTEND Surgery
PROC: 0DNM4ZZ Release Descending Colon, Percutaneous Endoscopic Approach (ICD-10-PCS; 2017-07-20)
PROC: 0DSM4ZZ Reposition Descending Colon, Percutaneous Endoscopic Approach (ICD-10-PCS; principal; 2017-07-20 07:30)
DX: Z43.3 Encounter for attention to colostomy (principal); K66.0 Peritoneal adhesions (postprocedural) (postinfection); E78.5 Hyperlipidemia, unspecified; R73.03 Prediabetes; E66.9 Obesity, unspecified; Z68.29 Body mass index [BMI] 29.0-29.9, adult; Z87.19 Personal history of other diseases of the digestive system
CPT/HCPCS: 36415; 86850; 86900; 86901; 88304

== ENCOUNTER 2018-06-28 18:52 | Emergency (ER) | payer MEDICAID ==
[2018-06-28 19:09] VITALS: BP 147/73
[2018-06-28 19:16] LABS: BILIRUBIN,URINE NEGATIVE (NEGATIVE); GLUCOSE, URINE (UA) >=1000 mg/dL (NEGATIVE); KETONES,URINE (UA) NEGATIVE (NEGATIVE); LEUKOCYTE ESTERASE, URINE NEGATIVE (NEGATIVE); NITRITE,URINE NEGATIVE (NEGATIVE); OCCULT BLOOD,URINE NEGATIVE (NEGATIVE); PROTEIN,URINE NEGATIVE (NEGATIVE); UROBILINOGEN,URINE 0.2 (NORMAL) E.U./dL (NORMAL)
[2018-06-28 20:46] LABS: CLARITY,URINE CLEAR (CLEAR)
--- NOTE | 2018-06-28 21:22 | ED Physician Documentation ---
PD HPI MALE - Stated complaint Stated Complaint: MALE - Chief complaint Chief Complaint: Abd Pain - History obtained from History obtained from: Patient - History of Present Illness Timing - onset: How many weeks ago (3) Timing - details: Gradual onset, Still present Associated symptoms: Genital sore / lesion Similar symptoms before: Has not had sx before Recently seen: Not recently seen - Additional information Additional information: Patient is a 48 year old male who is presenting to the emergency department for a lesion on his penis. patient reports that it has been going on for the last couple of weeks but he just got insurance a few days ago. Patient tried to make an outpatient follow up appointment but was unsuccessful. Review of Systems Ten Systems: 10 systems reviewed and negative Constitutional: denies: Fever, Chills : reports: Other (penile lesion). denies: Dysuria, Frequency PD PAST MEDICAL HISTORY - Past Medical History Past Medical History: Yes Cardiovascular: High cholesterol Respiratory: None Endocrine/Autoimmune: Other GI: Diverticulitis : Kidney stones HEENT: Chronic vision loss Psych: None Musculoskeletal: None Derm: None - Past Surgical History Past Surgical History: Yes General: Other - Present Medications Home Medications: Ambulatory Orders Medication Instructions Recorded Confirmed Clotrimazole/Betamethasone Dip 15 gm TP BID #1 cream..g. 06/28/18 [Clotrimazole-Betamethasone [facility]] - Allergies Allergies/Adverse Reactions: Allergies Allergy/AdvReac Type Severity Reaction Status Date / Time No Known Drug Allergies Allergy Verified 06/28/18 19:20 - Social History Does the pt smoke?: No Smoking Status: Never smoker Does the pt drink ETOH?: No Does the pt have substance abuse?: No - Immunizations Immunizations are current?: Yes - POLST Patient has POLST: No PD ED PE NORMAL - Vitals Vital signs reviewed: Yes - General General: Alert and oriented X 3, No acute distress - HEENT HEENT: Atraumatic - Cardiac Cardiac: RRR - Respiratory Respiratory: No respiratory distress - Abdomen Abdomen: Soft, Non tender, Non distended - Extremities Extremities: No deformity PD ED PE EXPANDED - Male Male : Skin lesions (multiple lesionss on the foreskin. appears to be dry skin, cracked lesions. no ulcerations). No: Circumcised, Tenderness Results - Vitals Vitals: Vital Signs - 24 hr 06/28/18 19:06 Temperature 36.3 C L Heart Rate 82 Respiratory 16 Rate Blood Pressure 147/73 H O2 Saturation 100 Oxygen O2 Source Room air - Labs Labs: Laboratory Tests 06/28/18 19:05 Urine Color YELLOW Urine Clarity CLEAR Urine pH 6.0 Ur Specific [place] <=1.005 Urine Protein NEGATIVE Urine Glucose (UA) >=1000 H Urine Ketones NEGATIVE Urine Occult Blood NEGATIVE Urine Nitrite NEGATIVE Urine Bilirubin NEGATIVE Urine Urobilinogen 0.2 (NORMAL) Ur Leukocyte Esterase NEGATIVE Ur Microscopic Review NOT INDICATED Urine Culture Comments NOT INDICATED PD MEDICAL DECISION MAKING - ED course Complexity details: reviewed old records, reviewed results, re-evaluated patient , considered differential, d/w patient ED course: Patient was seen and examined at bedside. urine was collected. Patient's exam was more consistent with candidiasis than a sexually transmitted disease. prescriptions were writtent and patient was stable for discharge with outpatient follow up. - Sepsis Event Vital Signs: Vital Signs - 24 hr 06/28/18 19:06 Temperature 36.3 C L Heart Rate 82 Respiratory 16 Rate Blood Pressure 147/73 H O2 Saturation 100 Oxygen O2 Source Room air Departure - Departure Disposition: 01 Home, Self Care Clinical Impression: Janessa infection of genital region Condition: Good Instructions: ED Candidiasis Cutaneous Follow-Up: [facility] [Provider Group] Prescriptions: Clotrimazole/Betamethasone Dip [Clotrimazole-Betamethasone Crm] 15 gm TP BID #1 cream..g. Comments: You should apply the cream twice a day. You will also need to follow up with your doctor to schedule an appointment with a urologist or you can call the number listed above to schedule a follow up appointment. you may return to the emergency department at any time for new, worsening or uncontrollable symptoms. Discharge Date/Time: 06/28/18 21:31
== END 2018-06-28 21:31 | disposition home or self-care (01) ==
LOC: ED 18:52
DX: B37.49 Other urogenital candidiasis (principal)
CPT/HCPCS: 81001; 81003; 87086; 87491; 87591; 99283

== ENCOUNTER 2021-06-15 14:45 | Emergency (ER) | payer MEDICAID ==
[2021-06-15] MEDS ORDERED: oxyCODONE 5 MG TABLET PO STA (15:10)
[2021-06-15] MEDS ORDERED: AMOX/CLAV 875 MG/125 MG TABLET PO STA (15:10)
--- NOTE | 2021-06-15 15:17 | ED Physician Documentation ---
History of Present Illness - Stated complaint Stated Complaint: TOOTH PX - Chief complaint Chief Complaint: Heent - Additonal information Additional information: 50-year-old male presents emergency department for evaluation of acute right up per mouth pain. He reports tooth #7 broke about 4 years ago and he never saw a dentist. 2 days ago he began having severe pain and noticed some fluctuance in the gum this morning. No fevers no trismus. Patient is a diabetic. He is going to try and see [facility] dental clinic in the emergency clinic on Thursday. Review of Systems Constitutional: denies: Fever, Chills Throat: reports: Dental pain / toothache Cardiac: reports: Reviewed and negative Respiratory: reports: Reviewed and negative GI: reports: Reviewed and negative : reports: Reviewed and negative PD PAST MEDICAL HISTORY - Past Medical History Past Medical History: Yes Cardiovascular: High cholesterol Respiratory: None Endocrine/Autoimmune: Type 2 diabetes GI: Diverticulitis : Kidney stones HEENT: Chronic vision loss Psych: None Musculoskeletal: None Derm: None - Past Surgical History Past Surgical History: Yes General: Other - Present Medications Home Medications: Ambulatory Orders Medication Instructions Recorded Confirmed Amox/Clav 875/125 [Augmentin] 1 each PO Q12H #20 tablet 06/15/21 Atorvastatin [Lipitor] 10 mg PO DAILY PM 06/15/21 06/15/21 Glipizide [Glipizide ER] 5 mg PO DAILY 06/15/21 06/15/21 metFORMIN [Glucophage] 1,000 mg PO BID 06/15/21 06/15/21 oxyCODONE [Roxicodone] 5 mg PO BID PRN #5 tablet 06/15/21 - Allergies Allergies/Adverse Reactions: Allergies Allergy/AdvReac Type Severity Reaction Status Date / Time No Known Drug Allergies Allergy Verified 06/15/21 14:59 - Social History Does the pt smoke?: No Smoking Status: Never smoker Does the pt drink ETOH?: No Does the pt have substance abuse?: No - Immunizations Immunizations are current?: Yes - POLST Patient has POLST: No PD ED PE EXPANDED - General General: Alert, No acute distress, Well developed/nourished - HEENT HEENT: Atraumatic, PERRL, Moist mucous membranes, Pharynx normal, Dental decay, Dental abscess (Fluctuant abscess noted just above tooth #7 in the gumline. It was lanced with an 18-gauge needle and a moderate amount of purulent fluid drained. Much improvement in pain.) Results - Vitals Vitals: Vital Signs - 24 hr 06/15/21 14:51 Temperature 36.4 C L Heart Rate 74 Respiratory 15 Rate Blood Pressure 184/87 H O2 Saturation 99 Oxygen O2 Source Room air PD MEDICAL DECISION MAKING - ED course Complexity details: d/w patient ED course: 50-year-old male presents emergency department for evaluation of 2 days right upper mouth pain at the site of DKA where tooth #7 once sat. He did have a dental abscess that was lanced at the bedside with an 18-gauge needle. Moderate amount of purulent fluid drained. Patient will be started on Augmentin as well as a very limited amount of oxycodone for pain. He is to follow-up with the dental clinic on Thursday. No red flags such as trismus dysphonia or fevers. Emergent return precautions were discussed. I am prescribing a short course of short-acting opioid pain medication for this patient. I have reviewed the patients [employer] and no concerning findings were noted. I have discussed that the opioids are for short term therapy only, and will not be refilled from the ED. Departure - Departure Disposition: Home, Self Care Clinical Impression: Dental abscess Condition: Stable Record reviewed to determine appropriate education?: Yes Instructions: ED Abscess Dental Prescriptions: Amox/Clav 875/125 [Augmentin] 1 each PO Q12H #20 tablet oxyCODONE [Roxicodone] 5 mg PO BID PRN #5 tablet PRN Reason: Pain Comments: Faraz you do have a dental abscess above tooth #7. This was lanced at the bedside. It is very important that you fill the prescription for the antibiotics and take twice daily for the next 10 days. I have prescribed a very limited amount of oxycodone for severe pain only. I would like you to rinse your mouth with warm salt water 3 times a day. It is important that you follow-up with the dental clinic on Thursday. If at any point you develop fevers, facial swelling, cannot open your mouth or swallow please return immediately to the ER. It is very important that you see a dentist as only a dentist is going to be able to prevent this from reoccurring in the future. I am prescribing a short course of narcotic pain medication for you. These are potentially dangerous and addictive medications that should be used carefully. These medications may constipate you. Take an [id number] stool softener (docusate) twice daily with plenty of water while taking these medications. If you go 24 hours without a bowel movement, take [id number] miralax, per package instructions. Do not drink or drive while taking these medications. If you received narcotic or sedating medications while in the emergency department, do not drive for 24 hours. Store this medication in a safe, secure place and out of reach of children. It is a violation of federal law to give or sell this medication to another person or to use in a manner other than prescribed. The ED will not refill narcotic prescriptions, including prescriptions lost or stolen. To dispose of unwanted medications: 1. [facility] at [address] in [place] has a medication drop box. They accept prescription medications (in pill form) Thursday through Thursday 9:00 a.m. to 5:00 p.m. 2. The [facility] accepts prescription medications (in pill form only) for disposal year round. Call for more information. 3. Contact the [facility] for the next [facility] sponsored prescription drug collection event. , [phone], or [phone]; Note that many narcotic pain relievers also contain Tylenol/acetaminophen. Please ensure that your total dose of acetaminophen from all sources does not exceed 3 g (3000 mg) per day.
[2021-06-15 15:33] VITALS: BP 188/96
== END 2021-06-15 15:32 | disposition home or self-care (01) ==
LOC: ED 14:45
DX: K04.7 Periapical abscess without sinus (principal); E11.9 Type 2 diabetes mellitus without complications; Z79.84 Long term (current) use of oral hypoglycemic drugs
CPT/HCPCS: 41800; 99282; 99283; A9270